=== PATIENT | male | born 1965 | race Caucasian/White ===

== ENCOUNTER 2023-04-12 19:23 | Inpatient (IN) | payer MEDICARE, SELFPAY ==
[2023-04-12] VITALS (26 sets, daily range): BP systolic 107–149; BP diastolic 75–104; PULSE 68–109; RESP 14–25; TEMP 36.7–37.2; O2SAT 88–98; BMI 78.2; BMI 75.4
--- NOTE | 2023-04-12 19:25 | XRR_ITS ---
PROCEDURE INFORMATION: Exam: XR Chest Exam date and time: 04/12/2023 7:30 PM Age: 57 years old Clinical indication: Device placement; Ett placement (vent status); Additional info: Resp failure, intubation TECHNIQUE: Imaging protocol: Radiologic exam of the chest. Views: 1 view. COMPARISON: CR XR chest 1V [id number] 05/07/2018 1:07 PM FINDINGS: Tubes, catheters and devices: The tip of the ETT lies about 1 cm above the merari. Lungs: There is extensive infiltrate and volume loss throughout both lungs. Pleural spaces: Unremarkable. No pleural effusion. No pneumothorax. Heart/Mediastinum: Unremarkable. No cardiomegaly. Bones/joints: Unremarkable. XR/XR chest 1V portable [id number] IMPRESSION: 1. Severe bilateral pulmonary infiltrates 2. The ETT tip lies 1 cm above the merari
--- NOTE | 2023-04-12 19:32 | W.ED.GENADLT ---
HPI - General Adult General: Chief complaint: Shortness of Breath/Dyspnea Stated complaint: respiratory distress Time Seen by Provider: 04/12/23 19:25 Mode of arrival: EMS Limitations: other (Arrived intubated) History of Present Illness: Patient presented to the ER by EMS with respiratory failure. Patient has been having problems breathing all day long. Patient's O2 sat was approximately 50% on room air and he said his heart rate bradycardia all the way down into the 40s Patient was intubated in the field by EMS. They performed RSI with rocuronium and etomidate patient is normally supposed to be on oxygen but he did not have his oxygen on at that time. His initial CO2 per EMS was in the 90s and by the time they got him here he was in the 80s. Patient is morbidly obese. No other information is known about him. There is no family members with him. Review of Systems General: Reports: ROS unobtainable due to endotracheal tube PFSH ED PFSH: Medical History Lymphedema Neuropathy HTN (hypertension) Obesity Surgical History Hx of tonsillectomy H/O hernia repair Hx of cholecystectomy Hx of appendectomy Social History Smoking and tobacco/nicotine status: never used tobacco/nicotine Alcohol intake: current Alcohol intake frequency: holidays/special occasions only Substance/Drug Use: never Physical Exam Const: OTHER: Morbidly obese, RSI, intubated HENMT: COMMON NORMALS: normocephalic and atraumatic HEAD & SCALP: normocephalic and atraumatic OTHER: ET tube in place Eye: OTHER: Pinpoint pupils Chest: COMMONS NORMALS: normal inspection of the chest and normal palpation of entire chest wall Resp: OTHER: Decreased breath sounds throughout Cardio: COMMON NORMALS: regular rate, regular rhythm, S1 normal heart sound present and S2 normal heart sound present RATE: regular rate RHYTHM: regular rhythm HEART SOUNDS: S1 normal heart sound present and S2 normal heart sound present GI: COMMON NORMALS: Normal to inspection, nondistended, normoactive bowel sounds present, Soft to palpation and no masses PALPATION: Yes Soft to palpation Course Vital Signs: Vital signs: Vital Signs Temperature 98.9 F 04/12/23 22:55 Pulse Rate 71 04/13/23 00:15 Respiratory Rate 16 04/13/23 00:17 Blood Pressure 145/103 04/13/23 00:15 Pulse Oximetry 95 04/13/23 00:17 Oxygen Delivery Me thod Mechanical Ventil ation 04/13/23 00:15 Fraction of Inspir ed Oxygen 100 04/13/23 00:17 MDM - General Adult Medical Decision Making Patient presents to the ER and abated paralyzed by RSI by EMS. Patient was placed on our vent by respiratory and a blood gas was obtained as well as lab work chest x-ray. During his process patient started to wake up patient was given 5 mg of Versed, put on a Versed drip, given 20 mg of etomidate, put on a Precedex drip, the Versed drip and Precedex drip were titrated up per protocol. Chest x-ray showed severe bilateral pulmonary infiltrates. Patient is requiring 100% oxygen on the ventilator to keep his saturation upwards of 90+ percent. Patient was bolused 1 L normal saline. Patient's lactic acid was 5.0. Patient's BNP was approximately 5600. Urine urine drug screen influenza and COVID were negative. Dr. Diaz was consulted who agreed to accept the patient to the ICU for further evaluation and treatment. Differential Diagnosis Respiratory failure Medical Records I reviewed the patient's medical records. Lab Data I reviewed the patient's lab results. 04/13/23 03:03 04/13/23 03:03 Radiology Impressions Chest X-Ray 04/12/23 21:32 IMPRESSION: Tip of the feeding tube is beyond the field of view, distal to the gastroesophageal junction. Laboratory Results WBC 12.80 10^3/uL (3.29-11.43) H 04/12/23 19:25 RBC 5.45 10^6/uL (3.85-5.65) 04/12/23 19:25 Hgb 14.90 g/dL (11.27-16.99) 04/12/23 19:25 Hct 51.2 % (37-53) 04/12/23 19:25 MCV 93.9 fl (82-101) 04/12/23 19:25 MCH 27.3 pg (27-33) 04/12/23 19: MCHC 29.1 g/dL (30-55) L 04/12/23 19: RDW 14.7 % (12.1-15.1) 04/12/23 19: Plt Count 270 10^3/cmm (157-399) 04/12/23 19: MPV 9.5 fL (7.4-10.4) 04/12/23 19: Neut % (Auto) 66.1 % 04/12/23 19:25 Lymph % (Auto) 18.9 % 04/12/23 19:25 Lyman % (Auto) 12.3 % 04/12/23 19:25 Eos % (Auto) 0.0 % 04/12/23: Baso % (Auto) 0.2 % 04/12/23: Neut # (Auto) 8.47 10^3/uL (1.8-7.7) H 04/12/23 19: Lymph # (Auto) 2.4 10^3/uL (0.8-4.8) 04/12/23 19:25 Lyman # (Auto) 1.6 10^3/uL (0.2-0.9) H 04/12/23 19:25 Eos # (Auto) 0.0 10^3/uL (0.0-0.8) 04/12/23 19: Baso # (Auto) 0.0 10^3/uL (0.0-0.1) 04/12/23: Nucleated RBC % (auto) 1.2 % 04/12/23: Nucleated RBCs # 0.2 /100WBC 04/12/23 19:25 Specimen Type Arterial 04/12/23 21:25 Sample Site Radial, right 04/12/23 21:25 ABG pH 7.33 (7.35-7.45) L 04/12/23 21:25 ABG pCO2 64.1 mmHg (35-45) H* 04/12/23 21: ABG pO2 72.1 mmHg (80.0-100.0) L 04/12/23 21: ABG PO2/FiO2 Ratio 0 04/12/23 21: ABG HCO3 33.8 mmol/L (22-26) H 04/12/23 21:25 ABG O2 Saturation 92.0 04/12/23 19:40 ABG Base Excess 5.5 mmol/L (-2.0-2.0) H 04/12/23 21:25 Marcos Test Pos 04/12/23 21:25 A-a O2 Gradient 71.8 mmHg (5-10) H 04/12/23 19:40 Hematocrit 45.3 % (42-52) 04/12/23 21:25 Hgb O2 Saturation 89.4 % (95-100) L 04/12/23 19:40 Carboxyhemoglobin 2.1 %THgb (0.4-20.1) 04/12/23 19:40 Methemoglobin 0.7 % (0.4-1.5) 04/12/23 19:40 Total Hemoglobin 15.1 g/dL (14-18) 04/12/23 19:40 Sodium 139.0 mmol/L (131-143) 04/12/23 19:40 Potassium 4.8 mmol/L (3.5-5.0) 04/12/23 19:40 Glucose 177.0 mg/dL (70-115) H 04/12/23 19:40 Ionized Calcium 1.1 mmol/L (1.1-1.4) 04/12/23 19:40 O2 Delivery Device Vent 04/12/23 21:25 FiO2 100.0 % 04/12/23 21:25 Tidal Volume 0.50 04/12/23 21:25 PEEP 10.0 cmH20 04/12/23 21:25 Supervisor Stitching Department ID [email or web address] 04/12/23 21:25 Sodium 138 mmol/L (136-145) 04/12/23 19:25 Potassium 5.5 mmol/L (3.5-5.1) H 04/12/23 19:25 Chloride 95 mmol/L (98-107) L 04/12/23 19:25 Carbon Dioxide 28 mmol/L (22-29) 04/12/23 19:25 Anion Gap 20.5 (5-19) H 04/12/23 19:25 BUN 22 mg/dL (6-20) H 04/12/23 19:25 Creatinine 1.8 mg/dL (0.7-1.2) H 04/12/23 19:25 GFR Calculation 39.2 mL/min (90-130) L 04/12/23 19:25 Glucose 182 mg/dL (65-115) H 04/12/23 19:25 POC Glucose 160 mg/dL (70-110) H 04/12/23 19:38 Calculated Osmolality 294 mOsm/kg (285-295) 04/12/23 19:25 Lactic Acid 5.0 mmol/L (0.5-2.2) H* 04/12/23 19:25 Calcium 8.5 mg/dL (8.5-10.5) 04/12/23 19:25 Magnesium 2.1 mg/dL (1.7-2.3) 04/12/23 19:25 Total Bilirubin 0.7 mg/dL (0.15-1.2) 04/12/23 19:25 AST 39 U/L (0-40) 04/12/23 19:25 ALT 45 U/L (0-41) H 04/12/23 19:25 Alkaline Phosphatase 85 U/L (40-130) 04/12/23 19:25 Creatine Kinase 800 U/L (39-308) H* 04/12/23 19:25 Troponin T Baseline 47 ng/L (0-15) H 04/12/23 19:25 Troponin T 120 Minute 50.38 ng/L (0-15) H 04/12/23 21:05 Delta Troponin T 3.38 ABS# (0-10) 04/12/23 21:05 NT-Pro-B Natriuret Pep 5601 pg/mL (0-125) H 04/12/23 19:25 Total Protein 6.5 g/dL (6.6-8.7) L 04/12/23 19:25 Albumin 3.6 g/dL (3.5-5.2) 04/12/23 19:25 Globulin 2.9 g/dL (1.3-4.6) 04/12/23 19:25 Procalcitonin 0.16 ng/mL (0-0.5) 04/12/23 19:25 TSH 4.86 uIU/mL (0.27-4.20) H 04/12/23 19:25 Urine Color Yellow (Yellow) 04/12/23 20:01 Urine Appearance Clear (CLEAR) 04/12/23 20:01 Urine pH 5 (5-7) 04/12/23 20:01 Ur Specific Spreckels 1.025 (1.005-1.030) 04/12/23 20:01 Urine Protein 1+ (Negative) H 04/12/23 20:01 Urine Glucose (UA) Norm (Normal) 04/12/23 20:01 Urine Ketones Negative (Negative) 04/12/23 20:01 Urine Blood Neg (Negative) 04/12/23 20: Urine Nitrate Negative (Negative) 04/12/23 20:01 Urine Bilirubin 1+ (Negative) H 04/12/23 20:01 Urine Urobilinogen 1 mg/dL (Negative) H 04/12/23 20:01 Ur Leukocyte Esterase Negative (Negative) 04/12/23 20:01 Urine RBC 0-4 /hpf (0-2) H 04/12/23 20:01 Urine WBC 0-4 /hpf (0-5) H 04/12/23 20:01 Ur Squamous Epith Cells 0-4 /hpf (0-5) H 04/12/23 20:01 Amorphous Sediment Not Reportable 04/12/23 20:01 Urine Bacteria Trace /hpf (NONE) 04/12/23 20:01 Hyaline Casts 10-15 /lpf H 04/12/23 20:01 Fine Granular Casts 0-4 /lpf H 04/12/23 20:01 Urine Mucus 1+ /hpf 04/12/23 20:01 Urine Opiates Screen Negative ng/mL (Negative) 04/12/23 20:01 Ur Barbiturates Screen Negative ng/mL (Negative) 04/12/23 20:01 Ur Phencyclidine Scrn Negative ng/mL (Negative) 04/12/23 20:01 Ur Amphetamines Screen Negative ng/mL (Negative) 04/12/23 20:01 U Benzodiazepines Scrn Negative ng/mL (Negative) 04/12/23 20:01 Urine Cocaine Screen Negative ng/mL (Negative) 04/12/23 20:01 U Marijuana (THC) Screen Negative ng/mL (Negative) 04/12/23 20:01 Influenza Type A Ag negative (Negative) 04/12/23 20:35 Influenza Type B Ag negative (Negative) 04/12/23 20:35 SARS-CoV-2 Ag (Rapid) negative (Negative) 04/12/23 20:01 All radiology interpretation(s) finalized by discharge EKG Data EKG 1: I personally reviewed and interpreted this EKG as follows: EKG interpretation date: 04/12/23 EKG interpretation time: 19:38 Prior EKG tracings: not available for review Interpretation: Ventricular rate 105 bpm, VA interval 129, QRS duration 135, QTc of 431, sinus tachycardia, left axis deviation, right bundle branch block, Computer generated interpretation: Chest X-Ray 04/12/23 21:32 IMPRESSION: Tip of the feeding tube is beyond the field of view, distal to the gastroesophageal junction. EKG 2: I personally reviewed and interpreted this EKG as follows: EKG interpretation date: 04/12/23 EKG interpretation time: 22:09 Prior EKG tracings: not available for review Interpretation: Ventricular rate 68 bpm, VA interval 150, QRS duration 125, QTc of 419, sinus rhythm, borderline left axis deviation, right bundle branch block, Computer generated interpretation: Chest X-Ray 04/12/23 21:32 IMPRESSION: Tip of the feeding tube is beyond the field of view, distal to the gastroesophageal junction. Critical Care Time Critical Care Time: Critical Care Time: Yes Total Critical Care Time: 60 Attestation: The patient was emergently evaluated this patient's presentation and case had a high probability of a clinically significant, sudden, or life-threatening deterioration of the patient's initial critical presentation or condition which required my full and direct attention, intervention and personal management. Discharge Plan Discharge Patient Disposition: Admitted As Inpatient Admit Provider: Geovanni Diaz Clinical Impression: Elevated brain natriuretic peptide (BNP) level, Elevated lactic acid level Community acquired pneumonia Qualifiers: Laterality: unspecified laterality Qualified Code(s): J18.9 - Pneumonia, unspecified organism Acute respiratory failure Qualifiers: Respiratory failure complication: hypoxia and hypercapnia Qualified Code(s): J96.01 - Acute respiratory failure with hypoxia Condition: Stable Coding Level of Care Code ED Boilermaker for Jason Gomez
[2023-04-12 19:36] LABS: Basophils % 0.2 %; Hematocrit 51.2 % (37-53); Lymphocytes # 2.4 10^3/uL (0.8-4.8); Lymphocytes % 18.9 %; Mean Corpuscular HGB Conc 29.1 g/dL (30-55); Mean Corpuscular Hemoglobin 27.3 pg (27-33); Mean Corpuscular Volume 93.9 fl (82-101); Mean Platelet Volume 9.5 fL (7.4-10.4); Monocytes # 1.6 10^3/uL (0.2-0.9); Monocytes % 12.3 %; Neutrophils # 8.47 10^3/uL (1.8-7.7); Neutrophils % 66.1 %; Nucleated Red Blood Cells # 0.2 /100WBC; Nucleated Red Blood Cells % 1.2 %; Platelet Count 270 10^3/cmm (157-399); Red Blood Count 5.45 10^6/uL (3.85-5.65); Red Cell Distribution Width 14.7 % (12.1-15.1)
--- NOTE | 2023-04-12 19:38 | ECG_ITS ---
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 Measurements Intervals [place] Rate: 105 P: -42 [place]: 129 QRS: -57 QRSD: 135 T: -89 QT: 370 QTc: 489 Interpretive Statements SINUS TACHYCARDIA LEFT AXIS DEVIATION [QRS AXIS < -30] RIGHT BUNDLE BRANCH BLOCK [120+ ms QRS DURATION, UPRIGHT V1, 40+ ms S IN I/aVL/V4/V5/V6] MODERATE T-WAVE ABNORMALITY, CONSIDER ANTEROLATERAL ISCHEMIA [-0.1+ mV T-WAVE IN V3-V6] No previous ECG available for comparison Electronically Signed On 04-13-2023 0:41:32 PUBLIC HEALTH AIDE by Prosper Sewell M.D. [id number]
[2023-04-12] MEDS: sodium chloride 0.9% 1,000 ML 999 ML IV (19:39)
[2023-04-12 19:41] LABS: Glucose Point of Care 160 mg/dL (70-110)
[2023-04-12] MEDS: midazolam hcl 100 MG/100 ML BAG IV (19:42)
[2023-04-12 19:47] LABS: ABG PH Result 7.25 (7.35-7.45); Alveolar-Arterial Oxygen Gradi 71.8 mmHg (5-10); Arterial Blood Gas Hematocrit 46.3 % (42-52); Base Excess ABG 2.2 mmol/L (-2.0-2.0); Blood Gas Allen Test Pos; Blood Gas Sample Site Radial, right; Blood Gas Sample Type Arterial; Carboxyhemoglobin 2.1 %THgb (0.4-20.1); HGB O2 Sat 89.4 % (95-100); Ionized Calcium Level - ABG 1.1 mmol/L (1.1-1.4); Methemoglobin 0.7 % (0.4-1.5); Oxygen Device VENT; PO2 ABG 66.2 mmHg (80.0-100.0); PO2 FiO2 Ratio Arterial Blood 0; Potassium Level - ABG 4.8 mmol/L (3.5-5.0); Total Hemoglobin 15.1 g/dL (14-18)
[2023-04-12 19:48] LABS: ABG PCO2 73.1 mmHg (35-45)
[2023-04-12 20:01] LABS: Troponin(5th) Baseline 47 ng/L (0-15)
[2023-04-12] MEDS: midazolam 1 mg/mL INJ 2 mL 4 MG IVP (20:07)
[2023-04-12 20:13] LABS: NT Pro B Type Natriuretic Pept 5601 pg/mL (0-125); Procalcitonin 0.16 ng/mL (0-0.5); Thyroid Stimulating Hormone 4.86 uIU/mL (0.27-4.20)
[2023-04-12 20:24] LABS: Alanine Aminotransferase 45 U/L (0-41); Albumin Level 3.6 g/dL (3.5-5.2); Alkaline Phosphatase 85 U/L (40-130); Aspartate Amino Transferase 39 U/L (0-40); Blood Urea Nitrogen 22 mg/dL (6-20); Calcium 8.5 mg/dL (8.5-10.5); Carbon Dioxide 28 mmol/L (22-29); Chloride 95 mmol/L (98-107); Creatinine Clr Calc Pharmacy 84.5045; Globulin 2.9 g/dL (1.3-4.6); Glomerular Filtration Rate 39.2 mL/min (90-130); Glucose 182 mg/dL (65-115); Magnesium 2.1 mg/dL (1.7-2.3); Osmolality Calculated 294 mOsm/kg (285-295); Sodium 138 mmol/L (136-145); Total Bilirubin 0.7 mg/dL (0.15-1.2); Total Protein 6.5 g/dL (6.6-8.7)
[2023-04-12] MEDS: etomidate 2 mg/mL INJ SDV 10 mL 20 MG IVP (20:25)
[2023-04-12 20:30] LABS: Anion Gap 20.5 (5-19); Potassium 5.5 mmol/L (3.5-5.1)
[2023-04-12] MEDS: dexmedeTOMIDine 0.9 % NaCL 400 MCG/100 ML PREMIX 11.3399999999999999 MCG IV (20:37)
[2023-04-12 20:49] LABS: Amphetamines Screen Urine Negative (Negative); Barbiturates Screen Urine Negative (Negative); Benzodiazepines Screen Urine Negative (Negative); Cocaine Screen Urine Negative (Negative); Opiate Screen Urine Negative (Negative); PCP Screen Urine Negative (Negative); THC Screen Urine Negative (Negative)
[2023-04-12 20:54] LABS: SARS Covid-2 Antigen negative (Negative)
[2023-04-12 20:57] LABS: Blood Urine Neg (Negative); Glucose Urine UA Norm (Normal); Ketones Urine Negative (Negative); Nitrate Urine Negative (Negative); Protein Urine 1+ (Negative); Specific Gravity, Urine 1.025 (1.005-1.030); Urine Appearance Clear (CLEAR); Urine Color Yellow (Yellow); pH Urine 5 (5-7)
[2023-04-12 20:58] LABS: Add Urine Microscopic? YES; Bacteria Urine TRACE /hpf; Bilirubin Urine 1+ (Negative); Leukocyte Esterase Urine Negative (Negative); Mucus Urine 1+ /hpf; RBC Urine 0-4 /hpf (0-2); Squamous Epithelial Cell Urine 0-4 /hpf (0-5); Urobilinogen Urine 1 mg/dL (Negative); WBC Urine 0-4 /hpf (0-5)
[2023-04-12 20:59] LABS: Add Urine Culture? No; Fine Granular Casts Urine 0-4 /lpf
[2023-04-12] MEDS: piperacillin-tazobactam 3.375 GM in sodium chloride 0.9% (plus) 50 ML IV (21:01)
[2023-04-12 21:20] LABS: Reflex Lactate Order REFLEX LACTIC ORDERD
--- NOTE | 2023-04-12 21:26 | ECG_ITS ---
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 Measurements Intervals [place] Rate: 68 P: -27 [place]: 150 QRS: -30 QRSD: 125 T: -61 QT: 401 QTc: 429 Interpretive Statements SINUS RHYTHM BORDERLINE LEFT AXIS DEVIATION [QRS AXIS < -20] RIGHT BUNDLE BRANCH BLOCK [120+ ms QRS DURATION, UPRIGHT V1, 40+ ms S IN I/aVL/V4/V5/V6] MODERATE T-WAVE ABNORMALITY, CONSIDER ANTEROLATERAL ISCHEMIA [-0.1+ mV T-WAVE IN V3-V6] MODERATE T-WAVE ABNORMALITY, CONSIDER INFERIOR ISCHEMIA [-0.1+ mV T-WAVE IN II/aVF] Compared to ECG 04/12/2023 19:38:57 Sinus tachycardia no longer present T-wave abnormality still present Possible ischemia still present Electronically Signed On 04-13-2023 1:05:14 AUTO SERVICE DISPATCHER by Prosper Sewell M.D. [id number]
--- NOTE | 2023-04-12 21:32 | XRR_ITS ---
PROCEDURE INFORMATION: Exam: XR Chest Exam date and time: 04/12/2023 9:44 PM Age: 57 years old Clinical indication: Device placement; Ng tube; Additional info: Og tube placement TECHNIQUE: Imaging protocol: Radiologic exam of the chest. Views: 1 view. COMPARISON: CR XR chest 1V portable [id number] 04/12/2023 7:30 PM FINDINGS: Tubes, catheters and devices: Tip of the feeding tube is beyond the field of view, distal to the gastroesophageal junction. ET tube is in 1 cm above the merari. Lungs: Similar extensive infiltrates and volume loss of the left lung with improved aeration of the right lung. Poor inspiratory effort. Pleural spaces: Unremarkable. No pleural effusion. No pneumothorax. Heart/Mediastinum: Unremarkable. No cardiomegaly. Bones/joints: Unremarkable. XR/XR chest 1V portable [id number] IMPRESSION: Tip of the feeding tube is beyond the field of view, distal to the gastroesophageal junction.
[2023-04-12 21:33] LABS: Troponin 5 2HR 50.38 ng/L (0-15); Troponin 5 2HR Delta 3.38 ABS# (0-10)
[2023-04-12 21:34] LABS: ABG PCO2 64.1 mmHg (35-45); ABG PH Result 7.33 (7.35-7.45); Arterial Blood Gas Hematocrit 45.3 % (42-52); Base Excess ABG 5.5 mmol/L (-2.0-2.0); Blood Gas Allen Test Pos; Blood Gas Sample Site Radial, right; Blood Gas Sample Type Arterial; HCO3 ABG 33.8 mmol/L (22-26); Oxygen Device VENT; PO2 ABG 72.1 mmHg (80.0-100.0); PO2 FiO2 Ratio Arterial Blood 0
[2023-04-12 21:42] LABS: Influenza A by IFA negative (Negative); Influenza B by IFA negative (Negative)
--- NOTE | 2023-04-12 22:19 | P.HP_ITS ---
Providers/Chief Complaint 2 Admitting Physician: Geovanni Diaz Chief Complaint: respiratory distress History of Present Illness 57-year-old gentleman was intubated and route to the hospital due to acute on chronic respiratory failure with oxygen saturation reported at home and 50s on room air, reportedly had oxygen but was not using it for some reason. He reportedly had problems breathing today through the day. In ER his saturations are in the low 90s on 100% FiO2, PEEP of 10, ABG 7.25/73/66.2/32. Intermittently with noted lactic acidosis of 5, acute kidney injury creatinine 1.8, BUN 22. Potassium 5.5. TSH 4.86. Chest x-ray with severe bilateral pulmonary infiltrates. Review of Systems 2 General: Reports: ROS unobtainable due to endotracheal tube Medications/Allergies Allergies Allergy/AdvReac Type Severity Reaction Status Date / Time No Known Allergies Allergy Verified 04/12/23 19:33 PFSH Acute 2 PFSH: Medical History Lymphedema Neuropathy HTN (hypertension) Obesity Surgical History Hx of tonsillectomy H/O hernia repair Hx of cholecystectomy Hx of appendectomy Social History Smoking and tobacco/nicotine status: never used tobacco/nicotine Alcohol intake: current Alcohol intake frequency: holidays/special occasions only Substance/Drug Use: never Vitals/I&O/Wt Last Vital Signs Temp 98.0 F 04/12/23 19:26 Pulse 109 H 04/12/23 19:26 Resp 16 04/12/23 22:01 BP 108/78 04/12/23 19:26 Pulse Ox 93 04/12/23 22:01 O2 Del Method Mechanical Ventilation 04/12/23 22:01 FiO2 100 04/12/23 22:01 04/12/23 04/12/23 04/12/23 06:59 14:59 22:59 Intake Total 1020.905 / 1020.905 Balance 1020.905 / 1020.905 Weight last 48 hrs Weight 226.796 kg Physical Exam 2 Const: COMMON NORMALS: negative for alert GENERAL APPEARANCE: patient mechanically ventilated NUTRITIONAL APPEARANCE: obese morbidly obese O RIENTATION/CONSCIOUSNESS: not awake HENMT: COMMON NORMALS: oropharynx normal Neck/C-Spine: OTHER: Unable to assess for JVD Resp: COMMON NORMALS: normal respiratory effort and clear to auscultation bilaterally AUSCULTATION: clear to auscultation bilaterally Cardio: COMMON NORMALS: no JVD, regular rhythm, S1 normal heart sound present, S2 normal heart sound present and No murmurs present (Cardio) RHYTHM: regular rhythm HEART SOUNDS: S1 normal heart sound present and S2 normal heart sound present GI: COMMON NORMALS: Normal to inspection, nondistended, normoactive bowel sounds present, Soft to palpation and non-tender PALPATION: Yes Soft to palpation Extremity: COMMON NORMALS: no joint enlargement and no pedal edema Neuro: SENSORIUM/ORIENTATION: Yes alert Skin: OTHER: No visible rashes. Sepsis: Is patient septic: Yes Focused sepsis exam: Good capillary refill, no mottling or cyanosis. Data 04/12/23 19:25 04/12/23 19:25 Micro: Microbiology 04/12/23 21:05 Blood Culture - Preliminary Blood SPECIMEN COLLECTED 04/12/23 21:05 Blood Culture - Preliminary Blood SPECIMEN COLLECTED A&P Assessment and plan (1) Acute respiratory failure: Acute on possibly chronic respiratory failure, reportedly he had oxygen at home but was not using it. Saturation in the 50s on arrival of EMS. Intubated and round. Continues on 100% FiO2, PEEP 10. Saturation in low 90s. Bilateral pneumonia on chest x-ray. Received Zosyn. Sepsis complicated with lactic acidosis, TITI. Received bolus of fluids. Noted elevated BNP. Unknown cardiac function. Continue empiric antibiotic coverage with Zosyn, linezolid with monitoring for agranulocytosis due to risk. Obtain COVID PCR, sputum culture, urine bacterial antigens, urine Legionella antigen, MRSA PCR. Continue mechanical ventilatory support, sedation with Versed, additionally has Precedex on board, was trying to self extubate earlier. Monitor blood pressure. Heart rate. Discussed with ER provider and nursing staff. Admitted to ICU. Stress ulcer and DVT prophylaxis. Qualifiers: Respiratory failure complication: hypoxia and hypercapnia Qualified Code(s): J96.01 - Acute respiratory failure with hypoxia; J96.02 - Acute respiratory failure with hypercapnia (2) Community acquired pneumonia: Bilateral pneumonia, additional workup and management as above. Qualifiers: Laterality: unspecified laterality Qualified Code(s): J18.9 - Pneumonia, unspecified organism (3) Elevated lactic acid level: Received 1 L fluid bolus, hold off additional fluids with abnormally elevated BNP, unknown cardiac status. Morbid obesity. Assess TTE. Monitor blood pressures. (4) Elevated brain natriuretic peptide (BNP) level: Assess TTE. May be misleading in setting of TITI. (5) TITI (acute kidney injury): Suspected prerenal TITI, initially blood pressure reported soft, received 1 L fluid with improvement. Hold antihypertensives. Monitor blood pressures. Obtain kidney ultrasound. Check CK Plan Hyperkalemia: Recheck BMP. Check CK. Elevated TSH: Check free T4 Hypertension: Hold antihypertensives due to soft blood pressure at presentation. Morbid obesity: Will need follow-up for weight loss options. Neuropathy Home medications unknown, requested to confirm home medications, please reconcile and resume once available. Attestations 2 Medical Necessity Statement*: Admission of over 2 midnights anticipated for assessment of management of acute on chronic respiratory failure, bilateral pneumonia, TITI. Coding Level of Care Code Critical Care >/= 30 minutes Critical care time (in minutes): 40 Diagnoses Acute respiratory failure J96.01; J96.02 Respiratory failure complication: hypoxia and hypercapnia Community acquired pneumonia J18.9 Laterality: unspecified laterality Elevated lactic acid level R79.89 Elevated brain natriuretic peptide (BNP) level R79.89 TITI (acute kidney injury) N17.9
[2023-04-12] MEDS: dexmedeTOMIDine 0.9 % NaCL 400 MCG/100 ML PREMIX 56.7000000000000028 MCG IV (22:20)
[2023-04-12 22:46] LABS: Lactic Acid level (Lactate) 1.7 mmol/L (0.5-2.2)
--- NOTE | 2023-04-12 22:52 | US_ITS ---
WS: [id number] RENAL ULTRASOUND HISTORY: TITI COMPARISON: None available. TECHNIQUE: 2-D and color Doppler imaging of the kidney submitted. Quality this examination is compromised by body habitus. Right kidney: 12.8 cm x 6.3 cm x 6.4 cm. Cortex: 1.9 cm Normal echogenicity with no hydronephrosis or mass. Left kidney: 12.8 cm x 6.1 cm x 6.0 cm. Cortex: 1.9 cm Normal echogenicity with no hydronephrosis or mass. Aorta: Normal. Urinary Bladder: Nondistended. Kothari catheter present. IMPRESSION: 1. Technically very difficult evaluation of the kidneys due to body habitus. 2. No hydronephrosis. 3. Normal size kidneys.
--- NOTE | 2023-04-12 22:52 | USCV_ITS ---
Denis Munoz Age: 57 Gender: M : 1965 Exam Date: 04/12/2023 23:31 Ordering Phys: Geovanni Diaz MD Technologist: HAYDEN Exam Location: [facility] [place] Indication: respiratory failure, presenting in ER with sats in 50's, on ventilator in ICU-8. BP: 130 / 92 HR: 67 Rhythm: Sinus Technical Quality: technically difficult with [employer] MEASUREMENTS (Male / Female) Normal Values 2D ECHO LV Diastolic Diameter PLAX 4.2 cm 4.2 - 5.9 / 3.9 - 5.3 cm LV Systolic Diameter PLAX 2.8 cm IVS Diastolic Thickness 1.8 cm 0.6 - 1.0 / 0.6 - 0.9 cm IVS Systolic Thickness 2.7 cm LVPW Diastolic Thickness 1.8 cm 0.6 - 1.0 / 0.6 - 0.9 cm LVPW Systolic Thickness 2.1 cm LVOT Diameter 2.3 cm LV Ejection Fraction 2D Teich 62.2 % LV Ejection Fraction MOD 2C 49.9 % LV Ejection Fraction 2C AL 53.3 % LA Diameter 4.2 cm LA Width 4.0 cm LA Height 6.1 cm RA Width 6.1 cm RA Height 5.2 cm Aorta at Sinotubular Diameter 3.3 cm IVC Diameter 2.8 cm M-MODE Aortic Annulus Diameter 3.6 cm LA Ao Ratio MM 1.3 DOPPLER AV Peak Velocity 73.0 cm/s LVOT Peak Velocity 60.0 cm/s AV Area Cont Eq vti 2.8 cm squared AV Area Cont Eq pk 3.3 cm squared MV Peak Velocity 64.0 cm/s MV Area PHT 2.8 cm squared Mitral E to A Ratio 0.8 MV E' Velocity 51.0 cm/s TV Peak E Velocity 38.0 cm/s PV Peak Velocity 53.0 cm/s RV Acceleration Time 0.1 s RV Ejection Time 0.2 s RV AcT/ET 0.4 FINDINGS Left Ventricle Right Ventricle Right Atrium Left Atrium Mitral Valve Aortic Valve Tricuspid Valve Pulmonic Valve Pericardium Aorta IVC CONCLUSIONS Technically very limited quality echocardiogram. Despite of contrast, cardiac structures not well-visualized. At least moderately reduced LV systolic function. Cannot determine regional wall motion abnormalities or accurate EF Kamari Herman MD (Electronically Signed) Final Date: 13 April 2023 11:02 S
[2023-04-12 23:06] LABS: Creatine Phosphokinase 800 U/L (39-308)
[2023-04-12] MEDS: pantoprazole 40 mg SDV IVP (23:45)
[2023-04-12] MEDS: linezolid premix 600 MG/300 ML PREMIX 300 MG IV (23:46)
[2023-04-12] MEDS: enoxaparin 40 mg/0.4 mL Syringe SUBCUT (23:46)
[2023-04-13] VITALS (97 sets, daily range): BP systolic 84–152; BP diastolic 55–107; PULSE 58–85; RESP 14–16; TEMP 36.7–38.2; O2SAT 89–96
[2023-04-13] MEDS: dexmedeTOMIDine 0.9 % NaCL 400 MCG/100 ML PREMIX 56.7000000000000028 MCG IV (00:15)
[2023-04-13 01:23] LABS: Anion Gap 14.1 (5-19); Blood Urea Nitrogen 26 mg/dL (6-20); Calcium 7.8 mg/dL (8.5-10.5); Carbon Dioxide 31 mmol/L (22-29); Chloride 97 mmol/L (98-107); Creatinine Clr Calc Pharmacy 88.0352; Glomerular Filtration Rate 36.9 mL/min (90-130); Glucose 193 mg/dL (65-115); Osmolality Calculated 292 mOsm/kg (285-295); Potassium 6.1 mmol/L (3.5-5.1); Sodium 136 mmol/L (136-145)
--- NOTE | 2023-04-13 01:26 | ECG_ITS ---
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 Measurements Intervals [place] Rate: 70 P: 62 CT: 161 QRS: -38 QRSD: 133 T: 263 QT: 422 QTc: 458 Interpretive Statements SINUS RHYTHM WITH FREQUENT VENTRICULAR PREMATURE COMPLEXES LEFT AXIS DEVIATION [QRS AXIS < -30] RIGHT BUNDLE BRANCH BLOCK [120+ ms QRS DURATION, UPRIGHT V1, 40+ ms S IN I/aVL/V4/V5/V6] POSSIBLE ANTERIOR MYOCARDIAL INFARCTION , OF INDETERMINATE AGE [30 ms Q WAVE IN V3/V4, OR R < 0.2 mV IN V4] MODERATE T-WAVE ABNORMALITY, CONSIDER LATERAL ISCHEMIA [-0.1+ mV T-WAVE IN I/aVL/V5/V6] MODERATE T-WAVE ABNORMALITY, CONSIDER INFERIOR ISCHEMIA [-0.1+ mV T-WAVE IN II/aVF] Compared to ECG 04/12/2023 22:09:28 Ventricular premature complex(es) now present Myocardial infarct finding now present T-wave abnormality still present Possible ischemia still present Electronically Signed On 04-13-2023 7:52:11 MACHINE SETTER by Kamari Herman M.D. [id number]
[2023-04-13] MEDS: dexmedeTOMIDine 0.9 % NaCL 400 MCG/100 ML PREMIX 51.0300000000000011 MCG IV (01:55)
[2023-04-13 03:31] LABS: Basophils % 0.1 %; Eosinophils % 0.2 %; Hematocrit 47.8 % (37-53); Lymphocytes # 1.4 10^3/uL (0.8-4.8); Mean Corpuscular HGB Conc 30.1 g/dL (30-55); Mean Corpuscular Hemoglobin 27.5 pg (27-33); Mean Corpuscular Volume 91.4 fl (82-101); Mean Platelet Volume 9.9 fL (7.4-10.4); Monocytes # 1.7 10^3/uL (0.2-0.9); Monocytes % 15.8 %; Neutrophils # 7.64 10^3/uL (1.8-7.7); Nucleated Red Blood Cells % 0.4 %; Platelet Count 238 10^3/cmm (157-399); Red Blood Count 5.23 10^6/uL (3.85-5.65); Red Cell Distribution Width 14.8 % (12.1-15.1); White Blood Count 10.91 10^3/uL (3.29-11.43)
[2023-04-13 03:59] LABS: Alanine Aminotransferase 43 U/L (0-41); Albumin Level 3.3 g/dL (3.5-5.2); Alkaline Phosphatase 78 U/L (40-130); Anion Gap 13.6 (5-19); Aspartate Amino Transferase 31 U/L (0-40); Blood Urea Nitrogen 26 mg/dL (6-20); Calcium 8.2 mg/dL (8.5-10.5); Carbon Dioxide 32 mmol/L (22-29); Chloride 98 mmol/L (98-107); Creatinine Clr Calc Pharmacy 88.0352; Globulin 3.1 g/dL (1.3-4.6); Glomerular Filtration Rate 36.9 mL/min (90-130); Glucose 157 mg/dL (65-115); Osmolality Calculated 294 mOsm/kg (285-295); Potassium 5.6 mmol/L (3.5-5.1); Sodium 138 mmol/L (136-145); Total Bilirubin 0.9 mg/dL (0.15-1.2); Total Protein 6.4 g/dL (6.6-8.7)
[2023-04-13 04:00] LABS: Free T4 Free Thyroxine 0.93 ng/dL (0.82-1.77)
[2023-04-13 04:02] LABS: Creatine Phosphokinase 563 U/L (39-308)
[2023-04-13] MEDS: enoxaparin 100 mg/mL Syringe 110 MG SUBCUT (04:06)
[2023-04-13] MEDS: piperacillin-tazobactam 3.375 GM in sodium chloride 0.9% (plus) 50 ML IV ×3 (04:06→20:37)
[2023-04-13] MEDS: dextrose 10% 1,000 ML 75 ML IV (04:07)
[2023-04-13] MEDS: calcium gluconate 0.9% NaCL 1 GM/50 ML PREMIX IV (04:08)
[2023-04-13] MEDS: aspirin 325 mg Tablet PO (04:08)
[2023-04-13] MEDS: insulin regular-human 10 UNIT in SYRINGE 1 EACH IVP (04:14)
[2023-04-13] MEDS: propofol 1,000 MG/100 ML INJ 7.36000000000000032 MG IV (05:26)
--- NOTE | 2023-04-13 05:41 | PC.NURSE ---
Dr. Diaz was contacted about cardiac arrhythmias and bradycardia occurring possibly from the precedex drip. He ordered the precedex to be stopped and for propofol to be started per protocol.
[2023-04-13 05:56] LABS: ABG PCO2 50.6 mmHg (35-45); ABG PH Result 7.45 (7.35-7.45); Alveolar-Arterial Oxygen Gradi 73.3 mmHg (5-10); Arterial Blood Gas Hematocrit 41.5 % (42-52); Base Excess ABG 9.5 mmol/L (-2.0-2.0); Blood Gas Allen Test Pos; Blood Gas Operator Identificat JB; Blood Gas Sample Site Radial, right; Blood Gas Sample Type Arterial; Carboxyhemoglobin 0.9 %THgb (0.4-20.1); HCO3 ABG 35.1 mmol/L (22-26); HGB O2 Sat 94.2 % (95-100); Ionized Calcium Level - ABG 1.2 mmol/L (1.1-1.4); Methemoglobin 0.4 % (0.4-1.5); Oxygen Device VENT; Oxygen Saturation ABG 95.4; PO2 ABG 73.6 mmHg (80.0-100.0); PO2 FiO2 Ratio Arterial Blood 0; Potassium Level - ABG 4.7 mmol/L (3.5-5.0); Total Hemoglobin 13.5 g/dL (14-18)
[2023-04-13] MEDS: perflutren protein-a microsphr 0.22 mg/mL SDV 3 mL IV (06:12)
--- NOTE | 2023-04-13 06:37 | PC.NURSE ---
Addendum entered by Ellie Foster RN 04/13/23 06:59: Witnessed the placement of patient's phone, jewelry, and glasses into the ICU pyxis with NORMA Ricketts. Original Note: Patient's phone, jewelry, and glasses were placed in the pyxis. Witnessed by this nurse and Sylvia GREEN.
[2023-04-13 08:03] LABS: Glucose Point of Care 115 mg/dL (70-110)
--- NOTE | 2023-04-13 08:18 | PC.NURSE ---
is at bedside, belonings given to , included ring, phone, and glasses
[2023-04-13] MEDS: acetaminophen 325 mg Tablet 650 MG PO (08:23)
[2023-04-13] MEDS: ipratropium-albuterol 3 mL Neb INHALATION ×3 (08:32→19:59)
--- NOTE | 2023-04-13 08:34 | PC.PHAR ---
PT UNABLE TO VERIFY MEDS- PT ON VENT- PTS FRIEND STS HE TAKES CARE OF HIS OWN MEDICATIONS- MEDICATIONS VERIFIED USING EXTERNAL MED LIST AND CALLING PHARMACY
--- NOTE | 2023-04-13 08:52 | ECG_ITS ---
[facility] Test Date: 2023-04-13 Pat Name: Denis Munoz Department: Room: ICU08 Gender: Male Time Clock Repairer: : 1965 Requested By: Som Bradley Order Number: [id number] Heber MD: Kamari Herman M.D. Measurements Intervals [place] Rate: 63 P: 14 MD: 146 QRS: -34 QRSD: 128 T: -85 QT: 457 QTc: 471 Interpretive Statements SINUS RHYTHM WITH OCCASIONAL SUPRAVENTRICULAR PREMATURE COMPLEXES LEFT AXIS DEVIATION [QRS AXIS < -30] RIGHT BUNDLE BRANCH BLOCK [120+ ms QRS DURATION, UPRIGHT V1, 40+ ms S IN I/aVL/V4/V5/V6] MODERATE T-WAVE ABNORMALITY, CONSIDER ANTEROLATERAL ISCHEMIA [-0.1+ mV T-WAVE IN V3-V6] MODERATE T-WAVE ABNORMALITY, CONSIDER INFERIOR ISCHEMIA [-0.1+ mV T-WAVE IN II/aVF] Compared to ECG 04/13/2023 05:36:05 Ventricular premature complex(es) no longer present Myocardial infarct finding no longer present T-wave abnormality still present Possible ischemia still present Electronically Signed On 04-13-2023 11:54:16 CHEESE WRAPPER by Kamari Herman M.D. [id number]
--- NOTE | 2023-04-13 09:09 | XR_ITS ---
WS: [id number] Exam: XR chest 1V portable [id number] Date/Time of Exam: 04/13/2023 9:32 AM Reason For Exam: Post PICC insertion Comparison 04/12/2023. A right-sided PICC line has been placed and probably ends near the cavoatrial junction. There is sign ificant rotation of the chest. The RIGHT lung base is out of the qobdw-aw-hbir. There is diffuse infi ltrate throughout the visualized RIGHT lung. There is marked cardiac enlargement. There is increased density in the LEFT retrocardiac region that may represent atelectasis or consolidating infiltrate in the LEFT lower lobe. An ET tube is in place ending at about the level of the T3-4 disc level. An ent uziel tube extends below the diaphragm but the tip is not visible. No pneumothorax is seen. IMPRESSION: 1. Right-sided PICC line in place ending at the expected region of the cavoatrial junction. 2. There is new widespread infiltrate throughout the visualized RIGHT lung when compared to the prior study 04/12/2023. Parts of the mid and lower RIGHT lung are out of the lgfho-gt-dyad. 3. Marked cardiac enlargement with increased LEFT retrocardiac density that may represent consolidati on or atelectasis in the LEFT lower lobe. 4. ET tube in place as discussed above.. A repeat study visualizing the all aspects of the chest is recommended for follow-up.
[2023-04-13] MEDS: norepinephrine 4 MG/250 ML BAG 7.5 MG IV (09:17)
[2023-04-13] MEDS: fentaNYL 1,000 MCG/100 ML BAG 2.5 MCG IV (09:31)
--- NOTE | 2023-04-13 09:45 | PC.NURSE ---
Triple lumen PICC placed to right basilic vein. Referred to vascular access nurse for PICC placement due to poor access and need for multiple IV meds. Pt intubated. Pt mother and daughter at bedside. Risks and benefits discussed with family and informed consent obtained from daughter. Right arm assessed with right basilic vein measuring 5.0 mm, straight, and apparent best choice for access. Using sterile technique and MST, right basilic vein accessed x 1 stick. Mid-arm circumference measured 10 cm from right AC 47 cm. Cath 55 cm with 0 cm external length noted. CXR shows tip in SVC, cavoatrial junction, in good position for use per radiologist. Line secured with stat-lock. Insertion site covered with Biopatch and TSM. Report given to bedside nurseJam.
[2023-04-13] MEDS: linezolid premix 600 MG/300 ML PREMIX 300 MG IV ×2 (10:40→23:33)
[2023-04-13] MEDS: propofol 1,000 MG/100 ML INJ 14.7300000000000004 MG IV (12:47)
[2023-04-13 12:50] LABS: Adenovirus Not Detected (NOT DETECT); Chlamydia Pneumoniae Not Detected (NOT DETECT); Coronavirus 229E,HKU1,NL63,OC4 Not Detected (NOT DETECT); Human Metapneumovirus Not Detected (NOT DETECT); Human Rhinovirus/Enterovirus Not Detected (NOT DETECT); Influenza A Not Detected (NOT DETECT); Influenza A H1 Not Detected (NOT DETECT); Influenza A H1-2009 Not Detected (NOT DETECT); Influenza A H3 Not Detected (NOT DETECT); Influenza B Not Detected (NOT DETECT); Mycoplasma Pneumoniae Not Detected (NOT DETECT); Parainfluenza Virus Type 1 Not Detected (NOT DETECT); Parainfluenza Virus Type 2 Not Detected (NOT DETECT); Parainfluenza Virus Type 3 Not Detected (NOT DETECT); Parainfluenza Virus Type 4 Not Detected (NOT DETECT); Respiratory Syncytial Virus A Not Detected (NOT DETECT); Respiratory Syncytial Virus B Not Detected (NOT DETECT); SARS-COV-2 Not Detected (NOT DETECT)
--- NOTE | 2023-04-13 13:15 | P.PN_ITS ---
Subjective 2 Subjective: Patient is intubated sedated Currently on FiO2 100% with high PEEP Potassium 5.6, creatinine 1.9 Vitals/I&O/Wt Last Vital Signs Temp 100.7 F H 04/13/23 07:30 Pulse 65 04/13/23 13:11 Resp 14 04/13/23 13:00 BP 90/61 04/13/23 09:30 Pulse Ox 96 04/13/23 13:00 O2 Del Method Mechanical Ventilation 04/13/23 13:00 FiO2 85 04/13/23 13:00 04/12/23 04/13/23 04/13/23 22:59 06:59 14:59 Intake Total 1080.440 / 1080.440 325.185 / 9715.129 3388.474 / 1372.474 Output Total 650 / 650 Balance 1080.440 / 1080.440 -324.815 / 441.314 5015.474 / 1372.474 Weight last 48 hrs Weight 245.479 kg Weight 245.479 kg Weight 245.479 kg Weight 226.796 kg Physical Exam 2 Narrative: Morbidly obese Currently on maximum FiO2 Bilateral assisted breath sounds On Versed and propofol Abdomen distended nontender Lower extremity edema present ET tube size 9 24 cm at lip Hypotensive Urinary Catheter Management: Kothari: Cath Placed During This Visit: yes Reason for Continuing Indwelling Catheter: Accurate Measurement of Urinary Output in Critically Ill Patients Urinary Catheter Date of Insertion: 04/13/23 Urinary Catheter Time of Insertion: 20:00 Data 04/13/23 03:03 04/13/23 03:03 Micro: Microbiology 04/13/23 00:00 Bacterial Antigens - Final Urine,Clean Catch 04/13/23 05:50 Gram Stain - Final Sputum - Endotracheal Tube Aspirate 04/13/23 00:00 Legionella Urinary Antigen - Final Urine Catheterized 04/12/23 21:05 Blood Culture - Preliminary Blood SPECIMEN COLLECTED 04/12/23 21:05 Blood Culture - Preliminary Blood SPECIMEN COLLECTED A&P Assessment and plan (1) Community acquired pneumonia: Qualifiers: Laterality: unspecified laterality Qualified Code(s): J18.9 - Pneumonia, unspecified organism (2) Acute respiratory failure: Qualifiers: Respiratory failure complication: hypoxia and hypercapnia Qualified Code(s): J96.01 - Acute respiratory failure with hypoxia; J96.02 - Acute respiratory failure with hypercapnia (3) Elevated lactic acid level: (4) Cardiogenic shock: (5) Non-STEMI (non-ST elevated myocardial infarction): (6) Acute renal failure (ARF): Plan Acute hypoxic respiratory failure FiO2 100% PEEP around 10 Bilateral infiltrates left greater than right Cardiogenic shock Clinical signs of fluid overload High BNP Troponin leak noted Requested echo Levo started today Acute renal failure cardiorenal in nature Creatinine 1.9 Potassium 5.6 Lactic acidemia related to cardiogenic shock Non-STEMI ST depressions noted on EKG, will wait for echo report Will call cardiology after echo report Abnormal TSH with normal free T4 Patient might need MUGA scan Full code N.p.o. for now Added Levophed today Acute recurrent pneumonia continue antibiotics Attestations 2 Medical Necessity Statement*: Continue ICU management Coding Level of Care Code Critical Care >/= 30 minutes Critical care time (in minutes): 50 The high probability of a clinically significant, sudden or life threatening deterioration, as referenced in this documentation, required my full and direct attention, intervention and personal management. The critical care time shown is in addition to time spent performing any reported separately billable procedures and includes the following: [x] Data and vital sign review and interpretation [x ] Patient assessment, examination and intervention [x] Medication orders and management [x] Patient/Family updates as able [x] Care Coordination and Documentation. Diagnoses Community acquired pneumonia J18.9 Laterality: unspecified laterality Acute respiratory failure J96.01; J96.02 Respiratory failure complication: hypoxia and hypercapnia Elevated lactic acid level R79.89 Cardiogenic shock R57.0 Non-STEMI (non-ST elevated myocardial infarction) I21.4 Acute renal failure (ARF) N17.9
[2023-04-13] MEDS: FUROsemide 10 mg/mL SDV 4mL 40 MG IVP (13:30)
[2023-04-13] MEDS: clopidogrel 300 mg Tablet PO (13:32)
[2023-04-13] MEDS: calcium gluconate 0.1 gm/mL 10% SDV 10mL 1 GM IVP (13:35)
--- NOTE | 2023-04-13 14:13 | P.EN_ITS ---
Event Note Event Note: Spoke with the family, they are telling me that patient has canceled his appointment at [place] he was recommended to go to [place] for stress test and CT chest Because they have a bigger load capacity for CT for morbid obese patienthe has never smoked, he was diagnosed with apnea in October at [facility] they were not able to know his EF because of body habitus echo was unremarkable previous history of cholecystectomy and hernia repair
[2023-04-13 14:32] LABS: Glucose Point of Care 110 mg/dL (70-110)
[2023-04-13 16:32] LABS: Anion Gap 11.6 (5-19); Blood Urea Nitrogen 30 mg/dL (6-20); Calcium 8.1 mg/dL (8.5-10.5); Carbon Dioxide 33 mmol/L (22-29); Chloride 97 mmol/L (98-107); Creatinine Clr Calc Pharmacy 79.6509; Glomerular Filtration Rate 32.8 mL/min (90-130); Glucose 113 mg/dL (65-115); Osmolality Calculated 291 mOsm/kg (285-295); Potassium 4.6 mmol/L (3.5-5.1); Sodium 137 mmol/L (136-145)
[2023-04-13] MEDS: enoxaparin 100 mg/mL Syringe 150 MG SUBCUT (16:48)
[2023-04-13 16:58] LABS: Glucose Point of Care 101 mg/dL (70-110)
--- NOTE | 2023-04-13 17:57 | PC.NURSE ---
SHift Summary: uneventful shift. Titrated versed off and started propofol. Levophed needed in the AM, but was titrated off. FIO2 reduced from 100% to 90%. total urine output has been 1125mL. Urine output was initially low this morning, but increased after lasix was given. PICC line inserted and will need first dressing change on 04/14/2023.
[2023-04-13] MEDS: propofol 1,000 MG/100 ML INJ 22.0899999999999999 MG IV (19:25)
[2023-04-13] MEDS: fentaNYL 1,000 MCG/100 ML BAG 7.5 MCG IV (21:48)
[2023-04-13 22:24] LABS: Glucose Point of Care 98 mg/dL (70-110)
[2023-04-13] MEDS: propofol 1,000 MG/100 ML INJ 29.4600000000000009 MG IV (22:43)
[2023-04-13] MEDS: pantoprazole 40 mg SDV IVP (23:32)
[2023-04-14] VITALS (58 sets, daily range): BP systolic 99–146; BP diastolic 65–94; PULSE 58–85; RESP 14–17; TEMP 36.1–36.5; O2SAT 85–95
[2023-04-14] MEDS: FUROsemide 10 mg/mL SDV 4mL 40 MG IVP ×4 (00:44→20:39)
[2023-04-14] MEDS: propofol 1,000 MG/100 ML INJ 29.4600000000000009 MG IV (01:42)
[2023-04-14] MEDS: ipratropium-albuterol 3 mL Neb INHALATION ×5 (03:02→21:01)
[2023-04-14 04:17] LABS: Glucose Point of Care 95 mg/dL (70-110)
[2023-04-14] MEDS: piperacillin-tazobactam 3.375 GM in sodium chloride 0.9% (plus) 50 ML IV ×3 (04:33→20:39)
[2023-04-14] MEDS: enoxaparin 100 mg/mL Syringe 150 MG SUBCUT (04:33)
[2023-04-14] MEDS: propofol 1,000 MG/100 ML INJ 44.1899999999999977 MG IV (04:54)
[2023-04-14 05:04] LABS: Basophils % 0.4 %; Eosinophils # 0.1 10^3/uL (0.0-0.8); Eosinophils % 0.5 %; Hematocrit 44.9 % (37-53); Lymphocytes # 3.2 10^3/uL (0.8-4.8); Lymphocytes % 30.2 %; Mean Corpuscular Hemoglobin 27.7 pg (27-33); Mean Corpuscular Volume 89.4 fl (82-101); Mean Platelet Volume 10.1 fL (7.4-10.4); Monocytes # 1.3 10^3/uL (0.2-0.9); Monocytes % 12.7 %; Neutrophils # 5.85 10^3/uL (1.8-7.7); Neutrophils % 55.6 %; Nucleated Red Blood Cells % 0 %; Platelet Count 242 10^3/cmm (157-399); Red Blood Count 5.02 10^6/uL (3.85-5.65); Red Cell Distribution Width 15.2 % (12.1-15.1); White Blood Count 10.51 10^3/uL (3.29-11.43)
[2023-04-14 05:15] LABS: ABG PH Result 7.36 (7.35-7.45); Arterial Blood Gas Hematocrit 45.9 % (42-52); Base Excess ABG 6.5 mmol/L (-2.0-2.0); Blood Gas Allen Test Pos; Blood Gas Sample Site Radial, right; Blood Gas Sample Type Arterial; HCO3 ABG 34.2 mmol/L (22-26); PO2 ABG 55.4 mmHg (80.0-100.0)
[2023-04-14 05:16] LABS: ABG PCO2 60.6 mmHg (35-45)
[2023-04-14 05:18] LABS: Blood Gas Operator Identificat JB; Blood Gas Tidal Volume 0.45; Oxygen Device VENT; PO2 FiO2 Ratio Arterial Blood 0
[2023-04-14 05:30] LABS: Glucose Point of Care 109 mg/dL (70-110)
[2023-04-14 05:42] LABS: Creatine Phosphokinase 191 U/L (39-308)
[2023-04-14 05:43] LABS: Albumin Level 2.9 g/dL (3.5-5.2); Alkaline Phosphatase 67 U/L (40-130); Blood Urea Nitrogen 33 mg/dL (6-20); Calcium 8.1 mg/dL (8.5-10.5); Carbon Dioxide 31 mmol/L (22-29); Chloride 95 mmol/L (98-107); Creatinine Clr Calc Pharmacy 88.1325; Globulin 3.4 g/dL (1.3-4.6); Glomerular Filtration Rate 36.9 mL/min (90-130); Glucose 112 mg/dL (65-115); Osmolality Calculated 290 mOsm/kg (285-295); Sodium 136 mmol/L (136-145); Total Bilirubin 0.7 mg/dL (0.15-1.2); Total Protein 6.3 g/dL (6.6-8.7)
[2023-04-14 05:44] LABS: Anion Gap 15.2 (5-19); Potassium 5.2 mmol/L (3.5-5.1)
[2023-04-14 05:45] LABS: Alanine Aminotransferase 32 U/L (0-41); Aspartate Amino Transferase 25 U/L (0-40)
[2023-04-14] MEDS: propofol 1,000 MG/100 ML INJ 51.5499999999999972 MG IV ×9 (06:55→23:37)
[2023-04-14] MEDS: aspirin 325 mg Tablet PO (07:54)
[2023-04-14] MEDS: lactulose oral liq 20 gm/30 mL UDC 10 GM PO (07:54)
[2023-04-14] MEDS: clopidogrel 75 mg Tablet PO (07:55)
--- NOTE | 2023-04-14 08:40 | XR_ITS ---
WS: [id number] Exam: XR chest 1V portable [id number] Date/Time of Exam: 04/14/2023 8:44 AM Reason For Exam: F/U Comparison 04/13/2023. ET tube ends at about the level of T4. The heart is enlarged but unchanged in size. There is infiltra te in the mid and lower RIGHT lung and probable RIGHT basal pleural effusion. There is increased dens ity in the LEFT retrocardiac region that may represent consolidation and/or atelectasis in the LEFT l ower lobe. An enteric tube extends below the diaphragm and apparently ends in the stomach however the sideport of the tube may be near the GE junction. Significant rotation of the chest. No pneumothorax seen. IMPRESSION1. Infiltrate in the mid and lower RIGHT lung and RIGHT pleural effusion. 2. Increased LEFT retrocardiac density suggesting either consolidation and/or atelectasis in the LEFT lower lobe. 3. Cardiac enlargement unchanged. 4. ET tube ending at about the level of T4. Enteric tube enters the stomach. The sideport of the tube may be close to the GE junction. The tube could be advanced another 4 to 5 cm for optimal position.
[2023-04-14] MEDS: nystatin powder 15 gm Btl 1 APPLIC TOPICAL ×2 (08:59→18:15)
[2023-04-14] MEDS: fentaNYL 1,000 MCG/100 ML BAG 10 MCG IV ×2 (09:17→19:26)
[2023-04-14 10:52] LABS: Glucose Point of Care 88 mg/dL (70-110)
[2023-04-14] MEDS: linezolid premix 600 MG/300 ML PREMIX 300 MG IV ×2 (11:13→22:27)
--- NOTE | 2023-04-14 11:17 | PM.PN ---
Subjective Subjective: Patient is persistently hypoxic We had to go back up to 100% oxygen after titrating down to 90% last night Requested Mucomyst DuoNeb and chest vest therapy As per pharmacy we are not able to do heparin weight-based protocol because of high BMI We also limited in terms of her Lovenox max dose especially with underlying chronic kidney disease X-ray showing vascular congestion, Vitals/I&O/Wt Last Vital Signs Temp 97.7 F 04/14/23 11:00 Pulse 78 04/14/23 11:00 Resp 14 04/14/23 11:00 BP 133/81 04/14/23 11:00 Pulse Ox 89 L 04/14/23 11:00 O2 Del Method Mechanical Ventilation 04/14/23 11:00 FiO2 90 04/14/23 11:00 04/13/23 04/14/23 04/14/23 22:59 06:59 14:59 Intake Total 266.273 / 1638.747 391.139 / 2029.886 593.833 / 593.833 Output Total 1350 / 1475 750 / 2225 Balance -1083.727 / 163.747 -358.861 / -195.114 593.833 / 593.833 Weight last 48 hrs Weight 245.875 kg Weight 245.875 kg Weight 245.479 kg Weight 245.479 kg Weight 245.479 kg Weight 226.796 kg Physical Exam Narrative: Morbidly obese Signs of fluid overload Distended abdomen Bowel sounds sluggish Lower extremity edema Intertrigo Abdominal pannus FiO2 100% Off Levophed FiO2 increased from 90 to 100% PEEP 10 Urinary Catheter Management: Kothari: Cath Placed During This Visit: yes Reason for Continuing Indwelling Catheter: Accurate Measurement of Urinary Output in Critically Ill Patients Urinary Catheter Date of Insertion: 04/13/23 Urinary Catheter Time of Insertion: 20:00 Data 04/14/23 04:27 04/14/23 04:27 Micro: Microbiology 04/12/23 21:05 Blood Culture - Preliminary Blood NEGATIVE TO DATE 04/12/23 21:05 Blood Culture - Preliminary Blood NEGATIVE TO DATE 04/13/23 00:00 Bacterial Antigens - Final Urine,Clean Catch 04/13/23 05:50 Gram Stain - Final Sputum - Endotracheal Tube Aspirate A&P Assessment and plan (1) Elevated brain natriuretic peptide (BNP) level: (2) Cardiogenic shock: (3) Non-STEMI (non-ST elevated myocardial infarction): (4) Acute renal failure (ARF): (5) Community acquired pneumonia: Qualifiers: Laterality: unspecified laterality Qualified Code(s): J18.9 - Pneumonia, unspecified organism (6) Acute respiratory failure: Qualifiers: Respiratory failure complication: hypoxia and hypercapnia Qualified Code(s): J96.01 - Acute respiratory failure with hypoxia; J96.02 - Acute respiratory failure with hypercapnia (7) Elevated lactic acid level: Plan Non-STEMI Weight-based anticoagulation is difficult considering his BMI Will test with pharmacy if we have other options at this point Spoke with terminal operations supervisor we do not have appropriate table considering his BMI He is not stable to be transferred currently FiO2 is fraction between 90 to 100% Persistent hypoxia Acute hypoxia hypercapnic respite failure Intubated and sedated Respiratory failure Communicare pneumonia Continue antibiotics No fever today Local no leukocytosis Advance endotracheal tube by 2 cm it is around the clavicle Large thick secretions suctioned today Cardiogenic shock: Off Levophed today EF is unknown Abdominal pannus intertrigo start nystatin powder Patient is not stable to be transferred to tertiary center Acute renal failure Hyperkalemia No significant EKG changes related to hyperkalemia Adequate urine output Nonoliguric ATN Creatinine 1.9 Spoke with the family, Full code N.p.o. We might have to start TPN in a few days Attestations Medical Necessity Statement*: Continue ICU management Coding Level of Care Code Critical Care >/= 30 minutes Critical care time (in minutes): 35 The high probability of a clinically significant, sudden or life threatening deterioration, as referenced in this documentation, required my full and direct attention, intervention and personal management. The critical care time shown is in addition to time spent performing any reported separately billable procedures and includes the following: [x] Data and vital sign review and interpretation [x] Patient assessment, examination and intervention [x] Medication orders and management [x] Patient/Family updates as able [x] Care Coordination and Documentation. Diagnoses Elevated brain natriuretic peptide (BNP) level R79.89 Cardiogenic shock R57.0 Non-STEMI (non-ST elevated myocardial infarction) I21.4 Acute renal failure (ARF) N17.9 Community acquired pneumonia J18.9 Laterality: unspecified laterality Acute respiratory failure J96.01; J96.02 Respiratory failure complication: hypoxia and hypercapnia Elevated lactic acid level R79.89
[2023-04-14] MEDS: acetylcysteine 200 mg/mL MDV 10 mL INHALATION ×3 (12:27→21:02)
[2023-04-14] MEDS: insulin regular-human 10 UNIT in SYRINGE 1 EACH 0.100000000000000006 UNIT IVP (12:33)
[2023-04-14] MEDS: dextrose 10% 250 ML 1000 ML IV (12:33)
--- NOTE | 2023-04-14 13:17 | PC.NURSE ---
MTS, Mily Valencia, called and notified of patient's condition. Referral made.
[2023-04-14] MEDS: heparin 5,000 unit/mL INJ 1 mL IV (14:06)
[2023-04-14] MEDS: heparin drip 25,000 UNIT/500 ML PREMIX 57 UNIT IV (14:08)
[2023-04-14 14:14] LABS: Glucose Point of Care 135 mg/dL (70-110)
--- NOTE | 2023-04-14 14:35 | PC.NURSE ---
Heparin drip dosed by pharmacy and per Dr. Bradley per weight. Heparin protocol max is 205 kg and patient is 246 kg.
--- NOTE | 2023-04-14 15:11 | PC.NURSE ---
SPO2 trending down, maintained around 85%. Patient repositioned multiple times without change in SPO2. Dr. Bradley called and notified, he will contact the patient's . 40 mg IVP lasix ordered.
[2023-04-14 16:21] LABS: ABG PH Result 7.33 (7.35-7.45); Arterial Blood Gas Hematocrit 44.9 % (42-52); Base Excess ABG 5.7 mmol/L (-2.0-2.0); Blood Gas Allen Test Pos; Blood Gas Sample Type Arterial; Carboxyhemoglobin 0.7 %THgb (0.4-20.1); HGB O2 Sat 84.1 % (95-100); Ionized Calcium Level - ABG 1.1 mmol/L (1.1-1.4); Methemoglobin 0.5 % (0.4-1.5); Oxygen Saturation ABG 85.1; PO2 ABG 54.5 mmHg (80.0-100.0); Total Hemoglobin 14.6 g/dL (14-18)
[2023-04-14 16:22] LABS: Alveolar-Arterial Oxygen Gradi 76.9 mmHg (5-10); Blood Gas Operator Identificat MONRO; Blood Gas Sample Site Radial, right; Oxygen Device VENT; PO2 FiO2 Ratio Arterial Blood 0
[2023-04-14 16:23] LABS: ABG PCO2 64.6 mmHg (35-45)
--- NOTE | 2023-04-14 16:32 | XRR_ITS ---
PROCEDURE INFORMATION: Exam: XR Chest Exam date and time: 04/14/2023 4:39 PM Age: 57 years old Clinical indication: Device placement; Ett placement (vent status); Additional info: Ett placement verification TECHNIQUE: Imaging protocol: Radiologic exam of the chest. Views: 1 view. COMPARISON: CR XR chest 1V portable [id number] 04/14/2023 8:49 AM FINDINGS: Limitations: The study is made with less than full inspiration. Tubes, catheters and devices: Endotracheal tube tip is 3 cm above the merari. Right PICC line tip is in the superior vena cava. Lungs: There is partial atelectasis at both lung bases. There is no pulmonary venous congestion. Left lower lobe consolidation or pneumonia not significantly changed. Pleural spaces: There are moderate bilateral pleural effusions Heart/Mediastinum: Heart is within normal limits of size. Bones/joints: Unremarkable. XR/XR chest 1V portable [id number] IMPRESSION: 1. Satisfactory position of endotracheal tube. 2. No change in pleural effusions atelectasis and left lower lobe pneumonia.
[2023-04-14 16:39] LABS: Methicillin-Resist S.aureu PCR NOT DETECTED (NOT DETECTED)
--- NOTE | 2023-04-14 18:00 | PC.NURSE ---
Son and at bedside, update given, no further questions. Poor prognosis.
[2023-04-14 18:08] LABS: Glucose Point of Care 112 mg/dL (70-110)
[2023-04-14 21:06] LABS: Glucose Point of Care 103 mg/dL (70-110)
[2023-04-14 21:55] LABS: Partial Thromboplastin Time 132.6 SECONDS (23.9-36.7)
[2023-04-14] MEDS: chlorhexidine gluconate 4% Btl 118 mL 1 APPLIC TOPICAL (22:27)
[2023-04-14] MEDS: pantoprazole 40 mg SDV IVP (22:27)
[2023-04-14] MEDS: heparin drip 25,000 UNIT/500 ML PREMIX 45 UNIT IV (23:47)
[2023-04-15] VITALS (56 sets, daily range): BP systolic 99–165; BP diastolic 55–87; PULSE 69–86; RESP 14–18; TEMP 36.2–36.8; O2SAT 85–96
[2023-04-15] MEDS: ipratropium-albuterol 3 mL Neb INHALATION ×7 (00:04→23:30)
[2023-04-15] MEDS: acetylcysteine 200 mg/mL MDV 10 mL INHALATION ×7 (00:04→23:30)
[2023-04-15 00:37] LABS: ABG PCO2 53.2 mmHg (35-45); ABG PH Result 7.43 (7.35-7.45); Arterial Blood Gas Hematocrit 43.4 % (42-52); Base Excess ABG 8.8 mmol/L (-2.0-2.0); Blood Gas Allen Test Pos; Blood Gas Sample Site Radial, right; Blood Gas Sample Type Arterial; Blood Gas Tidal Volume 0.55; Oxygen Device VENT; PO2 ABG 64.6 mmHg (80.0-100.0); PO2 FiO2 Ratio Arterial Blood 0
[2023-04-15 00:56] LABS: Glucose Point of Care 119 mg/dL (70-110)
[2023-04-15] MEDS: propofol 1,000 MG/100 ML INJ 58.9200000000000017 MG IV ×8 (01:23→14:02)
--- NOTE | 2023-04-15 03:33 | PC.NURSE ---
When trying to turn the patient on his right side to clean their back their oxygen went down to the low 80s. Patient was placed back like they were before and oxygen went up to 89% which they are maintaining.
[2023-04-15] MEDS: FUROsemide 10 mg/mL SDV 4mL 40 MG IVP ×2 (03:43→11:46)
[2023-04-15] MEDS: piperacillin-tazobactam 3.375 GM in sodium chloride 0.9% (plus) 50 ML IV ×3 (03:43→20:15)
--- NOTE | 2023-04-15 04:33 | PC.NURSE ---
Respiratory Therapist Assessed the patient and they believe the patient has mucus plugs inhibiting oxygen flow. Dr. Diaz was notified and he stated that he will let the day shift doctor know. Due to the possibility of mucus plugs migrating, q2h turns are contraindicated at this time.
[2023-04-15 04:59] LABS: Basophils % 0.5 %; Eosinophils # 0.1 10^3/uL (0.0-0.8); Eosinophils % 1.2 %; Hematocrit 43.4 % (37-53); Lymphocytes # 0.9 10^3/uL (0.8-4.8); Lymphocytes % 10.7 %; Mean Corpuscular HGB Conc 30.9 g/dL (30-55); Mean Corpuscular Hemoglobin 27.2 pg (27-33); Mean Platelet Volume 9.9 fL (7.4-10.4); Monocytes # 1.3 10^3/uL (0.2-0.9); Monocytes % 15.3 %; Neutrophils # 6.18 10^3/uL (1.8-7.7); Neutrophils % 71.8 %; Nucleated Red Blood Cells % 0 %; Platelet Count 238 10^3/cmm (157-399); Red Blood Count 4.93 10^6/uL (3.85-5.65); Red Cell Distribution Width 15.2 % (12.1-15.1)
[2023-04-15] MEDS: fentaNYL 1,000 MCG/100 ML BAG 10 MCG IV ×2 (05:05→14:59)
[2023-04-15 05:19] LABS: Creatine Phosphokinase 239 U/L (39-308)
[2023-04-15 05:22] LABS: Glucose Point of Care 121 mg/dL (70-110)
[2023-04-15 05:22] LABS: Alanine Aminotransferase 25 U/L (0-41); Albumin Level 2.9 g/dL (3.5-5.2); Alkaline Phosphatase 63 U/L (40-130); Blood Urea Nitrogen 28 mg/dL (6-20); Calcium 7.7 mg/dL (8.5-10.5); Carbon Dioxide 31 mmol/L (22-29); Chloride 91 mmol/L (98-107); Creatinine Clr Calc Pharmacy 104.6573; Globulin 3.4 g/dL (1.3-4.6); Glomerular Filtration Rate 44.9 mL/min (90-130); Glucose 119 mg/dL (65-115); Osmolality Calculated 283 mOsm/kg (285-295); Partial Thromboplastin Time 116.8 SECONDS (23.9-36.7); Sodium 133 mmol/L (136-145); Total Bilirubin 0.6 mg/dL (0.15-1.2); Total Protein 6.3 g/dL (6.6-8.7)
[2023-04-15 05:28] LABS: Anion Gap 15.7 (5-19); Aspartate Amino Transferase 21 U/L (0-40); Potassium 4.7 mmol/L (3.5-5.1)
[2023-04-15 05:47] LABS: ABG PCO2 55.8 mmHg (35-45); ABG PH Result 7.41 (7.35-7.45); Arterial Blood Gas Hematocrit 43.7 % (42-52); Base Excess ABG 8.4 mmol/L (-2.0-2.0); Blood Gas Allen Test Pos; Blood Gas Sample Site Radial, right; Blood Gas Sample Type Arterial; Blood Gas Tidal Volume 0.55; HCO3 ABG 35.1 mmol/L (22-26); Oxygen Device VENT; PO2 ABG 55.4 mmHg (80.0-100.0); PO2 FiO2 Ratio Arterial Blood 0
[2023-04-15] MEDS: lactulose oral liq 20 gm/30 mL UDC 10 GM PO (07:48)
[2023-04-15] MEDS: clopidogrel 75 mg Tablet PO (07:49)
[2023-04-15] MEDS: aspirin 81 mg Chew Tablet PO (07:49)
--- NOTE | 2023-04-15 08:39 | US_ITS ---
WS: [id number] INDICATION: Pleural effusion TECHNIQUE: Ultrasound bilateral chest FINDINGS: No significant pleural fluid in the RIGHT chest. Consolidative infiltrate or compressive at electasis LEFT lower lobe with small amount of peripheral fluid. No significant drainable pleural flu id in the LEFT chest. IMPRESSION: See above
[2023-04-15] MEDS: nystatin powder 15 gm Btl 1 APPLIC TOPICAL ×2 (10:17→17:22)
[2023-04-15 10:26] LABS: Partial Thromboplastin Time 72.8 SECONDS (23.9-36.7)
[2023-04-15 10:29] LABS: Glucose Point of Care 108 mg/dL (70-110)
[2023-04-15] MEDS: linezolid premix 600 MG/300 ML PREMIX 300 MG IV ×2 (11:46→23:00)
--- NOTE | 2023-04-15 12:34 | P.PN_ITS ---
Subjective 2 Subjective: Oxygen requirement is down to 90% Afebrile Off pressors Creatinine improving Adequate urine output Requested ultrasound to see if there is drainable pleural effusion aware that IR will not be able to tap him because of Plavix and heparin Vitals/I&O/Wt Last Vital Signs Temp 97.2 F L 04/15/23 00:00 Pulse 78 04/15/23 11:03 Resp 16 04/15/23 11:03 BP 148/57 04/15/23 08:00 Pulse Ox 93 04/15/23 11:03 O2 Del Method Mechanical Ventilation 04/15/23 11:03 FiO2 85 04/15/23 11:03 04/14/23 04/15/23 04/15/23 22:59 06:59 14:59 Intake Total 1249.204 / 2243.037 944.958 / 3187.995 650 / 650 Output Total 1600 / 2200 1075 / 3275 750 / 750 Balance -350.796 / 43.037 -130.042 / -87.005 -100 / -100 Weight last 48 hrs Weight 245.847 kg Weight 245.847 kg Weight 245.875 kg Weight 245.875 kg Physical Exam 2 Narrative: Patient is intubated sedated PEEP around 14 FiO2 90% Abdominal pannus intertrigo No active worsening of cellulitis No sign of foreign years Edema with anasarca Morbid obesity Consider bilateral breath sounds Skin breakdown sacral area reported by the nurse Neuroexam is limited Urinary Catheter Management: Kothari: Cath Placed During This Visit: yes Reason for Continuing Indwelling Catheter: Accurate Measurement of Urinary Output in Critically Ill Patients Urinary Catheter Date of Insertion: 04/13/23 Urinary Catheter Time of Insertion: 20:00 Data 04/15/23 04:13 04/15/23 04:13 Micro: Microbiology 04/13/23 05:50 Gram Stain - Final Sputum - Endotracheal Tube Aspirate Sputum Culture - Preliminary A&P Assessment and plan (1) Cardiogenic shock: (2) Non-STEMI (non-ST elevated myocardial infarction): (3) Acute renal failure (ARF): (4) Community acquired pneumonia: Qualifiers: Laterality: unspecified laterality Qualified Code(s): J18.9 - Pneumonia, unspecified organism (5) Acute respiratory failure: Qualifiers: Respiratory failure complication: hypoxia and hypercapnia Qualified Code(s): J96.01 - Acute respiratory failure with hypoxia; J96.02 - Acute respiratory failure with hypercapnia Plan Respiratory failure requiring mechanical ventilation Plan is to decrease FiO2 and PEEP Keep O2 saturation above 90% Requested thoracentesis evaluation with ultrasound Non-STEMI Patient is aspirin Plavix and heparin He will need an angiogram Will transfer once FiO2 is around 60% Intertrigo continue nystatin powder CHF exacerbation EF is unknown Adequate diuresis Community-acquired pneumonia/aspiration Continue broad-spectrum antibiotic Blood cultures negative Full code Continue n.p.o. status Will probably start PPN in next 24 to 48 hours Attestations 2 Medical Necessity Statement*: Continue medical management Diagnoses Cardiogenic shock R57.0 Non-STEMI (non-ST elevated myocardial infarction) I21.4 Acute renal failure (ARF) N17.9 Community acquired pneumonia J18.9 Laterality: unspecified laterality Acute respiratory failure J96.01; J96.02 Respiratory failure complication: hypoxia and hypercapnia
[2023-04-15] MEDS: heparin drip 25,000 UNIT/500 ML PREMIX 33 UNIT IV (12:42)
[2023-04-15] MEDS: methylPREDNISolone sod succ 125 mg/2 mL INJ 60 MG IVP (14:06)
[2023-04-15] MEDS: propofol 1,000 MG/100 ML INJ 51.5499999999999972 MG IV ×4 (16:02→22:29)
[2023-04-15 16:03] LABS: Glucose Point of Care 122 mg/dL (70-110)
[2023-04-15 16:37] LABS: Partial Thromboplastin Time 61.3 SECONDS (23.9-36.7)
[2023-04-15 17:27] LABS: Glucose Point of Care 127 mg/dL (70-110)
--- NOTE | 2023-04-15 17:39 | XRR_ITS ---
PROCEDURE INFORMATION: Exam: XR Chest Exam date and time: 04/15/2023 6:20 PM Age: 57 years old Clinical indication: Shortness of breath and other: Hypoxia; Additional info: Further hypoxia TECHNIQUE: Imaging protocol: Radiologic exam of the chest. Views: 1 view. COMPARISON: CR XR chest 1V portable [id number] 04/14/2023 4:39 PM FINDINGS: Tubes, catheters and devices: The ET tube is positioned with its tip at the merari. The NG tube tracks into the stomach and off the field of view. Lungs: Patchy consolidation throughout the left lung redemonstrated and similar. Pulmonary vascular congestion. Pleural spaces: Unremarkable. No pleural effusion. No pneumothorax. Heart/Mediastinum: Unremarkable. No cardiomegaly. Bones/joints: Unremarkable. XR/XR chest 1V portable [id number] IMPRESSION: 1. The ET tube is positioned with its tip at the merari. 2. Patchy consolidation throughout the left lung redemonstrated and similar. 3. Pulmonary vascular congestion. 4. The NG tube tracks into the stomach and off the field of view.
[2023-04-15 22:01] LABS: Partial Thromboplastin Time 58.1 SECONDS (23.9-36.7)
[2023-04-15] MEDS: pantoprazole 40 mg SDV IVP (23:00)
[2023-04-15] MEDS: chlorhexidine gluconate 4% Btl 118 mL 1 APPLIC TOPICAL (23:08)
[2023-04-16] VITALS (69 sets, daily range): BP systolic 106–164; BP diastolic 53–87; PULSE 58–91; RESP 16–20; TEMP 36.6–36.7; O2SAT 76–89; BMI 72.3
[2023-04-16] MEDS: propofol 1,000 MG/100 ML INJ 51.5499999999999972 MG IV ×7 (00:06→23:33)
[2023-04-16 00:24] LABS: Glucose Point of Care 154 mg/dL (70-110)
[2023-04-16] MEDS: methylPREDNISolone sod succ 125 mg/2 mL INJ 60 MG IVP ×2 (00:59→13:41)
[2023-04-16] MEDS: fentaNYL 1,000 MCG/100 ML BAG 10 MCG IV (01:06)
[2023-04-16] MEDS: piperacillin-tazobactam 3.375 GM in sodium chloride 0.9% (plus) 50 ML IV ×3 (03:47→20:35)
[2023-04-16] MEDS: heparin drip 25,000 UNIT/500 ML PREMIX 33 UNIT IV (03:47)
[2023-04-16] MEDS: FUROsemide 10 mg/mL SDV 4mL 40 MG IVP ×4 (03:47→20:39)
[2023-04-16] MEDS: acetylcysteine 200 mg/mL MDV 10 mL INHALATION ×5 (03:48→20:01)
[2023-04-16] MEDS: ipratropium-albuterol 3 mL Neb INHALATION ×5 (03:48→20:01)
[2023-04-16 04:07] LABS: ABG PH Result 7.42 (7.35-7.45); Arterial Blood Gas Hematocrit 41.4 % (42-52); Blood Gas Allen Test Pos; Blood Gas Sample Site Radial, left; Blood Gas Sample Type Arterial; HCO3 ABG 36.5 mmol/L (22-26); Oxygen Device VENT; PO2 FiO2 Ratio Arterial Blood 0
[2023-04-16 04:48] LABS: Hematocrit 42.2 % (37-53); Lymphocytes # 0.3 10^3/uL (0.8-4.8); Lymphocytes % 5.5 %; Mean Corpuscular HGB Conc 31.3 g/dL (30-55); Mean Corpuscular Hemoglobin 27.4 pg (27-33); Mean Corpuscular Volume 87.6 fl (82-101); Monocytes # 0.3 10^3/uL (0.2-0.9); Monocytes % 5.2 %; Neutrophils # 5.31 10^3/uL (1.8-7.7); Neutrophils % 88.6 %; Nucleated Red Blood Cells % 0 %; Platelet Count 247 10^3/cmm (157-399); Red Blood Count 4.82 10^6/uL (3.85-5.65); Red Cell Distribution Width 15.4 % (12.1-15.1); White Blood Count 5.99 10^3/uL (3.29-11.43)
[2023-04-16 05:03] LABS: Partial Thromboplastin Time 54.3 SECONDS (23.9-36.7)
[2023-04-16 05:13] LABS: Alanine Aminotransferase 21 U/L (0-41); Albumin Level 3.1 g/dL (3.5-5.2); Alkaline Phosphatase 60 U/L (40-130); Blood Urea Nitrogen 27 mg/dL (6-20); Calcium 7.8 mg/dL (8.5-10.5); Carbon Dioxide 31 mmol/L (22-29); Chloride 93 mmol/L (98-107); Creatinine Clr Calc Pharmacy 139.5322; Globulin 3.5 g/dL (1.3-4.6); Glomerular Filtration Rate 62.6 mL/min (90-130); Glucose 145 mg/dL (65-115); Osmolality Calculated 288 mOsm/kg (285-295); Sodium 135 mmol/L (136-145); Total Bilirubin 0.5 mg/dL (0.15-1.2); Total Protein 6.6 g/dL (6.6-8.7)
[2023-04-16 05:15] LABS: Anion Gap 16.3 (5-19); Aspartate Amino Transferase 21 U/L (0-40); Potassium 5.3 mmol/L (3.5-5.1)
[2023-04-16 05:45] LABS: Glucose Point of Care 145 mg/dL (70-110)
[2023-04-16 05:45] LABS: Glucose Point of Care 165 mg/dL (70-110)
--- NOTE | 2023-04-16 07:00 | XR_ITS ---
WS: [id number] Exam: XR chest 1V portable [id number] Date/Time of Exam: 04/16/2023 7:00 AM Reason For Exam: hypoxia, ETT adjusted Comparison 04/15/2023. ET tube in place ending at about the level of T4. Enteric tube noted in the midline. The sideport of the tube is in the lower esophagus. There is diffuse infiltrate throughout the RIGHT lung which appea rs to have increased. Questionable small pneumothorax along the apex of the LEFT lung. IMPRESSION: 1. Questionable small LEFT upper lobe pneumothorax. 2. ET tube appears to be in satisfactory position. 3. Enteric tube with side port ending in the lower esophagus. The tube should be advanced another 5 t o 6 cm for optimal position. 4. Increasing congestion and infiltrate in the visualized RIGHT lung. RIGHT pleural effusion. Recommendations: Repeat chest x-ray recommended for reevaluation of possible LEFT pneumothorax. These findings were discussed by phone with Dash the ICU nurse caring for the patient at 8:05 a.m. 04/16/2023.
[2023-04-16] MEDS: nystatin powder 15 gm Btl 1 APPLIC TOPICAL ×2 (09:32→17:24)
--- NOTE | 2023-04-16 10:00 | XR_ITS ---
WS: [id number] PORTABLE CHEST x3 HISTORY: repeat to evaluate DESHAUN Pneumo, Feeding tube adjustment COMPARISON: Study earlier the same day. There is a persistent small LEFT apical pneumothorax. No midline shift. Study is extremely limited by patient's body habitus and difficulty positioning. Endotracheal tube an d nasogastric tubes appear to be appropriate. The NG tube does appear to extend below the GE junction . Cardiac size: Mildly enlarged cardiac silhouette. Mediastinum/Aorta: Mildly prominent mediastinum on the basis of supine positioning and body habitus. No osseous abnormality seen. IMPRESSION: 1. Small persistent LEFT apical pneumothorax identified. 2. No tension pneumothorax. 3. Endotracheal and nasogastric tubes in good position. Notified Cain Herrera MD at 04/16/2023 11:54 AM.
[2023-04-16] MEDS: fentaNYL 1,000 MCG/100 ML BAG 12.5 MCG IV (10:32)
[2023-04-16 10:51] LABS: Glucose Point of Care 143 mg/dL (70-110)
[2023-04-16] MEDS: linezolid premix 600 MG/300 ML PREMIX 300 MG IV ×2 (11:00→22:00)
[2023-04-16] MEDS: propofol 1,000 MG/100 ML INJ 66.2800000000000011 MG IV ×7 (12:27→22:07)
[2023-04-16 12:51] LABS: Partial Thromboplastin Time 28.1 SECONDS (23.9-36.7)
--- NOTE | 2023-04-16 13:10 | PM.PN ---
Subjective Subjective: Patient developed pneumothorax, Dr. Pfeiffer is closely monitoring For now there is no worsening of apical pneumothorax Patient is still saturating 86 to 87% on FiO2 100% PEEP has been reduced Creatinine improved Diuretic dose increased Left lobe infiltrate with whiteout Combination of atelectasis Will consult dietitian to evaluate for parenteral nutrition not a candidate to start trickle feed at this point considering high oxygen requirement, obesity hypoventilation, Vitals/I&O/Wt Last Vital Signs Temp 98.1 F 04/16/23 05:00 Pulse 70 04/16/23 12:30 Resp 20 H 04/16/23 11:52 BP 126/75 04/16/23 12:30 Pulse Ox 85 L 04/16/23 12:30 O2 Del Method Mechanical Ventilation 04/16/23 11:10 FiO2 100 04/16/23 11:52 04/15/23 04/16/23 04/16/23 22:59 06:59 14:59 Intake Total 773.400 / 2155.600 1052.789 / 3208.389 873.870 / 873.870 Output Total 1900 / 2650 550 / 3200 1200 / 1200 Balance -1126.600 / -494.400 502.789 / 8.389 -326.130 / -326.130 Weight last 48 hrs Weight 235.103 kg Weight 235.103 kg Weight 245.847 kg Weight 245.847 kg Physical Exam Narrative: FiO2 100% Neuroexam is limited Intubated and sedated Off Levophed Hemodynamically stable Morbid obesity Intertrigo Abdominal pannus Right arm PICC line Secretions noted from endotracheal tube Distended abdomen Bowel sounds sluggish Skin tear sacral area noted by the nursing staff Urinary Catheter Management: Kothari: Cath Placed During This Visit: yes Reason for Continuing Indwelling Catheter: Accurate Measurement of Urinary Output in Critically Ill Patients Urinary Catheter Date of Insertion: 04/13/23 Urinary Catheter Time of Insertion: 20:00 Data 04/16/23 04:36 04/16/23 04:36 Micro: Microbiology 04/13/23 05:50 Gram Stain - Final Sputum - Endotracheal Tube Aspirate Sputum Culture - Final A&P Assessment and plan (1) Elevated brain natriuretic peptide (BNP) level: (2) Cardiogenic shock: (3) Non-STEMI (non-ST elevated myocardial infarction): (4) Acute renal failure (ARF): (5) Community acquired pneumonia: Qualifiers: Laterality: unspecified laterality Qualified Code(s): J18.9 - Pneumonia, unspecified organism (6) Acute respiratory failure: Qualifiers: Respiratory failure complication: hypoxia and hypercapnia Qualified Code(s): J96.01 - Acute respiratory failure with hypoxia; J96.02 - Acute respiratory failure with hypercapnia (7) Elevated lactic acid level: (8) Obesity hypoventilation syndrome: (9) Pneumothorax: Plan Persistent hypoxia Pneumothorax Obesity hypoventilation Atelectasis Left lobe infiltrate Not enough perfusion to be drained Close monitoring in ICU for development of pneumothorax no signs of tension pneumothorax as of yet Appreciate pulmonary recommendations Decrease PEEP Patient intubated sedated FiO2 has not improved still requiring 100% oxygen saturation 87 to 88% Decreasing PEEP today secondary to pneumothorax He may need chest tube if pneumothorax worsens Non-STEMI Holding off on aspirin and Plavix in anticipation of possible chest tube placement Heparin also on hold EF is unknown Cardiomyopathy with CHF exacerbation EF unknown Increase the dose of diuretics to every 8 hours TITI: Resolved with diuresis Full code Patient not ready to be transferred to tertiary level of care because of high oxygen requirement Spoke with Dr. Pfeiffer, retort condenser attendant, for now our plan is to monitor pneumothorax, in case it worsens then we will move ahead with chest tube placement, Attestations Medical Necessity Statement*: Continue ICU management Coding Level of Care Code Critical Care >/= 30 minutes Critical care time (in minutes): 30 The high probability of a clinically significant, sudden or life threatening deterioration, as referenced in this documentation, required my full and direct attention, intervention and personal management. The critical care time shown is in addition to time spent performing any reported separately billable procedures and includes the following: [x] Data and vital sign review and interpretation [x] Patient assessment, examination and intervention [x] Medication orders and management [x] Patient/Family updates as able [x] Care Coordination and Documentation. Diagnoses Elevated brain natriuretic peptide (BNP) level R79.89 Cardiogenic shock R57.0 Non-STEMI (non-ST elevated myocardial infarction) I21.4 Acute renal failure (ARF) N17.9 Community acquired pneumonia J18.9 Laterality: unspecified laterality Acute respiratory failure J96.01; J96.02 Respiratory failure complication: hypoxia and hypercapnia Elevated lactic acid level R79.89 Obesity hypoventilation syndrome E66.2 Pneumothorax J93.9
--- NOTE | 2023-04-16 15:00 | XR_ITS ---
WS: [id number] Exam: XR chest 1V portable [id number] Date/Time of Exam: 04/16/2023 2:51 PM Reason For Exam: Pneumothorax evaluation Compared to the earlier study on the same day at 10:15 a.m. The lungs appear fully expanded. No pneumothorax is seen. The heart is enlarged but unchanged in size . Consolidation in the LEFT retrocardiac region is unchanged and may represent atelectasis and/or pne umonia. Infiltrate in the RIGHT lung is unchanged. ET tube ends about 5 cm above the merari in satisf actory location. Enteric tube extends into the stomach. The tip is difficult to identify. A right-savannah ed PICC line is noted. The tip is not visible. Bony structures are unremarkable. The mediastinum is n ormal in contour for technique. IMPRESSION: 1. No pneumothorax is identified. 2. Dense consolidation in the LEFT retrocardiac region that may represent pneumonia, atelectasis and/ or pleural effusion. 3.. Diffuse infiltrate in the RIGHT lung unchanged. 4. Cardiac enlargement unchanged. 5. ET tube in satisfactory position. Enteric tube in the stomach.
--- NOTE | 2023-04-16 15:23 | P.CONIM_ITS ---
Providers/Reason For Consult 2 Consulting Physician/Specialty*: Cain Herrera MD/pulmonary critical care Reason for Consult*: Hypoxia there is a failure in patient with morbid obesity Requesting Physician: Som Bradley MD Attending Physician: Som Bradley MD History of Present Illness History of Present Illness Denis Munoz is a 57 year old male admitted on 04/12/2023 for acute on chronic respiratory failure. Patient has super morbid obesity with BMI 75 reported that last 6 months his overall health deteriorated and he does not move much. He was having home oxygen but he is not using. Was found to be in saturations of 50 on room air and bradycardia 40s. He was intubated in the field by EMS. His initial CO2's were in 90s but later became down. Admission chest x-ray showed severe bilateral pulmonary infiltrates. There was some evidence of lactic acidosis, TITI, elevated BNP. He was started on empiric antibiotic coverage with Zosyn, linezolid. His urine bacterial antigens, Legionella urine antigen, respiratory viral panel, influenza, COVID-19, MRSA nares, sputum cultures were negative. Pulmonary critical care consult requested for hypoxic respiratory failure requiring 90% FiO2 support on ventilator and possible evaluation for bronchoscopy. Patient seen at bedside-he is sedated and on ventilator at bedside reported patient never smoked used to take alcohol occasionally Today morning chest x-ray showed small apical left pneumothorax Review of Systems 2 General: Reports: ROS unobtainable due to endotracheal tube, ROS unobtainable due to medical condition and ROS unobtainable due to mental status Medications/Allergies Home Medications Medication Instructions Recorded Confirmed Last Taken Type amlodipine 10 mg tablet 10 mg PO DAILY 04/13/23 04/13/23 Unknown History cholecalciferol (vitamin D3) 25 25 mcg PO DAILY 04/13/23 04/13/23 Unknown History mcg (1,000 unit) tablet (Vitamin D3) clonidine HCl 0.1 mg tablet 0.1 mg PO DAILY 04/13/23 04/13/23 Unknown History fluoxetine 20 mg capsule 20 mg PO TID 04/13/23 04/13/23 Unknown History furosemide 20 mg tablet 20 mg PO DAILY 04/13/23 04/13/23 Unknown History gabapentin 300 mg capsule 300 mg PO DAILY 04/13/23 04/13/23 Unknown History lisinopril 40 mg tablet 40 mg PO DAILY 04/13/23 04/13/23 Unknown History metoprolol tartrate 50 mg tablet 50 mg PO DAILY 04/13/23 04/13/23 Unknown History omeprazole 40 mg capsule,delayed 40 mg PO DAILY 04/13/23 04/13/23 Unknown History release ropinirole 2 mg tablet 2 mg PO DAILY 04/13/23 04/13/23 Unknown History rosuvastatin 40 mg tablet 40 mg PO QPM 04/13/23 04/13/23 Unknown History Allergies Allergy/AdvReac Type Severity Reaction Status Date / Time No Known Allergies Allergy Verified 04/12/23 19:33 Current Medications Generic Name Dose Route Start Last Admin Trade Name Freq PRN Reason Stop Dose Admin Acetaminophen 650 mg 04/12/23 22:52 04/13/23 08:23 Acetaminophen 325 Mg Tablet PO 650 mg Q6H PRN Administration Mild/Mod Pain Or Temp >/= 101 Acetylcysteine 200 mg 04/14/23 12:00 04/16/23 11:08 Acetylcysteine 200 Mg/Ml Mdv 10 Ml INHALATION 200 mg Q4H.RESPIRATORY INGA Administration Albuterol/Ipratropium 3 ml 04/14/23 12:00 04/16/23 11:08 Ipratropium-Albuterol 3 Ml Neb INHALATION 3 ml Q4H.RESPIRATORY INGA Administration Aspirin 81 mg 04/15/23 09:00 04/16/23 08:55 Aspirin 81 Mg Chew Tablet PO Not Given DAILY INGA Chlorhexidine Gluconate 1 applic 04/14/23 23:00 04/15/23 23:08 Chlorhexidine Gluconate 4% Btl 118 Ml TOPICAL 1 applic Q24H INGA Administration Clopidogrel Bisulfate 75 mg 04/14/23 09:00 04/16/23 08:55 Clopidogrel 75 Mg Tablet PO Not Given DAILY INGA Furosemide 40 mg 04/16/23 13:30 04/16/23 13:42 Furosemide 10 Mg/Ml Sdv 4ml IVP 40 mg Q8H INGA Administration Heparin Sodium (Porcine) 0 unit 04/14/23 13:07 04/14/23 14:06 Heparin 5,000 Unit/Ml Inj 1 Ml IV 7,000 unit PRN PRN Administration Heparin weight-base protocol Protocol Piperacillin Sod/Tazobactam 50 mls @ 12.5 mls/hr 04/13/23 04:30 04/16/23 13:41 Sod 3.375 gm/ Sodium Chloride IV 12.5 mls/hr Q8H INGA Administration Protocol Linezolid 600 mg in 300 mls @ 300 mls/hr 04/12/23 22:52 04/16/23 12:05 Zyvox Premix IV Infused Q12H INGA Infusion Protocol Propofol 1,000 mg in 100 mls @ 0 mls/hr 04/13/23 04:45 04/16/23 13:51 Diprivan IV 45 mcg/kg/min .Q0M INGA 66.28 mls/hr Administration Protocol Per Protocol norepinephrine 4 mg in 250 mls @ 0 mls/hr 04/13/23 09:00 04/14/23 06:30 Levophed IV 0 mcg/min .Q0M INGA 0 mls/hr Titration Protocol Per Protocol Fentanyl 1,000 mcg in 100 mls @ 0 mls/hr 04/13/23 09:00 04/16/23 11:03 Sublimaze IV 150 mcg/hr .Q0M INGA 15 mls/hr Titration Protocol Per Protocol Heparin Sodium/Sodium Chloride 25,000 unit in 500 mls @ 0 mls/hr 04/14/23 13:15 04/16/23 08:47 Heparin Drip IV 0 unit/kg/hr .Q0M INGA 0 mls/hr Titration Protocol Per Protocol Lactulose 10 gm 04/14/23 09:00 04/16/23 08:55 Lactulose Oral Liq 20 Gm/30 Ml Udc PO Not Given DAILY INGA Methylprednisolone Sodium Succinate 60 mg 04/15/23 12:50 04/16/23 13:41 Methylprednisolone Sod Succ 125 Mg/2 Ml Inj IVP 60 mg Q12H INGA Administration Nystatin 1 applic 04/14/23 09:00 04/16/23 09:32 Nystatin Powder 15 Gm Btl TOPICAL 1 applic BID INGA Administration Pantoprazole Sodium 40 mg 04/12/23 22:52 04/15/23 23:00 Pantoprazole 40 Mg Sdv IVP 40 mg Q24H INGA Administration PFSH Acute 2 PFSH: Medical History TITI (acute kidney injury) Lymphedema Neuropathy HTN (hypertension) Obesity Surgical History Hx of tonsillectomy H/O hernia repair Hx of cholecystectomy Hx of appendectomy Social History Smoking and tobacco/nicotine status: never used tobacco/nicotine Alcohol intake: current Alcohol intake frequency: holidays/special occasions only Substance/Drug Use: never Vitals/I&O/Wt Last Vital Signs Temp 98.1 F 04/16/23 05:00 Pulse 70 04/16/23 12:30 Resp 18 04/16/23 14:05 BP 126/75 04/16/23 12:30 Pulse Ox 87 L 04/16/23 14:05 O2 Del Method Mechanical Ventilation 04/16/23 11:10 FiO2 100 04/16/23 14:05 04/16/23 04/16/23 04/16/23 06:59 14:59 22:59 Intake Total 1052.789 / 3208.389 966.662 / 966.662 Output Total 550 / 3200 1200 / 1200 Balance 502.789 / 8.389 -233.338 / -233.338 Weight last 48 hrs Weight 518 lb 5 oz Weight 518 lb 5 oz Weight 542 lb Weight 542 lb Physical Exam 2 Narrative: PHYSICAL EXAM: General: lying in bed, sedated and intubated. HEENT:NCAT, PERRLA, EOMI Neck: Supple Lungs: Bilateral diffuse crackles Heart: s1/s2, RRR Abd: soft, NT, ND, BS + Normoactive Extremities: No edema ASSISTANT PROFESSOR OF CHEMISTRY: sedated and limited ASSISTANT PROFESSOR OF CHEMISTRY exam possible. SKIN: no rash Urinary Catheter Management: Kothari: Cath Placed During This Visit: yes Reason for Continuing Indwelling Catheter: Accurate Measurement of Urinary Output in Critically Ill Patients Urinary Catheter Date of Insertion: 04/13/23 Urinary Catheter Time of Insertion: 20:00 Data 04/17/23 03:37 04/17/23 03:37 Other Labs: Radiology Impressions Chest X-Ray 04/16/23 20:00 IMPRESSION: 1. Mildly worsening interstitial prominence suggesting worsening pulmonary edema. 2. No other significant change compared to 3:00 p.m.. Laboratory Results WBC 7.20 10^3/uL (3.29-11.43) 04/17/23 03:37 RBC 4.69 10^6/uL (3.85-5.65) 04/17/23 03:37 Hgb 12.90 g/dL (11.27-16.99) 04/17/23 03:37 Hct 41.1 % (37-53) 04/17/23 03:37 MCV 87.6 fl (82-101) 04/17/23 03:37 MCH 27.5 pg (27-33) 04/17/23 03:37 MCHC 31.4 g/dL (30-55) 04/17/23 03:37 RDW 15.4 % (12.1-15.1) H 04/17/23 03:37 Plt Count 257 10^3/cmm (157-399) 04/17/23 03:37 MPV 10.1 fL (7.4-10.4) 04/17/23 03:37 Neut % (Auto) 84.8 % 04/17/23 03:37 Lymph % (Auto) 5.4 % 04/17/23 03:37 Harlan % (Auto) 9.0 % 04/17/23 03:37 Eos % (Auto) 0.0 % 04/17/23 03:37 Baso % (Auto) 0.1 % 04/17/23 03:37 Neut # (Auto) 6.10 10^3/uL (1.8-7.7) 04/17/23 03:37 Lymph # (Auto) 0.4 10^3/uL (0.8-4.8) L 04/17/23 03:37 [place]lan # (Auto) 0.7 10^3/uL (0.2-0.9) 04/17/23 03:37 Eos # (Auto) 0.0 10^3/uL (0.0-0.8) 04/17/23 03:37 Baso # (Auto) 0.0 10^3/uL (0.0-0.1) 04/17/23 03:37 Nucleated RBC % (auto) 0 % 04/17/23 03:37 Nucleated RBCs # 0.0 /100WBC 04/17/23 03:37 APTT 28.1 SECONDS (23.9-36.7) 04/16/23 12:08 Specimen Type Arterial 04/17/23 04:10 Sample Site Radial, left 04/17/23 04:10 ABG pH 7.41 (7.35-7.45) 04/17/23 04:10 ABG pCO2 59.9 mmHg (35-45) H 04/17/23 04:10 ABG pO2 49.1 mmHg (80.0-100.0) L 04/17/23 04:10 ABG PO2/FiO2 Ratio 0 04/17/23 04:10 ABG HCO3 37.6 mmol/L (22-26) H 04/17/23 04:10 ABG O2 Saturation 85.1 04/14/23 16:09 ABG Base Excess 10.3 mmol/L (-2.0-2.0) H 04/17/23 04:10 Marcos Test Pos 04/17/23 04:10 A-a O2 Gradient 76.9 mmHg (5-10) H 04/14/23 16:09 Hematocrit 45.8 % (42-52) 04/17/23 04:10 Hgb O2 Saturation 84.1 % (95-100) L 04/14/23 16:09 Carboxyhemoglobin 0.7 %THgb (0.4-20.1) 04/14/23 16:09 Methemoglobin 0.5 % (0.4-1.5) 04/14/23 16:09 Total Hemoglobin 14.6 g/dL (14-18) 04/14/23 16:09 Sodium 138.0 mmol/L (131-143) 04/14/23 16:09 Potassium 4.0 mmol/L (3.5-5.0) 04/14/23 16:09 Glucose 115.0 mg/dL (70-115) 04/14/23 16:09 Ionized Calcium 1.1 mmol/L (1.1-1.4) 04/14/23 16:09 O2 Delivery Device Vent 04/17/23 04:10 Mechanical Rate 16.0 04/16/23 03:55 FiO2 100.0 % 04/17/23 04:10 Tidal Volume 0.50 04/17/23 04:10 PEEP 10.0 cmH20 04/17/23 04:10 Sap Basis ID [place] 04/17/23 04:10 Sodium 139 mmol/L (136-145) 04/17/23 03:37 Potassium 4.3 mmol/L (3.5-5.1) 04/17/23 03:37 Chloride 94 mmol/L (98-107) L 04/17/23 03:37 Carbon Dioxide 35 mmol/L (22-29) H 04/17/23 03:37 Anion Gap 14.3 (5-19) 04/17/23 03:37 BUN 32 mg/dL (6-20) H 04/17/23 03:37 Creatinine 1.2 mg/dL (0.7-1.2) 04/17/23 03:37 GFR Calculation 62.6 mL/min (90-130) L 04/17/23 03:37 Glucose 132 mg/dL (65-115) H 04/17/23 03:37 POC Glucose 137 mg/dL (70-110) H 04/17/23 13:13 Calculated Osmolality 297 mOsm/kg (285-295) H 04/17/23 03:37 Lactic Acid 5.0 mmol/L (0.5-2.2) H* 04/12/23 19:25 Lactic Acid (Sepsis) 1.7 mmol/L (0.5-2.2) 04/12/23 22:12 Calcium 8.0 mg/dL (8.5-10.5) L 04/17/23 03:37 Magnesium 2.1 mg/dL (1.7-2.3) 04/12/23 19:25 Total Bilirubin 0.5 mg/dL (0.15-1.2) 04/17/23 03:37 AST 38 U/L (0-40) 04/17/23 03:37 ALT 36 U/L (0-41) 04/17/23 03:37 Alkaline Phosphatase 53 U/L (40-130) 04/17/23 03:37 Creatine Kinase 239 U/L (39-308) 04/15/23 04:13 Troponin T Baseline 47 ng/L (0-15) H 04/12/23 19:25 Troponin T 120 Minute 50.38 ng/L (0-15) H 04/12/23 21:05 Delta Troponin T 3.38 ABS# (0-10) 04/12/23 21:05 Troponin T Hi Sens 6Hr 70.00 ng/L (0-15) H 04/13/23 00:53 Troponin T Hi Sens 6Hr Delta 23.00 ng/L (0-12) H* 04/13/23 00:53 NT-Pro-B Natriuret Pep 5601 pg/mL (0-125) H 04/12/23 19:25 Total Protein 6.4 g/dL (6.6-8.7) L 04/17/23 03:37 Albumin 3.2 g/dL (3.5-5.2) L 04/17/23 03:37 Globulin 3.2 g/dL (1.3-4.6) 04/17/23 03:37 Procalcitonin 0.16 ng/mL (0-0.5) 04/12/23 19:25 TSH 4.86 uIU/mL (0.27-4.20) H 04/12/23 19:25 Free T4 0.93 ng/dL (0.82-1.77) 04/13/23 03:03 Urine Color Yellow (Yellow) 04/12/23 20:01 Urine Appearance Clear (CLEAR) 04/12/23 20:01 Urine pH 5 (5-7) 04/12/23 20:01 Ur Specific [place] 1.025 (1.005-1.030) 04/12/23 20:01 Urine Protein 1+ (Negative) H 04/12/23 20:01 Urine Glucose (UA) Norm (Normal) 04/12/23 20:01 Urine Ketones Negative (Negative) 04/12/23 20:01 Urine Blood Neg (Negative) 04/12/23 20:01 Urine Nitrate Negative (Negative) 04/12/23 20:01 Urine Bilirubin 1+ (Negative) H 04/12/23 20:01 Urine Urobilinogen 1 mg/dL (Negative) H 04/12/23 20:01 Ur Leukocyte Esterase Negative (Negative) 04/12/23 20:01 Urine RBC 0-4 /hpf (0-2) H 04/12/23 20:01 Urine WBC 0-4 /hpf (0-5) H 04/12/23 20:01 Ur Squamous Epith Cells 0-4 /hpf (0-5) H 04/12/23 20:01 Amorphous Sediment Not Reportable 04/12/23 20:01 Urine Bacteria Trace /hpf (NONE) 04/12/23 20:01 Hyaline Casts 10-15 /lpf H 04/12/23 20:01 Fine Granular Casts 0-4 /lpf H 04/12/23 20:01 Urine Mucus 1+ /hpf 04/12/23 20:01 Urine Opiates Screen Negative ng/mL (Negative) 04/12/23 20:01 Ur Barbiturates Screen Negative ng/mL (Negative) 04/12/23 20:01 Ur Phencyclidine Scrn Negative ng/mL (Negative) 04/12/23 20:01 Ur Amphetamines Screen Negative ng/mL (Negative) 04/12/23 20:01 U Benzodiazepines Scrn Negative ng/mL (Negative) 04/12/23 20:01 Urine Cocaine Screen Negative ng/mL (Negative) 04/12/23 20:01 U Marijuana (THC) Screen Negative ng/mL (Negative) 04/12/23 20:01 Coronavirus 229E (PCR) Not detected (NOT DETECT) 04/13/23 08:30 Influenza Type A Ag negative (Negative) 04/12/23 20:35 Influenza Type B Ag negative (Negative) 04/12/23 20:35 SARS-CoV-2 (PCR) Not detected (NOT DETECT) 04/13/23 08:30 SARS-CoV-2 Ag (Rapid) negative (Negative) 04/12/23 20:01 MRSA (PCR) Not detected (NOT DETECTED) 04/13/23 08:30 Micro: Microbiology 04/13/23 05:50 Gram Stain - Final Sputum - Endotracheal Tube Aspirate Sputum Culture - Final A&P Assessment and plan (1) Acute respiratory failure: Acute on chronic respiratory failure in patient with morbid obesity Currently on CMV 550/100/PEEP 14-saturating 88% Qualifiers: Respiratory failure complication: hypoxia and hypercapnia Qualified Code(s): J96.01 - Acute respiratory failure with hypoxia; J96.02 - Acute respiratory failure with hypercapnia (2) Pneumothorax: Morbidly obese patient on ventilator-with significant chest wall compliance-he was placed on high PEEP 14-16 Today morning chest x-ray showed small left apical pneumothorax Reduce the PEEP to 10 and monitor with serial chest x-ray throughout the day Eventually towards the end of the day chest x-ray showed resolution of left apical pneumothorax but showed significant pulmonary edema Qualifiers: Pneumothorax type: spontaneous, primary Qualified Code(s): J93.11 - Primary spontaneous pneumothorax (3) Obesity hypoventilation syndrome: This patient had poor respiratory reserve due to super morbid obesity BMI 75 ABG shows acceptable pH with elevated pCO2 suggestive of chronic hypercapnia He will need higher PEEP's to counteract chest wall complaints-however he developed small left apical pneumothorax and so unable to increase PEEP for now. (4) Non-STEMI (non-ST elevated myocardial infarction): Elevated BNP and troponins concerning for NSTEMI However delta troponin is normal Recommended to hold off heparin Recommended echocardiogram and continue Lasix 40 every 8 Encouraged to keep net negative fluid balance (5) Acute renal failure (ARF): TITI patient presented with creatinine 1.9 Currently creatinine down to 1.2 Qualifiers: Acute renal failure type: unspecified Qualified Code(s): N17.9 - Acute kidney failure, unspecified (6) Goals of care, counseling/discussion: Discussed extensively with the patient's and stepson at bedside about medical condition, management plan and about the poor prognosis. verbalized understanding that we are giving the supportive care with ventilator and treating possible underlying pneumonia as well as using diuretics to treat fluid overload and that we are limited in going up on positive pressures on ventilator given patient's left apical pneumothorax. She requested to continue care as much as possible and wanted patient to be full code. Plan ICU CHECKLIST: Problem list updated Verbal orders reviewed and signed Code Status: Full Disposition: ICU Critically ill: Yes MD discussed with: Hospitalist, RN, RT, family Analgesia: Fentanyl Glycemic Control: N/A Nutrition: TPN-we will hold off to avoid fluid overload Restraint Renewal (within 24 hrs): Yes Ulcer Prophylaxis: PPI Chemical Thromboprophylaxis: Prophylaxis: Heparin Mechanical Thromboprophylaxis: Unfortunately size not available Need for Central line: PICC Need for Kothari catheter: Yes for urine output monitoring Consult Attestations 2 Medical Necessity Statement: Acute hypoxic respiratory failure secondary to fluid overload/ARDS in patient with super morbid obesity on ventilator-need close ICU monitoring Critical Care Time: This patient has a high probability of clinically significant, sudden or life threatening deterioration of the patient's (pulmonary, cardiac, renal, neurological) systems required my full, direct attention, the highest level of physician preparedness for urgent intervention and personal management. I managed/supervised life or organ supporting interventions that required frequent physician assessment. I devoted my full attention in the ICU to the direct care of this patient for the period of time indicated above. Time I spent with family or surrogate(s) is included only if the patient was incapable of providing necessary information or participating in decision making. This time includes the following services provided: Telemetry review Mechanical Ventilation Hemodynamic interpretation, assessment and management Review and interpretation of CXR Review and interpretation of lab values Review and interpretation of microbiologic data and culture results Review of medications and administration Review and interpretation of Nutrition requirements and management Discussion of management with other consultants and services Clinical update to family members [x] Data and vital sign review and interpretation [x] Patient assessment, examination and intervention [x] Documentation [x] Medication orders and management Time spent for teaching as well as performing procedures are billed separately and is not included in this note Critical Care Time (min): 73 Coding Level of Care Code Acute Code for [facility] Fwd Diagnoses Acute respiratory failure J96.01; J96.02 Respiratory failure complication: hypoxia and hypercapnia Primary spontaneous pneumothorax J93.11 Pneumothorax type: spontaneous, primary Obesity hypoventilation syndrome E66.2 Non-STEMI (non-ST elevated myocardial infarction) I21.4 Acute renal failure, unspecified acute renal failure type N17.9 Acute renal failure type: unspecified Goals of care, counseling/discussion Z71.89 Time Spent (min) 73
[2023-04-16 17:05] LABS: Glucose Point of Care 138 mg/dL (70-110)
[2023-04-16] MEDS: fentaNYL 1,000 MCG/100 ML BAG 15 MCG IV (18:12)
[2023-04-16] MEDS: AA-Dex 4.25%-5% w/Lytes 1,000 ML with multivitamin inj 10 ML 22 ML IV (19:09)
--- NOTE | 2023-04-16 19:50 | PC.NURSE ---
Addendum entered by Kiara Quigley RN 04/17/23 06:21: Foot pumps applied @0620 04/17/23. Original Note: SCDs: Large Size SCDs do not fit around lower extremities. Unable to apply. Extra Large SCDs not available.
--- NOTE | 2023-04-16 20:00 | XRR_ITS ---
PROCEDURE INFORMATION: Exam: XR Chest Exam date and time: 04/16/2023 8:07 PM Age: 57 years old Clinical indication: Shortness of breath; Additional info: Evaluate pneumothorax of L. Lung TECHNIQUE: Imaging protocol: Radiologic exam of the chest. Views: 1 view. COMPARISON: CR XR chest 1V portable [id number] 04/16/2023 3:00 PM FINDINGS: Tubes, catheters and devices: Stable endotracheal tube and orogastric tube. Lungs: Worsening interstitial prominence. Mild bibasilar atelectasis. Left retrocardiac opacity not significantly changed. Pleural spaces: Small bilateral pleural effusions. No pneumothorax identified. Heart/Mediastinum: Unchanged cardiomediastinal silhouette with apparent cardiomegaly. Bones/joints: Unremarkable. XR/XR chest 1V portable [id number] IMPRESSION: 1. Mildly worsening interstitial prominence suggesting worsening pulmonary edema. 2. No other significant change compared to 3:00 p.m..
[2023-04-16 20:59] LABS: Glucose Point of Care 159 mg/dL (70-110)
[2023-04-16] MEDS: pantoprazole 40 mg SDV IVP (22:12)
--- NOTE | 2023-04-16 23:02 | PC.NURSE ---
Dr. Tellezr: Dr. Herrera called unit @approximately 2258 to discuss IV fluid intake and sedation. New order for Campos Sedation Scale Level 3. Order to titrate propofol down to 30 and increases Fentanyl if needed.
[2023-04-17] VITALS (108 sets, daily range): BP systolic 110–170; BP diastolic 59–100; PULSE 56–96; RESP 11–22; TEMP 36.4–37.2; O2SAT 76–86
[2023-04-17] MEDS: acetylcysteine 200 mg/mL MDV 10 mL INHALATION ×7 (00:04→23:19)
[2023-04-17] MEDS: ipratropium-albuterol 3 mL Neb INHALATION ×7 (00:04→23:15)
--- NOTE | 2023-04-17 00:19 | PC.NURSE ---
ET Tube: Reassessment at midnight showed ET tube at 23 @ the lip, a change from previous assessment. NORMA Grajeda called. Nicci reports she will be on the unit shortly to reassess.
[2023-04-17] MEDS: fentaNYL 1,000 MCG/100 ML BAG 15 MCG IV ×3 (00:37→23:57)
[2023-04-17] MEDS: methylPREDNISolone sod succ 125 mg/2 mL INJ 60 MG IVP ×2 (00:43→12:55)
[2023-04-17 01:04] LABS: Glucose Point of Care 147 mg/dL (70-110)
[2023-04-17] MEDS: propofol 1,000 MG/100 ML INJ 44.1899999999999977 MG IV ×2 (01:49→04:19)
[2023-04-17] MEDS: chlorhexidine gluconate 4% Btl 118 mL 1 APPLIC TOPICAL (02:21)
--- NOTE | 2023-04-17 02:22 | PC.NURSE ---
Bathing: Partial bath; only front of pt washed. Pt was unable to tolerate turning for a complete bath. During repositioning, SpO2 dropped to 78%, slow recovery back to 84/85% SpO2.
[2023-04-17 03:57] LABS: Basophils % 0.1 %; Hematocrit 41.1 % (37-53); Lymphocytes # 0.4 10^3/uL (0.8-4.8); Lymphocytes % 5.4 %; Mean Corpuscular HGB Conc 31.4 g/dL (30-55); Mean Corpuscular Hemoglobin 27.5 pg (27-33); Mean Corpuscular Volume 87.6 fl (82-101); Mean Platelet Volume 10.1 fL (7.4-10.4); Monocytes # 0.7 10^3/uL (0.2-0.9); Neutrophils % 84.8 %; Nucleated Red Blood Cells % 0 %; Platelet Count 257 10^3/cmm (157-399); Red Blood Count 4.69 10^6/uL (3.85-5.65); Red Cell Distribution Width 15.4 % (12.1-15.1)
[2023-04-17 04:22] LABS: Alanine Aminotransferase 36 U/L (0-41); Albumin Level 3.2 g/dL (3.5-5.2); Alkaline Phosphatase 53 U/L (40-130); Aspartate Amino Transferase 38 U/L (0-40); Blood Urea Nitrogen 32 mg/dL (6-20); Carbon Dioxide 35 mmol/L (22-29); Chloride 94 mmol/L (98-107); Creatinine Clr Calc Pharmacy 135.3539; Globulin 3.2 g/dL (1.3-4.6); Glomerular Filtration Rate 62.6 mL/min (90-130); Glucose 132 mg/dL (65-115); Osmolality Calculated 297 mOsm/kg (285-295); Sodium 139 mmol/L (136-145); Total Bilirubin 0.5 mg/dL (0.15-1.2); Total Protein 6.4 g/dL (6.6-8.7)
[2023-04-17] MEDS: piperacillin-tazobactam 3.375 GM in sodium chloride 0.9% (plus) 50 ML IV ×3 (04:22→20:37)
[2023-04-17 04:24] LABS: Anion Gap 14.3 (5-19); Potassium 4.3 mmol/L (3.5-5.1)
[2023-04-17 04:25] LABS: ABG PCO2 59.9 mmHg (35-45); ABG PH Result 7.41 (7.35-7.45); Arterial Blood Gas Hematocrit 45.8 % (42-52); Base Excess ABG 10.3 mmol/L (-2.0-2.0); Blood Gas Allen Test Pos; Blood Gas Sample Type Arterial; HCO3 ABG 37.6 mmol/L (22-26); PO2 ABG 49.1 mmHg (80.0-100.0)
--- NOTE | 2023-04-17 04:25 | PC.NURSE ---
R. Wrist Bruising: For morning ABG, restraint was taken off the right wrist and significant bruising was noted. 2+ pulse on right. 3+ pulse on left. Previous puncture patricio noted, site is hard to the touch. Image sent to Dr. Yanez via [email or web address] @6124. New order to duplex of R. Arm and to Restrict R. extremity from future sticks.
[2023-04-17 04:27] LABS: Blood Gas Operator Identificat JB; Blood Gas Sample Site Radial, left; Oxygen Device VENT; PO2 FiO2 Ratio Arterial Blood 0
--- NOTE | 2023-04-17 05:02 | USR_ITS ---
PROCEDURE INFORMATION: Exam: US Duplex Right Upper Extremity Veins, Limited Exam date and time: 04/17/2023 12:38 PM Age: 57 years old Clinical indication: Other: Bruising; Additional info: Bruise, firm spot R distal forearm/wrist, assess for dvt TECHNIQUE: Imaging protocol: Real-time duplex ultrasound of the right Upper Extremity with 2-D smith scale, color Doppler flow and spectral waveform analysis with image documentation. Limited exam focused on the right upper extremity veins. COMPARISON: US renal BI* [id number] 04/13/2023 12:18 AM FINDINGS: Right deep veins: Unremarkable. Axillary, brachial, radial and ulnar veins are patent throughout without thrombus. Normal Doppler waveforms. Normal compressibility and/or augmentation response. Visualized internal jugular and subclavian veins are patent. Superficial veins: Cephalic in not interrogated. Visualized basilic vein patent without thrombus. Soft tissues: Unremarkable. [place] [id number] IMPRESSION: No sonographic evidence of deep vein thrombosis.
--- NOTE | 2023-04-17 05:02 | USR_ITS ---
PROCEDURE INFORMATION: Exam: US Right Non-Vascular Joint or Other Extremity Structure Exam date and time: 04/17/2023 12:50 PM Age: 57 years old Clinical indication: Other: Bruising at wrist; Additional info: R wrist/distal forearm, assess for any pseudoaneurysm TECHNIQUE: Imaging protocol: Right US joint or other nonvascular extremity structure or structures. Real-time ultrasound with image documentation. Limited study. Exam focused on the upper extremity in the region of clinical interest. COMPARISON: US thoracentesis [id number] 04/15/2023 8:02 AM FINDINGS: Soft tissues: There is mild soft tissue swelling is along the dorsum of the wrist. No organized collection or soft tissue mass. No pseudoaneurysm identified. US/CV unlisted vascular [id number] IMPRESSION: No organized collection or pseudoaneurysm identified.
[2023-04-17] MEDS: FUROsemide 10 mg/mL SDV 4mL 40 MG IVP (05:45)
[2023-04-17 05:52] LABS: Glucose Point of Care 141 mg/dL (70-110)
--- NOTE | 2023-04-17 05:59 | PC.NURSE ---
TPN Held: Dr. Herrera called unit @7061. Discussed intake/output and vital signs. New order to stop TPN infusion and place order on hold.
[2023-04-17] MEDS: fentaNYL 1,000 MCG/100 ML BAG 12.5 MCG IV (06:07)
--- NOTE | 2023-04-17 06:52 | PC.NURSE ---
Propofol: Martell in pharmacy called @0652 to discuss dosing weight for Propofol. Dosing weight of 245kg does not match current weight. Martell changing dosing weight to match current weight. Weight changed in IV pump @0654. See MAR for titration.
[2023-04-17] MEDS: propofol 1,000 MG/100 ML INJ 34.5 MG IV ×5 (06:54→23:58)
[2023-04-17 09:00] LABS: Glucose Point of Care 119 mg/dL (70-110)
[2023-04-17] MEDS: midazolam hcl 100 MG/100 ML BAG IV (09:14)
[2023-04-17] MEDS: FUROsemide 100 MG in sodium chloride 0.9% 40 ML IV (09:31)
[2023-04-17] MEDS: propofol 1,000 MG/100 ML INJ 41.3999999999999986 MG IV ×2 (09:37→11:52)
[2023-04-17] MEDS: nystatin powder 15 gm Btl 1 APPLIC TOPICAL ×2 (09:38→17:57)
[2023-04-17] MEDS: lactulose oral liq 20 gm/30 mL UDC 10 GM PO (09:38)
[2023-04-17] MEDS: linezolid premix 600 MG/300 ML PREMIX 300 MG IV ×2 (10:48→22:21)
[2023-04-17] MEDS: cisatracurium 100 MG in sodium chloride 0.9% 50 ML 4.13999999999999968 MG IV (11:30)
--- NOTE | 2023-04-17 11:45 | P.PN_ITS ---
Subjective 2 Subjective: Patient was hypoxic on 100% FiO2 with PEEP of 10 we had increased PEEP to 14 At PEEP of 14 he is saturating 78 to 79% Patient was awake was chronic communicated via writing with his family at the bedside Added Versed Increased the dose of fentanyl and propofol Later introduced Nimbex because patient was extremely hypoxic on maximal PEEP and FiO2 Discussed case with Dr. Pfeiffer he is in agreement Added Yong daley Patient seen multiple times IV nutrition on hold secondary to fluid overload Vascular congestion evident on x-ray Vitals/I&O/Wt Last Vital Signs Temp 98.5 F 04/17/23 10:00 Pulse 73 04/17/23 11:08 Resp 16 04/17/23 11:12 BP 161/93 04/17/23 10:00 Pulse Ox 81 L 04/17/23 11:12 O2 Del Method Mechanical Ventilation 04/17/23 11:08 FiO2 100 04/17/23 11:12 04/16/23 04/17/23 04/17/23 22:59 06:59 14:59 Intake Total 660.020 / 6717.912 4726.633 / 2843.315 207.342 / 207.342 Output Total 1150 / 2350 1350 / 3700 500 / 500 Balance -489.980 / -723.318 -133.367 / -856.685 -292.658 / -292.658 Weight last 48 hrs Weight 230.107 kg Weight 235.103 kg Weight 235.103 kg Physical Exam 2 Narrative: Signs of fluid overload present Bilateral breath sounds I did not appreciate any crackles FiO2 100% PEEP 14 Patient is hypoxic Normal hemodynamics Family at the bedside Extremity nonpitting edema Kothari catheter in place Abdomen distended Intertrigo Urinary Catheter Management: Kothari: Cath Placed During This Visit: yes Reason for Continuing Indwelling Catheter: Accurate Measurement of Urinary Output in Critically Ill Patients Urinary Catheter Date of Insertion: 04/13/23 Urinary Catheter Time of Insertion: 20:00 Data 04/17/23 03:37 04/17/23 03:37 A&P Assessment and plan (1) Cardiogenic shock: (2) Non-STEMI (non-ST elevated myocardial infarction): (3) Acute renal failure (ARF): (4) Community acquired pneumonia: Qualifiers: Laterality: unspecified laterality Qualified Code(s): J18.9 - Pneumonia, unspecified organism (5) Acute respiratory failure: Qualifiers: Respiratory failure complication: hypoxia and hypercapnia Qualified Code(s): J96.01 - Acute respiratory failure with hypoxia; J96.02 - Acute respiratory failure with hypercapnia (6) Obesity hypoventilation syndrome: (7) Pneumothorax: (8) Elevated lactic acid level: (9) Elevated brain natriuretic peptide (BNP) level: (10) Intertrigo: Plan Respiratory failure requiring mechanical ventilation Persistent hypoxia PEEP 14 increased from 10, FiO2 100% Did not respond very well to Versed, added Nimbex Spoke with Dr. Pfeiffer he is in agreement Acute CHF exacerbation EF unknown Started Lasix drip today IV nutrition on hold TITI: Resolved Non-STEMI Heparin on hold there was concern for pneumothorax however that has resolved, he is at risk of barotrauma from high PEEP No BM yet Holding aspirin and Plavix for now We might not be able to transfer him with such high PEEP and FiO2 Starting Lasix drip today He will be at risk of barotrauma, pneumothorax, cardiac arrhythmia for persistent hypoxemia This was conveyed pretty frankly to his , she understands all the risks considering guarded prognosis with high risk of mortality morbidity, patient is full code for now, Attestations 2 Medical Necessity Statement*: Continue management Coding Level of Care Code Critical Care >/= 30 minutes Critical care time (in minutes): 35 The high probability of a clinically significant, sudden or life threatening deterioration, as referenced in this documentation, required my full and direct attention, intervention and personal management. The critical care time shown is in addition to time spent performing any reported separately billable procedures and includes the following: [x] Data and vital sign review and interpretation [x ] Patient assessment, examination and intervention [x] Medication orders and management [x] Patient/Family updates as able [x] Care Coordination and Documentation. Diagnoses Cardiogenic shock R57.0 Non-STEMI (non-ST elevated myocardial infarction) I21.4 Acute renal failure (ARF) N17.9 Community acquired pneumonia J18.9 Laterality: unspecified laterality Acute respiratory failure J96.01; J96.02 Respiratory failure complication: hypoxia and hypercapnia Obesity hypoventilation syndrome E66.2 Pneumothorax J93.9 Elevated lactic acid level R79.89 Elevated brain natriuretic peptide (BNP) level R79.89 Intertrigo L30.4
[2023-04-17] MEDS: fentaNYL 1,000 MCG/100 ML BAG 20 MCG IV (11:46)
[2023-04-17 13:16] LABS: Glucose Point of Care 137 mg/dL (70-110)
--- NOTE | 2023-04-17 14:32 | P.PN_ITS ---
Subjective 2 Subjective: -Patient seen at bedside today -Overnight desaturations as being low 80 s -Chest x-ray is showed worsening congest ion with no evidence of pneumothorax -Will increase PEEP to 12 and start danielito ent on Lasix drip -Will hold off TPN and start patient on Versed as well as a paralytic -Updated about poor prognosis to patient 's at bedside Medications: Reviewed: Yes Vitals/I&O/Wt Last Vital Signs Temp 98.5 F 04/17/23 10:00 Pulse 75 04/17/23 14:21 Resp 16 04/17/23 11:12 BP 138/73 04/17/23 14:00 Pulse Ox 79 L 04/17/23 14:00 O2 Del Method Mechanical Ventilation 04/17/23 14:00 FiO2 100 04/17/23 11:12 04/16/23 04/17/23 04/17/23 22:59 06:59 14:59 Intake Total 660.020 / 4016.893 7877.633 / 2843.315 683.280 / 683.280 Output Total 1150 / 2350 1350 / 3700 500 / 500 Balance -489.980 / -723.318 -133.367 / -856.685 183.280 / 183.280 Weight last 48 hrs Weight 507 lb 4.8 oz Weight 518 lb 5 oz Weight 518 lb 5 oz Physical Exam 2 Narrative: PHYSICAL EXAM: General: lying in bed, sedated and intubated. HEENT:NCAT, PERRLA, EOMI Neck: Supple Lungs: Bilateral diffuse crackles Heart: s1/s2, RRR Abd: soft, NT, ND, BS + Normoactive Extremities: No edema SCHOOL LEADER: sedated and limited SCHOOL LEADER exam possible. SKIN: no rash Urinary Catheter Management: Kothari: Cath Placed During This Visit: yes Reason for Continuing Indwelling Catheter: Accurate Measurement of Urinary Output in Critically Ill Patients Urinary Catheter Date of Insertion: 04/13/23 Urinary Catheter Time of Insertion: 20:00 Data 04/17/23 03:37 04/17/23 03:37 Other Labs: Radiology Impressions Chest X-Ray 04/16/23 20:00 IMPRESSION: 1. Mildly worsening interstitial prominence suggesting worsening pulmonary edema. 2. No other significant change compared to 3:00 p.m.. Venous Duplex 04/17/23 05:02 IMPRESSION: No sonographic evidence of deep vein thrombosis. Laboratory Results WBC 7.20 10^3/uL (3.29-11.43) 04/17/23 03:37 RBC 4.69 10^6/uL (3.85-5.65) 04/17/23 03:37 Hgb 12.90 g/dL (11.27-16.99) 04/17/23 03:37 Hct 41.1 % (37-53) 04/17/23 03:37 MCV 87.6 fl (82-101) 04/17/23 03:37 MCH 27.5 pg (27-33) 04/17/23 03:37 MCHC 31.4 g/dL (30-55) 04/17/23 03:37 RDW 15.4 % (12.1-15.1) H 04/17/23 03:37 Plt Count 257 10^3/cmm (157-399) 04/17/23 03:37 MPV 10.1 fL (7.4-10.4) 04/17/23 03:37 Neut % (Auto) 84.8 % 04/17/23 03:37 Lymph % (Auto) 5.4 % 04/17/23 03:37 [place] % (Auto) 9.0 % 04/17/23 03:37 Eos % (Auto) 0.0 % 04/17/23 03:37 Baso % (Auto) 0.1 % 04/17/23 03:37 Neut # (Auto) 6.10 10^3/uL (1.8-7.7) 04/17/23 03:37 Lymph # (Auto) 0.4 10^3/uL (0.8-4.8) L 04/17/23 03:37 [place] # (Auto) 0.7 10^3/uL (0.2-0.9) 04/17/23 03:37 Eos # (Auto) 0.0 10^3/uL (0.0-0.8) 04/17/23 03:37 Baso # (Auto) 0.0 10^3/uL (0.0-0.1) 04/17/23 03:37 Nucleated RBC % (auto) 0 % 04/17/23 03:37 Nucleated RBCs # 0.0 /100WBC 04/17/23 03:37 APTT 28.1 SECONDS (23.9-36.7) 04/16/23 12:08 Specimen Type Arterial 04/17/23 04:10 Sample Site Radial, left 04/17/23 04:10 ABG pH 7.41 (7.35-7.45) 04/17/23 04:10 ABG pCO2 59.9 mmHg (35-45) H 04/17/23 04:10 ABG pO2 49.1 mmHg (80.0-100.0) L 04/17/23 04:10 ABG PO2/FiO2 Ratio 0 04/17/23 04:10 ABG HCO3 37.6 mmol/L (22-26) H 04/17/23 04:10 ABG O2 Saturation 85.1 04/14/23 16:09 ABG Base Excess 10.3 mmol/L (-2.0-2.0) H 04/17/23 04:10 Marcos Test Pos 04/17/23 04:10 A-a O2 Gradient 76.9 mmHg (5-10) H 04/14/23 16:09 Hematocrit 45.8 % (42-52) 04/17/23 04:10 Hgb O2 Saturation 84.1 % (95-100) L 04/14/23 16:09 Carboxyhemoglobin 0.7 %THgb (0.4-20.1) 04/14/23 16:09 Methemoglobin 0.5 % (0.4-1.5) 04/14/23 16:09 Total Hemoglobin 14.6 g/dL (14-18) 04/14/23 16:09 Sodium 138.0 mmol/L (131-143) 04/14/23 16:09 Potassium 4.0 mmol/L (3.5-5.0) 04/14/23 16:09 Glucose 115.0 mg/dL (70-115) 04/14/23 16:09 Ionized Calcium 1.1 mmol/L (1.1-1.4) 04/14/23 16:09 O2 Delivery Device Vent 04/17/23 04:10 Mechanical Rate 16.0 04/16/23 03:55 FiO2 100.0 % 04/17/23 04:10 Tidal Volume 0.50 04/17/23 04:10 PEEP 10.0 cmH20 04/17/23 04:10 Tube Teller ID [place] 04/17/23 04:10 Sodium 139 mmol/L (136-145) 04/17/23 03:37 Potassium 4.3 mmol/L (3.5-5.1) 04/17/23 03:37 Chloride 94 mmol/L (98-107) L 04/17/23 03:37 Carbon Dioxide 35 mmol/L (22-29) H 04/17/23 03:37 Anion Gap 14.3 (5-19) 04/17/23 03:37 BUN 32 mg/dL (6-20) H 04/17/23 03:37 Creatinine 1.2 mg/dL (0.7-1.2) 04/17/23 03:37 GFR Calculation 62.6 mL/min (90-130) L 04/17/23 03:37 Glucose 132 mg/dL (65-115) H 04/17/23 03:37 POC Glucose 137 mg/dL (70-110) H 04/17/23 13:13 Calculated Osmolality 297 mOsm/kg (285-295) H 04/17/23 03:37 Lactic Acid 5.0 mmol/L (0.5-2.2) H* 04/12/23 19:25 Lactic Acid (Sepsis) 1.7 mmol/L (0.5-2.2) 04/12/23 22:12 Calcium 8.0 mg/dL (8.5-10.5) L 04/17/23 03:37 Magnesium 2.1 mg/dL (1.7-2.3) 04/12/23 19:25 Total Bilirubin 0.5 mg/dL (0.15-1.2) 04/17/23 03:37 AST 38 U/L (0-40) 04/17/23 03:37 ALT 36 U/L (0-41) 04/17/23 03:37 Alkaline Phosphatase 53 U/L (40-130) 04/17/23 03:37 Creatine Kinase 239 U/L (39-308) 04/15/23 04:13 Troponin T Baseline 47 ng/L (0-15) H 04/12/23 19:25 Troponin T 120 Minute 50.38 ng/L (0-15) H 04/12/23 21:05 Delta Troponin T 3.38 ABS# (0-10) 04/12/23 21:05 Troponin T Hi Sens 6Hr 70.00 ng/L (0-15) H 04/13/23 00:53 Troponin T Hi Sens 6Hr Delta 23.00 ng/L (0-12) H* 04/13/23 00:53 NT-Pro-B Natriuret Pep 5601 pg/mL (0-125) H 04/12/23 19:25 Total Protein 6.4 g/dL (6.6-8.7) L 04/17/23 03:37 Albumin 3.2 g/dL (3.5-5.2) L 04/17/23 03:37 Globulin 3.2 g/dL (1.3-4.6) 04/17/23 03:37 Procalcitonin 0.16 ng/mL (0-0.5) 04/12/23 19:25 TSH 4.86 uIU/mL (0.27-4.20) H 04/12/23 19:25 Free T4 0.93 ng/dL (0.82-1.77) 04/13/23 03:03 Urine Color Yellow (Yellow) 04/12/23 20:01 Urine Appearance Clear (CLEAR) 04/12/23 20:01 Urine pH 5 (5-7) 04/12/23 20:01 Ur Specific [place] 1.025 (1.005-1.030) 04/12/23 20:01 Urine Protein 1+ (Negative) H 04/12/23 20:01 Urine Glucose (UA) Norm (Normal) 04/12/23 20:01 Urine Ketones Negative (Negative) 04/12/23 20:01 Urine Blood Neg (Negative) 04/12/23 20:01 Urine Nitrate Negative (Negative) 04/12/23 20:01 Urine Bilirubin 1+ (Negative) H 04/12/23 20:01 Urine Urobilinogen 1 mg/dL (Negative) H 04/12/23 20:01 Ur Leukocyte Esterase Negative (Negative) 04/12/23 20:01 Urine RBC 0-4 /hpf (0-2) H 04/12/23 20:01 Urine WBC 0-4 /hpf (0-5) H 04/12/23 20:01 Ur Squamous Epith Cells 0-4 /hpf (0-5) H 04/12/23 20:01 Amorphous Sediment Not Reportable 04/12/23 20:01 Urine Bacteria Trace /hpf (NONE) 04/12/23 20:01 Hyaline Casts 10-15 /lpf H 04/12/23 20:01 Fine Granular Casts 0-4 /lpf H 04/12/23 20:01 Urine Mucus 1+ /hpf 04/12/23 20:01 Urine Opiates Screen Negative ng/mL (Negative) 04/12/23 20:01 Ur Barbiturates Screen Negative ng/mL (Negative) 04/12/23 20:01 Ur Phencyclidine Scrn Negative ng/mL (Negative) 04/12/23 20:01 Ur Amphetamines Screen Negative ng/mL (Negative) 04/12/23 20:01 U Benzodiazepines Scrn Negative ng/mL (Negative) 04/12/23 20:01 Urine Cocaine Screen Negative ng/mL (Negative) 04/12/23 20:01 U Marijuana (THC) Screen Negative ng/mL (Negative) 04/12/23 20:01 Coronavirus 229E (PCR) Not detected (NOT DETECT) 04/13/23 08:30 Influenza Type A Ag negative (Negative) 04/12/23 20:35 Influenza Type B Ag negative (Negative) 04/12/23 20:35 SARS-CoV-2 (PCR) Not detected (NOT DETECT) 04/13/23 08:30 SARS-CoV-2 Ag (Rapid) negative (Negative) 04/12/23 20:01 MRSA (PCR) Not detected (NOT DETECTED) 04/13/23 08:30 A&P Assessment and plan (1) Acute respiratory failure: Acute on chronic respiratory failure in patient with morbid obesity Currently on CMV 550/100/PEEP 10-saturating 79% ABG today morning 7.4 1/59/49/37/85% saturation on CMV 500/10/100% FiO2 Will continue to diurese him to keep net negative Cautiously increase PEEP to 12; his chest x-ray did not show showed resolution of left pneumothorax Qualifiers: Respiratory failure complication: hypoxia and hypercapnia Qualified Code(s): J96.01 - Acute respiratory failure with hypoxia; J96.02 - Acute respiratory failure with hypercapnia (2) Pneumothorax: Morbidly obese patient on ventilator-with significant chest wall compliance-he was placed on high PEEP 14-16 Chest x-ray 04/16/2023 showed small left apical pneumothorax-reduced PEEP to 10 and monitor with serial chest x-ray throughout the day-eventually towards the end of the day chest x-ray showed resolution of left apical pneumothorax but showed significant pulmonary edema Qualifiers: Pneumothorax type: spontaneous, primary Qualified Code(s): J93.11 - Primary spontaneous pneumothorax (3) Obesity hypoventilation syndrome: This patient had poor respiratory reserve due to super morbid obesity BMI 75 ABG shows acceptable pH with elevated pCO2 suggestive of chronic hypercapnia He will need higher PEEP's to counteract chest wall complaints-however he developed small left apical pneumothorax and however it is resolved now. Will cautiously increase PEEP. (4) Non-STEMI (non-ST elevated myocardial infarction): Elevated BNP and troponins concerning for NSTEMI However delta troponin is normal Recommended to hold off heparin Bedside echocardiogram did not show good ultrasonic views given his extensive pulmonary edema as well as body habitus Will DC Lasix every 8 and start him on Lasix drip Encouraged to keep net negative fluid balance (5) Acute renal failure (ARF): TITI patient presented with creatinine 1.9 Currently creatinine down to 1.2 As we increase Lasix to drip-monitor renal parameters Qualifiers: Acute renal failure type: unspecified Qualified Code(s): N17.9 - Acute kidney failure, unspecified (6) Goals of care, counseling/discussion: Discussed extensively with the patient's and stepson at bedside about medical condition, management plan and about the poor prognosis. verbalized understanding that we are giving the supportive care with ventilator and treating possible underlying pneumonia as well as using diuretics to treat fluid overload and that we are limited in going up on positive pressures on ventilator given patient's left apical pneumothorax. She requested to continue care as much as possible and wanted patient to be full code. Plan ICU CHECKLIST: Problem list updated Verbal orders reviewed and signed Code Status: Full Disposition: ICU Critically ill: Yes MD discussed with: Hospitalist, RN, RT, family Analgesia: Fentanyl Glycemic Control: N/A Nutrition: TPN-we will hold off to avoid fluid overload Restraint Renewal (within 24 hrs): Yes Ulcer Prophylaxis: PPI Chemical Thromboprophylaxis: Prophylaxis: Heparin Mechanical Thromboprophylaxis: Unfortunately size not available Need for Central line: PICC Need for Kothari catheter: Yes for urine output monitoring Attestations 2 Medical Necessity Statement*: Will continue care in ICU for close monitoring as patient is intubated for acute on chronic hypoxic/hypercapnic respiratory failure secondary to fluid overload Critical Care Time: This patient has a high probability of clinically significant, sudden or life threatening deterioration of the patient's (pulmonary, cardiac, renal, neurological) systems required my full, direct attention, the highest level of physician preparedness for urgent intervention and personal management. I managed/supervised life or organ supporting interventions that required frequent physician assessment. I devoted my full attention in the ICU to the direct care of this patient for the period of time indicated above. Time I spent with family or surrogate(s) is included only if the patient was incapable of providing necessary information or participating in decision making. This time includes the following services provided: Telemetry review Mechanical Ventilation Hemodynamic interpretation, assessment and management Review and interpretation of CXR Review and interpretation of lab values Review and interpretation of microbiologic data and culture results Review of medications and administration Review and interpretation of Nutrition requirements and management Discussion of management with other consultants and services Clinical update to family members [x] Data and vital sign review and interpretation [x] Patient assessment, examination and intervention [x] Documentation [x] Medication orders and management Time spent for teaching as well as performing procedures are billed separately and is not included in this note Critical Care Time (min): 53 Coding Level of Care Code Acute Code for [facility] Diagnoses Acute respiratory failure J96.01; J96.02 Respiratory failure complication: hypoxia and hypercapnia Primary spontaneous pneumothorax J93.11 Pneumothorax type: spontaneous, primary Obesity hypoventilation syndrome E66.2 Non-STEMI (non-ST elevated myocardial infarction) I21.4 Acute renal failure, unspecified acute renal failure type N17.9 Acute renal failure type: unspecified Goals of care, counseling/discussion Z71.89 Time Spent (min) 53
[2023-04-17] MEDS: FUROsemide 200 MG in sodium chloride 0.9% (100 ml) 80 ML 20 MG IV (14:34)
--- NOTE | 2023-04-17 15:00 | XRR_ITS ---
PROCEDURE INFORMATION: Exam: XR Chest Exam date and time: 04/17/2023 3:22 PM Age: 57 years old Clinical indication: Other: [place] TECHNIQUE: Imaging protocol: Radiologic exam of the chest. Views: 1 view. Other technique: BEDSIDE AP CHEST COMPARISON: CR (CHEST, ) 04/16/2023 8:07 PM FINDINGS: Tubes, catheters and devices: ET and OG tubes and right upper extremity PICC are unchanged. Lungs: Lung volumes are moderate-severely low. Moderate-severe air-space opacities within left lung and mild-moderate air-space opacities at right lower lung have increased. Pleural spaces: No definite pneumothorax. Left costophrenic sulcus is obscured by parenchymal opacities, but associated pleural effusion cannot be excluded entirely. Heart/Mediastinum: Normal. Bones/joints: There is mild right mid thoracic curvature or scoliosis. Mild osteoarthritis of bilateral acromioclavicular joints is present. XR/XR chest 1V portable [id number] IMPRESSION: Increased, moderate-severe air-space opacities within left lung and mild-moderate air-space opacities at right lower lung.
[2023-04-17 17:13] LABS: Glucose Point of Care 123 mg/dL (70-110)
[2023-04-17] MEDS: cisatracurium 100 MG in sodium chloride 0.9% 50 ML 21.3999999999999986 MG IV (17:34)
--- NOTE | 2023-04-17 18:15 | PC.NURSE ---
Shift note: Entire shift patient oxygen saturation below 85%. Dr Bradley aware, Datar aware. Yong daley, Dasha, Versed added this shift in attempts to improve O2. Oral care, restraint checks, and turning performed per protocol. Patient oxygen saturation would drop to low 70's with turning. See additional note with BIS and TOF. Patient and other family members at bedside throughout shift given updates on poor prognosis. Dr Bradley discussed possibility of code blue with patient and family, at this time family would like to remain full code. Redness on bottom is bleachable, patient is on specialized bed and air mat for turning.
--- NOTE | 2023-04-17 18:24 | PC.NURSE ---
BIS and TOF: BIS: 1100-40 1230- 40 1330- 46 1430- 37 1530- 47 1630- 55 1730- 37 1830- 40 TOF: 1100- 4 Nimbex start at 11:30 1230- 4 1330- 4 1430- 3 1530- 2 1630- 2 1730- 3 1830- 2
[2023-04-17 18:43] LABS: Blood Urea Nitrogen 37 mg/dL (6-20); Carbon Dioxide 31 mmol/L (22-29); Chloride 94 mmol/L (98-107); Creatinine Clr Calc Pharmacy 133.4111; Glomerular Filtration Rate 62.6 mL/min (90-130); Glucose 133 mg/dL (65-115); Osmolality Calculated 293 mOsm/kg (285-295); Sodium 136 mmol/L (136-145)
[2023-04-17 18:49] LABS: Anion Gap 15.1 (5-19); Potassium 4.1 mmol/L (3.5-5.1)
[2023-04-17] MEDS: FUROsemide 200 MG in sodium chloride 0.9% (100 ml) 80 ML 10 MG IV (20:05)
[2023-04-17 20:34] LABS: Glucose Point of Care 139 mg/dL (70-110)
[2023-04-17] MEDS: artificial tears Op Oint 3.5 gm 1 APPLIC EYE-BOTH (21:22)
[2023-04-17] MEDS: cisatracurium 100 MG in sodium chloride 0.9% 50 ML 20.7100000000000009 MG IV (22:15)
[2023-04-17] MEDS: pantoprazole 40 mg SDV IVP (22:22)
[2023-04-18] VITALS (107 sets, daily range): BP systolic 115–182; BP diastolic 63–102; PULSE 62–107; RESP 16–18; TEMP 36.9–37.9; O2SAT 80–88
[2023-04-18] MEDS: methylPREDNISolone sod succ 125 mg/2 mL INJ 60 MG IVP ×2 (00:03→12:47)
[2023-04-18 01:01] LABS: Glucose Point of Care 144 mg/dL (70-110)
[2023-04-18 01:55] LABS: Blood Urea Nitrogen 38 mg/dL (6-20); Carbon Dioxide 33 mmol/L (22-29); Chloride 92 mmol/L (98-107); Creatinine Clr Calc Pharmacy 123.1487; Glomerular Filtration Rate 57.1 mL/min (90-130); Glucose 138 mg/dL (65-115); Magnesium 2.3 mg/dL (1.7-2.3); Osmolality Calculated 295 mOsm/kg (285-295); Sodium 137 mmol/L (136-145)
[2023-04-18 01:57] LABS: Anion Gap 16.2 (5-19); Potassium 4.2 mmol/L (3.5-5.1)
--- NOTE | 2023-04-18 02:17 | PC.NURSE ---
Education: Family member at bedside talking loudly to pt, rubbing abdomen, lightly smacking arms and abdomen. RN entered room and family explained they were trying to wake him up because his HR is too low. HR 64. Educated family on purpose of decreased stimulation and that the pts HR is stable at this time. Family was receptive to education.
[2023-04-18] MEDS: propofol 1,000 MG/100 ML INJ 34.5 MG IV (02:33)
[2023-04-18] MEDS: midazolam hcl 100 MG/100 ML BAG IV ×2 (03:09→23:45)
[2023-04-18] MEDS: ipratropium-albuterol 3 mL Neb INHALATION ×6 (03:15→23:44)
[2023-04-18] MEDS: acetylcysteine 200 mg/mL MDV 10 mL INHALATION ×5 (03:15→23:45)
[2023-04-18] MEDS: piperacillin-tazobactam 3.375 GM in sodium chloride 0.9% (plus) 50 ML IV ×3 (04:01→21:03)
[2023-04-18] MEDS: cisatracurium 100 MG in sodium chloride 0.9% 50 ML 17.2600000000000016 MG IV (04:15)
[2023-04-18 04:25] LABS: Basophils % 0.1 %; Eosinophils % 0.2 %; Hematocrit 42.2 % (37-53); Lymphocytes # 0.4 10^3/uL (0.8-4.8); Lymphocytes % 3.9 %; Mean Corpuscular HGB Conc 31.3 g/dL (30-55); Mean Corpuscular Hemoglobin 27.2 pg (27-33); Mean Platelet Volume 9.5 fL (7.4-10.4); Monocytes # 0.9 10^3/uL (0.2-0.9); Monocytes % 9.4 %; Neutrophils # 7.98 10^3/uL (1.8-7.7); Neutrophils % 84.9 %; Nucleated Red Blood Cells % 0 %; Platelet Count 274 10^3/cmm (157-399); Red Blood Count 4.85 10^6/uL (3.85-5.65); Red Cell Distribution Width 15.6 % (12.1-15.1)
[2023-04-18 04:46] LABS: Anion Gap 14.2 (5-19); Blood Urea Nitrogen 38 mg/dL (6-20); Calcium 8.2 mg/dL (8.5-10.5); Carbon Dioxide 36 mmol/L (22-29); Chloride 92 mmol/L (98-107); Creatinine Clr Calc Pharmacy 123.1487; Glomerular Filtration Rate 57.1 mL/min (90-130); Glucose 136 mg/dL (65-115); Osmolality Calculated 297 mOsm/kg (285-295); Potassium 4.2 mmol/L (3.5-5.1); Sodium 138 mmol/L (136-145)
[2023-04-18] MEDS: FUROsemide 200 MG in sodium chloride 0.9% (100 ml) 80 ML 15 MG IV (04:53)
[2023-04-18 05:04] LABS: Glucose Point of Care 144 mg/dL (70-110)
[2023-04-18] MEDS: artificial tears Op Oint 3.5 gm 1 APPLIC EYE-BOTH (06:01)
--- NOTE | 2023-04-18 06:29 | PC.NURSE ---
TO4/Bis: 1918: 02/18 43 2011: 02/18 31 2145: 02/18 47 2303: 38 2337: 02/18 41 0030: 02/18 40 0056: 05/19 42 0127: 05/19 37 0324: 05/19 42 0505: 05/19 30 0558: 03/21 35
--- NOTE | 2023-04-18 06:46 | XRR_ITS ---
PROCEDURE INFORMATION: Exam: XR Chest Exam date and time: 04/18/2023 7:46 AM Age: 57 years old Clinical indication: Dyspnea and shortness of breath; Additional info: Re-evulation of pulmonary edema TECHNIQUE: Imaging protocol: Radiologic exam of the chest. Views: 1 view. COMPARISON: CR (CHEST, ) 04/17/2023 3:22 PM FINDINGS: Tubes, catheters and devices: ET and feeding tubes and right upper extremity PICC are in unchanged positions. Lungs: Bilateral lower lobe consolidations with pleural effusions, larger on the left side, this has improved compared to prior study. Pleural spaces: See Lungs finding. Heart/Mediastinum: Unremarkable. No cardiomegaly. Bones/joints: Unremarkable. XR/XR chest 1V portable [id number] IMPRESSION: Improved left lung aeration. Bilateral lower lobe consolidations with pleural effusions.
[2023-04-18] MEDS: fentaNYL 1,000 MCG/100 ML BAG 15 MCG IV ×4 (06:52→23:33)
[2023-04-18] MEDS: lactulose oral liq 20 gm/30 mL UDC 10 GM PO (09:18)
[2023-04-18] MEDS: nystatin powder 15 gm Btl 1 APPLIC TOPICAL ×2 (09:19→17:59)
[2023-04-18] MEDS: cisatracurium 100 MG in sodium chloride 0.9% 50 ML 20.7100000000000009 MG IV ×3 (09:31→19:37)
--- NOTE | 2023-04-18 09:41 | PC.NURSE ---
Pharmacy contacted about dosing weight change, Patient at 230kg.
[2023-04-18] MEDS: heparin drip 25,000 UNIT/500 ML PREMIX 68.8499999999999943 UNIT IV ×2 (09:42→17:30)
[2023-04-18 10:37] LABS: Glucose Point of Care 130 mg/dL (70-110)
[2023-04-18] MEDS: linezolid premix 600 MG/300 ML PREMIX 300 MG IV ×2 (10:53→22:42)
--- NOTE | 2023-04-18 11:32 | P.PN_ITS ---
Subjective 2 Subjective: -Patient seen at bedside today -Overnight saturations maintained at 80s -On Lasix drip last 24 hours-had 5.2 L u rine output in net -2.6 L; electrolytes are normal creatinine 1.3 -Chest x-ray is showed improvement in he r left lung aeration with no evidence of pneumothorax -Will increase PEEP to 14 -Will hold off TPN -Continue paralytic and sedation -Once saturations at least up to 88%-carol l plan to do bronchoscopy for airway inspection Medications: Reviewed: Yes Vitals/I&O/Wt Last Vital Signs Temp 98.5 F 04/18/23 07:15 Pulse 86 04/18/23 10:30 Resp 16 04/18/23 08:01 BP 141/80 04/18/23 10:30 Pulse Ox 81 L 04/18/23 10:30 O2 Del Method Mechanical Ventilation 04/18/23 10:30 FiO2 100 04/18/23 08:01 04/17/23 04/18/23 04/18/23 22:59 06:59 14:59 Intake Total 700.862 / 5064.565 6634.629 / 2617.288 116.781 / 116.781 Output Total 2525 / 3025 2250 / 5275 Balance -1824.138 / -1511.341 -1146.371 / -2657.712 116.781 / 116.781 Weight last 48 hrs Weight 507 lb 12.8 oz Weight 507 lb 4.8 oz Physical Exam 2 Narrative: PHYSICAL EXAM: General: lying in bed, sedated and intubated. HEENT:NCAT, PERRLA, EOMI Neck: Supple Lungs: Bilateral diffuse crackles Heart: s1/s2, RRR Abd: soft, NT, ND, BS + Normoactive Extremities: No edema [employer]: sedated and limited [employer] exam possible. SKIN: no rash Urinary Catheter Management: Kothari: Cath Placed During This Visit: yes Reason for Continuing Indwelling Catheter: Accurate Measurement of Urinary Output in Critically Ill Patients Urinary Catheter Date of Insertion: 04/13/23 Urinary Catheter Time of Insertion: 20:00 Data 04/18/23 03:45 04/18/23 03:45 Other Labs: Radiology Impressions Vascular Ultrasound 04/17/23 05:02 IMPRESSION: No organized collection or pseudoaneurysm identified. Venous Duplex 04/17/23 05:02 IMPRESSION: No sonographic evidence of deep vein thrombosis. Chest X-Ray 04/18/23 06:46 IMPRESSION: Improved left lung aeration. Bilateral lower lobe consolidations with pleural effusions. Laboratory Results WBC 9.40 10^3/uL (3.29-11.43) 04/18/23 03:45 RBC 4.85 10^6/uL (3.85-5.65) 04/18/23 03:45 Hgb 13.20 g/dL (11.27-16.99) 04/18/23 03:45 Hct 42.2 % (37-53) 04/18/23 03:45 MCV 87.0 fl (82-101) 04/18/23 03:45 MCH 27.2 pg (27-33) 04/18/23 03:45 MCHC 31.3 g/dL (30-55) 04/18/23 03:45 RDW 15.6 % (12.1-15.1) H 04/18/23 03:45 Plt Count 274 10^3/cmm (157-399) 04/18/23 03:45 MPV 9.5 fL (7.4-10.4) 04/18/23 03:45 Neut % (Auto) 84.9 % 04/18/23 03:45 Lymph % (Auto) 3.9 % 04/18/23 03:45 Tyler % (Auto) 9.4 % 04/18/23 03:45 Eos % (Auto) 0.2 % 04/18/23 03:45 Baso % (Auto) 0.1 % 04/18/23 03:45 Neut # (Auto) 7.98 10^3/uL (1.8-7.7) H 04/18/23 03:45 Lymph # (Auto) 0.4 10^3/uL (0.8-4.8) L 04/18/23 03:45 Tyler # (Auto) 0.9 10^3/uL (0.2-0.9) 04/18/23 03:45 Eos # (Auto) 0.0 10^3/uL (0.0-0.8) 04/18/23 03:45 Baso # (Auto) 0.0 10^3/uL (0.0-0.1) 04/18/23 03:45 Nucleated RBC % (auto) 0 % 04/18/23 03:45 Nucleated RBCs # 0.0 /100WBC 04/18/23 03:45 APTT 28.1 SECONDS (23.9-36.7) 04/16/23 12:08 Specimen Type Arterial 04/17/23 04:10 Sample Site Radial, left 04/17/23 04:10 ABG pH 7.41 (7.35-7.45) 04/17/23 04:10 ABG pCO2 59.9 mmHg (35-45) H 04/17/23 04:10 ABG pO2 49.1 mmHg (80.0-100.0) L 04/17/23 04:10 ABG PO2/FiO2 Ratio 0 04/17/23 04:10 ABG HCO3 37.6 mmol/L (22-26) H 04/17/23 04:10 ABG O2 Saturation 85.1 04/14/23 16:09 ABG Base Excess 10.3 mmol/L (-2.0-2.0) H 04/17/23 04:10 Marcos Test Pos 04/17/23 04:10 A-a O2 Gradient 76.9 mmHg (5-10) H 04/14/23 16:09 Hematocrit 45.8 % (42-52) 04/17/23 04:10 Hgb O2 Saturation 84.1 % (95-100) L 04/14/23 16:09 Carboxyhemoglobin 0.7 %THgb (0.4-20.1) 04/14/23 16:09 Methemoglobin 0.5 % (0.4-1.5) 04/14/23 16:09 Total Hemoglobin 14.6 g/dL (14-18) 04/14/23 16:09 Sodium 138.0 mmol/L (131-143) 04/14/23 16:09 Potassium 4.0 mmol/L (3.5-5.0) 04/14/23 16:09 Glucose 115.0 mg/dL (70-115) 04/14/23 16:09 Ionized Calcium 1.1 mmol/L (1.1-1.4) 04/14/23 16:09 O2 Delivery Device Vent 04/17/23 04:10 Mechanical Rate 16.0 04/16/23 03:55 FiO2 100.0 % 04/17/23 04:10 Tidal Volume 0.50 04/17/23 04:10 PEEP 10.0 cmH20 04/17/23 04:10 [place] Supervisor ID [place] 04/17/23 04:10 Sodium 138 mmol/L (136-145) 04/18/23 03:45 Potassium 4.2 mmol/L (3.5-5.1) 04/18/23 03:45 Chloride 92 mmol/L (98-107) L 04/18/23 03:45 Carbon Dioxide 36 mmol/L (22-29) H 04/18/23 03:45 Anion Gap 14.2 (5-19) 04/18/23 03:45 BUN 38 mg/dL (6-20) H 04/18/23 03:45 Creatinine 1.3 mg/dL (0.7-1.2) H 04/18/23 03:45 GFR Calculation 57.1 mL/min (90-130) L 04/18/23 03:45 Glucose 136 mg/dL (65-115) H 04/18/23 03:45 POC Glucose 130 mg/dL (70-110) H 04/18/23 10:35 Calculated Osmolality 297 mOsm/kg (285-295) H 04/18/23 03:45 Lactic Acid 5.0 mmol/L (0.5-2.2) H* 04/12/23 19:25 Lactic Acid (Sepsis) 1.7 mmol/L (0.5-2.2) 04/12/23 22:12 Calcium 8.2 mg/dL (8.5-10.5) L 04/18/23 03:45 Magnesium 2.3 mg/dL (1.7-2.3) 04/18/23 01:15 Total Bilirubin 0.5 mg/dL (0.15-1.2) 04/17/23 03:37 AST 38 U/L (0-40) 04/17/23 03:37 ALT 36 U/L (0-41) 04/17/23 03:37 Alkaline Phosphatase 53 U/L (40-130) 04/17/23 03:37 Creatine Kinase 239 U/L (39-308) 04/15/23 04:13 Troponin T Baseline 47 ng/L (0-15) H 04/12/23 19:25 Troponin T 120 Minute 50.38 ng/L (0-15) H 04/12/23 21:05 Delta Troponin T 3.38 ABS# (0-10) 04/12/23 21:05 Troponin T Hi Sens 6Hr 70.00 ng/L (0-15) H 04/13/23 00:53 Troponin T Hi Sens 6Hr Delta 23.00 ng/L (0-12) H* 04/13/23 00:53 NT-Pro-B Natriuret Pep 5601 pg/mL (0-125) H 04/12/23 19:25 Total Protein 6.4 g/dL (6.6-8.7) L 04/17/23 03:37 Albumin 3.2 g/dL (3.5-5.2) L 04/17/23 03:37 Globulin 3.2 g/dL (1.3-4.6) 04/17/23 03:37 Procalcitonin 0.16 ng/mL (0-0.5) 04/12/23 19:25 TSH 4.86 uIU/mL (0.27-4.20) H 04/12/23 19:25 Free T4 0.93 ng/dL (0.82-1.77) 04/13/23 03:03 Urine Color Yellow (Yellow) 04/12/23 20:01 Urine Appearance Clear (CLEAR) 04/12/23 20:01 Urine pH 5 (5-7) 04/12/23 20:01 Ur Specific [place] 1.025 (1.005-1.030) 04/12/23 20:01 Urine Protein 1+ (Negative) H 04/12/23 20:01 Urine Glucose (UA) Norm (Normal) 04/12/23 20:01 Urine Ketones Negative (Negative) 04/12/23 20:01 Urine Blood Neg (Negative) 04/12/23 20:01 Urine Nitrate Negative (Negative) 04/12/23 20:01 Urine Bilirubin 1+ (Negative) H 04/12/23 20:01 Urine Urobilinogen 1 mg/dL (Negative) H 04/12/23 20:01 Ur Leukocyte Esterase Negative (Negative) 04/12/23 20:01 Urine RBC 0-4 /hpf (0-2) H 04/12/23 20:01 Urine WBC 0-4 /hpf (0-5) H 04/12/23 20:01 Ur Squamous Epith Cells 0-4 /hpf (0-5) H 04/12/23 20:01 Amorphous Sediment Not Reportable 04/12/23 20:01 Urine Bacteria Trace /hpf (NONE) 04/12/23 20:01 Hyaline Casts 10-15 /lpf H 04/12/23 20:01 Fine Granular Casts 0-4 /lpf H 04/12/23 20:01 Urine Mucus 1+ /hpf 04/12/23 20:01 Urine Opiates Screen Negative ng/mL (Negative) 04/12/23 20:01 Ur Barbiturates Screen Negative ng/mL (Negative) 04/12/23 20:01 Ur Phencyclidine Scrn Negative ng/mL (Negative) 04/12/23 20:01 Ur Amphetamines Screen Negative ng/mL (Negative) 04/12/23 20:01 U Benzodiazepines Scrn Negative ng/mL (Negative) 04/12/23 20:01 Urine Cocaine Screen Negative ng/mL (Negative) 04/12/23 20:01 U Marijuana (THC) Screen Negative ng/mL (Negative) 04/12/23 20:01 Coronavirus 229E (PCR) Not detected (NOT DETECT) 04/13/23 08:30 Influenza Type A Ag negative (Negative) 04/12/23 20:35 Influenza Type B Ag negative (Negative) 04/12/23 20:35 SARS-CoV-2 (PCR) Not detected (NOT DETECT) 04/13/23 08:30 SARS-CoV-2 Ag (Rapid) negative (Negative) 04/12/23 20:01 MRSA (PCR) Not detected (NOT DETECTED) 04/13/23 08:30 Micro: Microbiology 04/12/23 21:05 Blood Culture - Final Blood NO GROWTH AFTER 5 DAYS 04/12/23 21:05 Blood Culture - Final Blood NO GROWTH AFTER 5 DAYS A&P Assessment and plan (1) Acute respiratory failure: Acute on chronic respiratory failure in patient with morbid obesity Currently on CMV 550/100/PEEP 10-saturating 81% ABG yesterday morning 7.4 1/59/49/37/85% saturation on CMV 500/12/100% FiO2-will repeat ABG -On Lasix drip last 24 hours-had 5.2 L urine output in net -2.6 L; electrolytes are normal creatinine 1.3 --Chest x-ray is showed improvement in her left lung aeration with no evidence of pneumothorax; cautiously increase PEEP to 14; Qualifiers: Respiratory failure complication: hypoxia and hypercapnia Qualified Code(s): J96.01 - Acute respiratory failure with hypoxia; J96.02 - Acute respiratory failure with hypercapnia (2) Pneumothorax: Morbidly obese patient on ventilator-with significant chest wall compliance-he was placed on high PEEP 14-16 Chest x-ray 04/16/2023 showed small left apical pneumothorax-reduced PEEP to 10 and monitor with serial chest x-ray throughout the day-eventually towards the end of the day chest x-ray showed resolution of left apical pneumothorax but showed significant pulmonary edema Qualifiers: Pneumothorax type: spontaneous, primary Qualified Code(s): J93.11 - Primary spontaneous pneumothorax (3) Obesity hypoventilation syndrome: This patient had poor respiratory reserve due to super morbid obesity BMI 75 ABG shows acceptable pH with elevated pCO2 suggestive of chronic hypercapnia He will need higher PEEP's to counteract chest wall complaints-however he developed small left apical pneumothorax and however it is resolved now. Will cautiously increase PEEP. (4) Non-STEMI (non-ST elevated myocardial infarction): Elevated BNP and troponins concerning for NSTEMI However delta troponin is normal Currently on heparin Bedside echocardiogram did not show good ultrasonic views given his extensive pulmonary edema as well as body habitus Will continue Lasix drip Encouraged to keep net negative fluid balance (5) Acute renal failure (ARF): TITI patient presented with creatinine 1.9 Currently creatinine at 1.3 Currently on Lasix drip-monitor renal parameters Qualifiers: Acute renal failure type: unspecified Qualified Code(s): N17.9 - Acute kidney failure, unspecified (6) Goals of care, counseling/discussion: Discussed extensively with the patient's and stepson at bedside about medical condition, management plan and about the poor prognosis. verbalized understanding that we are giving the supportive care with ventilator and treating possible underlying pneumonia as well as using diuretics to treat fluid overload and that we are limited in going up on positive pressures on ventilator given patient's left apical pneumothorax. She requested to continue care as much as possible and wanted patient to be full code. Plan ICU CHECKLIST: Problem list updated Verbal orders reviewed and signed Code Status: Full Disposition: ICU Critically ill: Yes MD discussed with: Hospitalist, RN, RT, family Analgesia: Fentanyl Glycemic Control: N/A Nutrition: TPN-we will hold off to avoid fluid overload Restraint Renewal (within 24 hrs): Yes Ulcer Prophylaxis: PPI Chemical Thromboprophylaxis: Prophylaxis: Heparin Mechanical Thromboprophylaxis: Unfortunately size not available Need for Central line: PICC Need for Kothari catheter: Yes for urine output monitoring Attestations 2 Medical Necessity Statement*: Will continue care in ICU for close monitoring as patient is intubated for acute on chronic hypoxic/hypercapnic respiratory failure secondary to fluid overload Critical Care Time: This patient has a high probability of clinically significant, sudden or life threatening deterioration of the patient's (pulmonary, cardiac, renal, neurological) systems required my full, direct attention, the highest level of physician preparedness for urgent intervention and personal management. I managed/supervised life or organ supporting interventions that required frequent physician assessment. I devoted my full attention in the ICU to the direct care of this patient for the period of time indicated above. Time I spent with family or surrogate(s) is included only if the patient was incapable of providing necessary information or participating in decision making. This time includes the following services provided: Telemetry review Mechanical Ventilation Hemodynamic interpretation, assessment and management Review and interpretation of CXR Review and interpretation of lab values Review and interpretation of microbiologic data and culture results Review of medications and administration Review and interpretation of Nutrition requirements and management Discussion of management with other consultants and services Clinical update to family members [x] Data and vital sign review and interpretation [x] Patient assessment, examination and intervention [x] Documentation [x] Medication orders and management Time spent for teaching as well as performing procedures are billed separately and is not included in this note Critical Care Time (min): 49 Coding Level of Care Code Acute Code for [facility] Fwd Diagnoses Acute respiratory failure J96.01; J96.02 Respiratory failure complication: hypoxia and hypercapnia Primary spontaneous pneumothorax J93.11 Pneumothorax type: spontaneous, primary Obesity hypoventilation syndrome E66.2 Non-STEMI (non-ST elevated myocardial infarction) I21.4 Acute renal failure, unspecified acute renal failure type N17.9 Acute renal failure type: unspecified Goals of care, counseling/discussion Z71.89 Time Spent (min) 49
--- NOTE | 2023-04-18 12:01 | P.PN_ITS ---
Subjective 2 Subjective: Held Lasix for alkalosis Given acetazolamide Changed to IV Lasix And twice a days of mentation and potassium No fever Check MRSA nares if negative discontinue linezolid PPN on hold Creatinine worsened to 1.3 Chest x-ray showing improved aeration Significant output overnight Started heparin, stop Lasix drip, given IV Lasix along acetazolamide, increased PEEP Spoke with Dr. Pfeiffer He recommended IV Lasix every 8 hours Vitals/I&O/Wt Last Vital Signs Temp 98.5 F 04/18/23 07:15 Pulse 82 04/18/23 11:32 Resp 16 04/18/23 11:34 BP 141/80 04/18/23 10:30 Pulse Ox 81 L 04/18/23 11:34 O2 Del Method Mechanical Ventilation 04/18/23 11:32 FiO2 100 04/18/23 11:34 04/17/23 04/18/23 04/18/23 22:59 06:59 14:59 Intake Total 700.862 / 0302.896 4148.629 / 2617.288 116.781 / 116.781 Output Total 2525 / 3025 2250 / 5275 Balance -1824.138 / -1511.341 -1146.371 / -2657.712 116.781 / 116.781 Weight last 48 hrs Weight 230.334 kg Weight 230.107 kg Physical Exam 2 Narrative: New aneurysm around the wrist Signs of fluid overload Morbid obesity FiO2 100% PEEP increased Lower extremity no signs of cyanosis or ulcer Neuroexam is limited Hemodynamically stable Urinary Catheter Management: Kothari: Cath Placed During This Visit: yes Reason for Continuing Indwelling Catheter: Accurate Measurement of Urinary Output in Critically Ill Patients Urinary Catheter Date of Insertion: 04/13/23 Urinary Catheter Time of Insertion: 20:00 Data 04/18/23 03:45 04/18/23 03:45 Micro: Microbiology 04/12/23 21:05 Blood Culture - Final Blood NO GROWTH AFTER 5 DAYS 04/12/23 21:05 Blood Culture - Final Blood NO GROWTH AFTER 5 DAYS A&P Assessment and plan (1) Goals of care, counseling/discussion: (2) Elevated brain natriuretic peptide (BNP) level: (3) Cardiogenic shock: (4) Non-STEMI (non-ST elevated myocardial infarction): (5) Acute renal failure (ARF): Qualifiers: Acute renal failure type: unspecified Qualified Code(s): N17.9 - Acute kidney failure, unspecified (6) Community acquired pneumonia: Qualifiers: Laterality: unspecified laterality Qualified Code(s): J18.9 - Pneumonia, unspecified organism (7) Acute respiratory failure: Qualifiers: Respiratory failure complication: hypoxia and hypercapnia Qualified Code(s): J96.01 - Acute respiratory failure with hypoxia; J96.02 - Acute respiratory failure with hypercapnia (8) Obesity hypoventilation syndrome: (9) Pneumothorax: Qualifiers: Pneumothorax type: spontaneous, primary Qualified Code(s): J93.11 - Primary spontaneous pneumothorax (10) Intertrigo: (11) Elevated lactic acid level: (12) Hypervolemia: Plan Persistent hypervolemia For alkalosis we are holding Lasix drip today Using IV Lasix every 8 hours along potassium supplementation Adequate urine output Cardiorenal TITI Worsening related to overdiuresis Non-STEMI: Continue heparin drip today No plan for chest tube placement Continue aspirin Check MRSA nares, will discontinue linezolid Continue Zosyn No sign of DVT No sign of pseudoaneurysm Family meeting conducted Spoke with route agent goal is to continue Lasix in IV form instead of drip Will likely give him a break from the paralytic agent Nimbex We are not continuing PPN at this point due to persistent hypervolemia Persistent hypoxemia: Anticipating more improvement with diuresis Once oxygen requirement is around 80% will plan for bronchoscopy, will try to transfer him once he is around 60 to 70% FiO2 for coronary angiogram Attestations 2 Medical Necessity Statement*: Continue ICU management Coding Level of Care Code Critical Care >/= 30 minutes Critical care time (in minutes): 35 The high probability of a clinically significant, sudden or life threatening deterioration, as referenced in this documentation, required my full and direct attention, intervention and personal management. The critical care time shown is in addition to time spent performing any reported separately billable procedures and includes the following: [x] Data and vital sign review and interpretation [x ] Patient assessment, examination and intervention [x] Medication orders and management [x] Patient/Family updates as able [x] Care Coordination and Documentation. Diagnoses Goals of care, counseling/discussion Z71.89 Elevated brain natriuretic peptide (BNP) level R79.89 Cardiogenic shock R57.0 Non-STEMI (non-ST elevated myocardial infarction) I21.4 Acute renal failure, unspecified acute renal failure type N17.9 Acute renal failure type: unspecified Community acquired pneumonia J18.9 Laterality: unspecified laterality Acute respiratory failure J96.01; J96.02 Respiratory failure complication: hypoxia and hypercapnia Obesity hypoventilation syndrome E66.2 Primary spontaneous pneumothorax J93.11 Pneumothorax type: spontaneous, primary Intertrigo L30.4 Elevated lactic acid level R79.89 Hypervolemia E87.70
[2023-04-18] MEDS: FUROsemide 10 mg/mL SDV 4mL 40 MG IVP ×2 (12:46→17:59)
[2023-04-18] MEDS: acetaZOLAMIDE 250 mg Tablet PO (12:46)
[2023-04-18] MEDS: lanolin oint 7 gm 1 APPLIC TOPICAL (14:36)
[2023-04-18 16:01] LABS: Glucose Point of Care 118 mg/dL (70-110)
--- NOTE | 2023-04-18 17:22 | PC.NURSE ---
Contacted Lab for ETA on 1600 PTT.
[2023-04-18] MEDS: potassium chloride ER 20 mEq Tablet 40 MEQ PO (17:54)
--- NOTE | 2023-04-18 18:09 | PC.NURSE ---
BIS: 699- 43 0900- 37 1100- 48 1300- 48 1500- 33 1700- 42 TOF: /4 00- 2 0900- 2 1100- 2 1300- 2 1500- 2 1700- 2
[2023-04-18 18:15] LABS: Partial Thromboplastin Time 90.9 SECONDS (23.9-36.7)
[2023-04-18 20:14] LABS: Glucose Point of Care 124 mg/dL (70-110)
--- NOTE | 2023-04-18 20:42 | PC.NURSE ---
Addendum entered by Shalini Burgess RN 04/18/23 20:42: Witnessed NORMA Craig waste 42mL of propofol from pt room at 2041. Original Note: Waste Prop: 42ml Propofol removed from pt room and wasted w/ NORMA Loya @2041.
[2023-04-18] MEDS: pantoprazole 40 mg SDV IVP (22:42)
[2023-04-18 23:44] LABS: Glucose Point of Care 139 mg/dL (70-110)
[2023-04-19] VITALS (107 sets, daily range): BP systolic 110–178; BP diastolic 58–110; PULSE 69–110; RESP 16–25; TEMP 36.9–38.6; O2SAT 76–90
[2023-04-19 00:05] LABS: Partial Thromboplastin Time 25.9 SECONDS (23.9-36.7)
[2023-04-19] MEDS: heparin 5,000 unit/mL INJ 1 mL IV ×3 (00:29→20:59)
[2023-04-19] MEDS: cisatracurium 100 MG in sodium chloride 0.9% 50 ML 20.7100000000000009 MG IV ×2 (00:32→05:26)
[2023-04-19] MEDS: methylPREDNISolone sod succ 125 mg/2 mL INJ 60 MG IVP ×2 (00:35→13:56)
[2023-04-19] MEDS: chlorhexidine gluconate 4% Btl 118 mL 1 APPLIC TOPICAL (03:06)
[2023-04-19] MEDS: ipratropium-albuterol 3 mL Neb INHALATION ×5 (03:31→20:07)
[2023-04-19] MEDS: acetylcysteine 200 mg/mL MDV 10 mL INHALATION ×5 (03:33→20:07)
[2023-04-19] MEDS: FUROsemide 10 mg/mL SDV 4mL 40 MG IVP ×2 (03:41→10:45)
[2023-04-19] MEDS: piperacillin-tazobactam 3.375 GM in sodium chloride 0.9% (plus) 50 ML IV ×3 (03:42→20:41)
[2023-04-19 05:19] LABS: ABG PH Result 7.38 (7.35-7.45); Arterial Blood Gas Hematocrit 52.9 % (42-52); Base Excess ABG 8.4 mmol/L (-2.0-2.0); Blood Gas Allen Test Pos; Blood Gas Operator Identificat JB; Blood Gas Sample Site Radial, left; Blood Gas Sample Type Arterial; HCO3 ABG 36.6 mmol/L (22-26); Oxygen Device VENT; PO2 ABG 54.5 mmHg (80.0-100.0); PO2 FiO2 Ratio Arterial Blood 0
[2023-04-19 05:23] LABS: Glucose Point of Care 129 mg/dL (70-110)
[2023-04-19 05:33] LABS: ABG PCO2 62.5 mmHg (35-45)
[2023-04-19 05:50] LABS: Basophils % 0.2 %; Hematocrit 43.1 % (37-53); Lymphocytes # 0.5 10^3/uL (0.8-4.8); Mean Corpuscular HGB Conc 31.3 g/dL (30-55); Mean Corpuscular Hemoglobin 27.7 pg (27-33); Mean Corpuscular Volume 88.5 fl (82-101); Mean Platelet Volume 9.8 fL (7.4-10.4); Monocytes # 1.6 10^3/uL (0.2-0.9); Monocytes % 12.4 %; Neutrophils # 10.31 10^3/uL (1.8-7.7); Neutrophils % 81.5 %; Nucleated Red Blood Cells % 0 %; Platelet Count 285 10^3/cmm (157-399); Red Blood Count 4.87 10^6/uL (3.85-5.65); Red Cell Distribution Width 15.8 % (12.1-15.1); White Blood Count 12.65 10^3/uL (3.29-11.43)
--- NOTE | 2023-04-19 05:59 | PC.NURSE ---
Bis/TO4: 2030: 28 03/21 2225: 30 04/18 2338: 35 04/18 0145: 40 04/18 0250: 35 05/19 0345: 41 04/18 0543: 29 04/18
[2023-04-19 06:02] LABS: Partial Thromboplastin Time 35.6 SECONDS (23.9-36.7)
[2023-04-19 06:10] LABS: Blood Urea Nitrogen 45 mg/dL (6-20); Calcium 8.2 mg/dL (8.5-10.5); Carbon Dioxide 33 mmol/L (22-29); Chloride 92 mmol/L (98-107); Creatinine Clr Calc Pharmacy 132.7939; Glomerular Filtration Rate 62.6 mL/min (90-130); Glucose 138 mg/dL (65-115); Osmolality Calculated 298 mOsm/kg (285-295); Sodium 137 mmol/L (136-145)
[2023-04-19 06:11] LABS: Creatine Phosphokinase 105 U/L (39-308)
[2023-04-19 06:15] LABS: Anion Gap 16.5 (5-19); Potassium 4.5 mmol/L (3.5-5.1)
[2023-04-19] MEDS: fentaNYL 1,000 MCG/100 ML BAG 15 MCG IV (06:42)
--- NOTE | 2023-04-19 08:07 | XRR_ITS ---
PROCEDURE INFORMATION: Exam: XR Chest Exam date and time: 04/19/2023 8:29 AM Age: 57 years old Clinical indication: Shortness of breath; Additional info: Hypoxia TECHNIQUE: Imaging protocol: Radiologic exam of the chest. Views: 1 view. COMPARISON: CR (CHEST, ) 04/18/2023 7:46 AM FINDINGS: Limitations: Low lung volumes and portable technique. Tubes, catheters and devices: Stable support apparatus. Lungs: Ongoing retrocardiac consolidation/collapse. Slightly increased hazy bilateral pulmonary opacities, likely mild edema. Pleural spaces: Small bilateral pleural effusions. Heart/Mediastinum: Stable cardiomediastinal silhouette. Bones/joints: Unremarkable. XR/XR chest 1V portable [id number] IMPRESSION: Slightly increased pulmonary edema.
[2023-04-19] MEDS: lactulose oral liq 20 gm/30 mL UDC 10 GM PO (08:17)
[2023-04-19] MEDS: potassium chloride ER 20 mEq Tablet 40 MEQ PO ×2 (08:17→17:04)
[2023-04-19] MEDS: nystatin powder 15 gm Btl 1 APPLIC TOPICAL ×2 (08:18→17:04)
[2023-04-19] MEDS: aspirin 81 mg Chew Tablet PO (08:18)
[2023-04-19 08:27] LABS: Glucose Point of Care 146 mg/dL (70-110)
[2023-04-19] MEDS: linezolid premix 600 MG/300 ML PREMIX 300 MG IV ×2 (10:45→23:22)
[2023-04-19] MEDS: FUROsemide 200 MG in sodium chloride 0.9% (100 ml) 80 ML IV (11:03)
--- NOTE | 2023-04-19 11:58 | PC.NURSE ---
Upon arrival at beginning of shift, nurse found SPo2 to be in the mid to low 80's. maintenance mechanic 2nd shift nurse, respiratory therapist, and physician aware. Vent setting are maxed out, receiving 100% FIo2, peep of 14, and patient is paralyzed with nimbex for vent compliance. Current position, right side lying with left side elevated provides best oxygenation for the patient. When Dr nevarez rounded this morning, nurse expressed concern for skin breakdown and pressure injuries on backside. Due to already low oxygen status, inability to provide additional support through the ventilator, and further desaturation when repositioned, nurses have been unable to make significant body position changes for the past 2 days, preventing proper repositioning and assessment. Family made aware of concerns and educated on need to prioritize oxygenation. This nurse been able to make slight position changes so far this morning, but they are likely ineffective.
[2023-04-19 12:03] LABS: Partial Thromboplastin Time 42.2 SECONDS (23.9-36.7)
[2023-04-19 12:05] LABS: Glucose Point of Care 149 mg/dL (70-110)
--- NOTE | 2023-04-19 12:37 | P.PN_ITS ---
Subjective 2 Subjective: Leukocytosis noted Low-grade fever Thick secretions in the endotracheal tube FiO2 100% PEEP 14 Chest x-ray showing vascular congestion worsening This morning we have restarted Lasix drip Bicarb 33 Significant urine output Patient started becoming more hypoxic from O2 saturation of 85% down to 77% when we try to decrease the dose of paralytic agent Vitals/I&O/Wt Last Vital Signs Temp 99.4 F 04/19/23 07:30 Pulse 77 04/19/23 11:45 Resp 20 H 04/19/23 11:21 BP 131/76 04/19/23 11:45 Pulse Ox 83 L 04/19/23 11:45 O2 Del Method Mechanical Ventilation 04/19/23 11:21 FiO2 100 04/19/23 11:21 04/18/23 04/19/23 04/19/23 22:59 06:59 14:59 Intake Total 962.353 / 4290.009 6509.360 / 2742.994 160.378 / 160.378 Output Total 2150 / 2150 1500 / 3650 750 / 750 Balance -1187.647 / -558.366 -348.640 / -907.006 -589.622 / -589.622 Weight last 48 hrs Weight 228.52 kg Weight 230.334 kg Physical Exam 2 Narrative: Morbidly obese male Intubated and sedated FiO2 1% PEEP 14 Bilateral breath sounds with crackles Thick secretions noted in endotracheal tube Sacral area skin tear reported by the nursing staff Lower extremity edema Kothari catheter in place Abdominal pannus and rigors No signs of Malu's gangrene Urinary Catheter Management: Kothari: Cath Placed During This Visit: yes Reason for Continuing Indwelling Catheter: Accurate Measurement of Urinary Output in Critically Ill Patients Urinary Catheter Date of Insertion: 04/13/23 Urinary Catheter Time of Insertion: 20:00 Data 04/19/23 05:39 04/19/23 05:39 A&P Assessment and plan (1) Elevated brain natriuretic peptide (BNP) level: (2) Cardiogenic shock: (3) Non-STEMI (non-ST elevated myocardial infarction): (4) Hypervolemia: (5) Acute renal failure (ARF): Qualifiers: Acute renal failure type: unspecified Qualified Code(s): N17.9 - Acute kidney failure, unspecified (6) Community acquired pneumonia: Qualifiers: Laterality: unspecified laterality Qualified Code(s): J18.9 - Pneumonia, unspecified organism (7) Acute respiratory failure: Qualifiers: Respiratory failure complication: hypoxia and hypercapnia Qualified Code(s): J96.01 - Acute respiratory failure with hypoxia; J96.02 - Acute respiratory failure with hypercapnia (8) Obesity hypoventilation syndrome: (9) Pneumothorax: Qualifiers: Pneumothorax type: spontaneous, primary Qualified Code(s): J93.11 - Primary spontaneous pneumothorax (10) Intertrigo: Plan Respiratory failure requiring mechanical ventilation PEEP 14, no pneumothorax Chest x-ray showing worsening of vascular congestion FiO2 100% Thick secretions noted Leukocytosis with low-grade fever noted Monitor for ventilator associated pneumonia Sister at the bedside stating that remained never would want tracheostomy Congestive heart failure exacerbation Start Lasix drip today Bicarb 33 Potassium normal Cardiorenal TITI: Improving with overdiuresis creatinine worsened, creatinine back to normal when we cut back on Lasix drip yesterday Persistent hypervolemia: No acute indication for dialysis he does show good response to diuretics, If he fails response to diuretics then we may consider ultrafiltration Patient is still unstable to be transferred for higher level of care to requiring high PEEP with FiO2 100% Non-STEMI: Restarted heparin Holding off on PPN Discontinue steroids Continue linezolid and Zosyn MRSA nares is pending Sister at the bedside, family medical doctor, patient is at high risk for mortality morbidity considering persistent hypoxemia with evidence of barotrauma with high PEEP Attestations 2 Medical Necessity Statement*: Continue ICU management Coding Level of Care Code Critical Care >/= 30 minutes Critical care time (in minutes): 35 The high probability of a clinically significant, sudden or life threatening deterioration, as referenced in this documentation, required my full and direct attention, intervention and personal management. The critical care time shown is in addition to time spent performing any reported separately billable procedures and includes the following: [x] Data and vital sign review and interpretation [x ] Patient assessment, examination and intervention [x] Medication orders and management [x] Patient/Family updates as able [x] Care Coordination and Documentation. Diagnoses Elevated brain natriuretic peptide (BNP) level R79.89 Cardiogenic shock R57.0 Non-STEMI (non-ST elevated myocardial infarction) I21.4 Hypervolemia E87.70 Acute renal failure, unspecified acute renal failure type N17.9 Acute renal failure type: unspecified Community acquired pneumonia J18.9 Laterality: unspecified laterality Acute respiratory failure J96.01; J96.02 Respiratory failure complication: hypoxia and hypercapnia Obesity hypoventilation syndrome E66.2 Primary spontaneous pneumothorax J93.11 Pneumothorax type: spontaneous, primary Intertrigo L30.4
--- NOTE | 2023-04-19 13:07 | PC.SOCIAL ---
IMM updated Updated pt's family on IMM. No questions voiced. Provided pt a copy. Initialed, dated, & timed copy in chart.
[2023-04-19] MEDS: fentaNYL 1,000 MCG/100 ML BAG 17.5 MCG IV ×4 (13:11→23:54)
[2023-04-19] MEDS: heparin drip 25,000 UNIT/500 ML PREMIX 36 UNIT IV (13:13)
--- NOTE | 2023-04-19 14:27 | PM.PN ---
Subjective Subjective: -Overnight saturations were up to 88% however today morning then down to low 80s --Any attempt to taper off paralytic-saturation drops into high 70s-started back on paralytic -Will continue same ventilator settings PEEP 14-no evidence of pneumothorax on chest x-ray but there is slight increase pulmonary edema -Patient on Lasix 40 every 8 and Diamox 250-patient is net -4 L and up to -900 cc in last 24 hours -start patient on trickle feeding -Patient has some leukocytosis and low-grade temperature spikes, so far cultures negative,-will recent sputum cultures-he is on Zyvox and Zosyn-I am going to switch to Zosyn to meropenem - Medications: Reviewed: Yes Vitals/I&O/Wt Last Vital Signs Temp 99.4 F 04/19/23 07:30 Pulse 77 04/19/23 11:45 Resp 19 H 04/19/23 12:35 BP 131/76 04/19/23 11:45 Pulse Ox 82 L 04/19/23 12:35 O2 Del Method Mechanical Ventilation 04/19/23 11:21 FiO2 100 04/19/23 12:35 04/18/23 04/19/23 04/19/23 22:59 06:59 14:59 Intake Total 962.353 / 9901.667 9968.360 / 2742.994 302.908 / 302.908 Output Total 2150 / 2150 1500 / 3650 750 / 750 Balance -1187.647 / -558.366 -348.640 / -907.006 -447.092 / -447.092 Weight last 48 hrs Weight 503 lb 12.8 oz Weight 507 lb 12.8 oz Physical Exam Narrative: PHYSICAL EXAM: General: lying in bed, sedated and intubated. HEENT:NCAT, PERRLA, EOMI Neck: Supple Lungs: Bilateral diffuse crackles Heart: s1/s2, RRR Abd: soft, NT, ND, BS + Normoactive Extremities: No edema EDUCATION PROFESSOR: sedated and limited EDUCATION PROFESSOR exam possible. SKIN: no rash Urinary Catheter Management: Kothari: Cath Placed During This Visit: yes Reason for Continuing Indwelling Catheter: Accurate Measurement of Urinary Output in Critically Ill Patients Urinary Catheter Date of Insertion: 04/13/23 Urinary Catheter Time of Insertion: 20:00 Data 04/19/23 05:39 04/19/23 20:40 Other Labs: Radiology Impressions Vascular Ultrasound 04/17/23 05:02 IMPRESSION: No organized collection or pseudoaneurysm identified. Venous Duplex 04/17/23 05:02 IMPRESSION: No sonographic evidence of deep vein thrombosis. Laboratory Results WBC 12.65 10^3/uL (3.29-11.43) H 04/19/23 05:39 RBC 4.87 10^6/uL (3.85-5.65) 04/19/23 05:39 Hgb 13.50 g/dL (11.27-16.99) 04/19/23 05:39 Hct 43.1 % (37-53) 04/19/23 05:39 MCV 88.5 fl (82-101) 04/19/23 05:39 MCH 27.7 pg (27-33) 04/19/23 05:39 MCHC 31.3 g/dL (30-55) 04/19/23 05:39 RDW 15.8 % (12.1-15.1) H 04/19/23 05:39 Plt Count 285 10^3/cmm (157-399) 04/19/23 05:39 MPV 9.8 fL (7.4-10.4) 04/19/23 05:39 Neut % (Auto) 81.5 % 04/19/23 05:39 Lymph % (Auto) 4.0 % 04/19/23 05:39 [place] % (Auto) 12.4 % 04/19/23 05:39 Eos % (Auto) 0.0 % 04/19/23 05:39 Baso % (Auto) 0.2 % 04/19/23 05:39 Neut # (Auto) 10.31 10^3/uL (1.8-7.7) H 04/19/23 05:39 Lymph # (Auto) 0.5 10^3/uL (0.8-4.8) L 04/19/23 05:39 [place] # (Auto) 1.6 10^3/uL (0.2-0.9) H 04/19/23 05:39 Eos # (Auto) 0.0 10^3/uL (0.0-0.8) 04/19/23 05:39 Baso # (Auto) 0.0 10^3/uL (0.0-0.1) 04/19/23 05:39 Nucleated RBC % (auto) 0 % 04/19/23 05:39 Nucleated RBCs # 0.0 /100WBC 04/19/23 05:39 APTT 42.7 SECONDS (23.9-36.7) H 04/19/23 18:10 Specimen Type Arterial 04/19/23 04:30 Sample Site Radial, left 04/19/23 04:30 ABG pH 7.38 (7.35-7.45) 04/19/23 04:30 ABG pCO2 62.5 mmHg (35-45) H* 04/19/23 04:30 ABG pO2 54.5 mmHg (80.0-100.0) L 04/19/23 04:30 ABG PO2/FiO2 Ratio 0 04/19/23 04:30 ABG HCO3 36.6 mmol/L (22-26) H 04/19/23 04:30 ABG O2 Saturation 85.1 04/14/23 16:09 ABG Base Excess 8.4 mmol/L (-2.0-2.0) H 04/19/23 04:30 [place] Test Pos 04/19/23 04:30 A-a O2 Gradient 76.9 mmHg (5-10) H 04/14/23 16:09 Hematocrit 52.9 % (42-52) H 04/19/23 04:30 Hgb O2 Saturation 84.1 % (95-100) L 04/14/23 16:09 Carboxyhemoglobin 0.7 %THgb (0.4-20.1) 04/14/23 16:09 Methemoglobin 0.5 % (0.4-1.5) 04/14/23 16:09 Total Hemoglobin 14.6 g/dL (14-18) 04/14/23 16:09 Sodium 138.0 mmol/L (131-143) 04/14/23 16:09 Potassium 4.0 mmol/L (3.5-5.0) 04/14/23 16:09 Glucose 115.0 mg/dL (70-115) 04/14/23 16:09 Ionized Calcium 1.1 mmol/L (1.1-1.4) 04/14/23 16:09 O2 Delivery Device Vent 04/19/23 04:30 Mechanical Rate 16.0 04/16/23 03:55 FiO2 100.0 % 04/19/23 04:30 Tidal Volume 0.50 04/19/23 04:30 PEEP 14.0 cmH20 04/19/23 04:30 Diesel Technician Mechanic ID [place] 04/19/23 04:30 Sodium 140 mmol/L (136-145) 04/19/23 20:40 Potassium 5.1 mmol/L (3.5-5.1) 04/19/23 20:40 Chloride 95 mmol/L (98-107) L 04/19/23 20:40 Carbon Dioxide 35 mmol/L (22-29) H 04/19/23 20:40 Anion Gap 15.1 (5-19) 04/19/23 20:40 BUN 46 mg/dL (6-20) H 04/19/23 20:40 Creatinine 1.4 mg/dL (0.7-1.2) H 04/19/23 20:40 GFR Calculation 52.4 mL/min (90-130) L 04/19/23 20:40 Glucose 139 mg/dL (65-115) H 04/19/23 20:40 POC Glucose 123 mg/dL (70-110) H 04/19/23 16:38 Calculated Osmolality 304 mOsm/kg (285-295) H 04/19/23 20:40 Lactic Acid 5.0 mmol/L (0.5-2.2) H* 04/12/23 19:25 Lactic Acid (Sepsis) 1.7 mmol/L (0.5-2.2) 04/12/23 22:12 Calcium 8.6 mg/dL (8.5-10.5) 04/19/23 20:40 Magnesium 2.3 mg/dL (1.7-2.3) 04/18/23 01:15 Total Bilirubin 0.5 mg/dL (0.15-1.2) 04/17/23 03:37 AST 38 U/L (0-40) 04/17/23 03:37 ALT 36 U/L (0-41) 04/17/23 03:37 Alkaline Phosphatase 53 U/L (40-130) 04/17/23 03:37 Creatine Kinase 105 U/L (39-308) 04/19/23 05:39 Troponin T Baseline 47 ng/L (0-15) H 04/12/23 19:25 Troponin T 120 Minute 50.38 ng/L (0-15) H 04/12/23 21:05 Delta Troponin T 3.38 ABS# (0-10) 04/12/23 21:05 Troponin T Hi Sens 6Hr 70.00 ng/L (0-15) H 04/13/23 00:53 Troponin T Hi Sens 6Hr Delta 23.00 ng/L (0-12) H* 04/13/23 00:53 NT-Pro-B Natriuret Pep 5601 pg/mL (0-125) H 04/12/23 19:25 Total Protein 6.4 g/dL (6.6-8.7) L 04/17/23 03:37 Albumin 3.2 g/dL (3.5-5.2) L 04/17/23 03:37 Globulin 3.2 g/dL (1.3-4.6) 04/17/23 03:37 Procalcitonin 0.16 ng/mL (0-0.5) 04/12/23 19:25 TSH 4.86 uIU/mL (0.27-4.20) H 04/12/23 19:25 Free T4 0.93 ng/dL (0.82-1.77) 04/13/23 03:03 Urine Color Yellow (Yellow) 04/12/23 20:01 Urine Appearance Clear (CLEAR) 04/12/23 20:01 Urine pH 5 (5-7) 04/12/23 20:01 Ur Specific [place] 1.025 (1.005-1.030) 04/12/23 20:01 Urine Protein 1+ (Negative) H 04/12/23 20:01 Urine Glucose (UA) Norm (Normal) 04/12/23 20:01 Urine Ketones Negative (Negative) 04/12/23 20: Urine Blood Neg (Negative) 04/12/23 20:01 Urine Nitrate Negative (Negative) 04/12/23 20:01 Urine Bilirubin 1+ (Negative) H 04/12/23 20:01 Urine Urobilinogen 1 mg/dL (Negative) H 04/12/23 20:01 Ur Leukocyte Esterase Negative (Negative) 04/12/23 20:01 Urine RBC 0-4 /hpf (0-2) H 04/12/23 20:01 Urine WBC 0-4 /hpf (0-5) H 04/12/23 20:01 Ur Squamous Epith Cells 0-4 /hpf (0-5) H 04/12/23 20:01 Amorphous Sediment Not Reportable 04/12/23 20:01 Urine Bacteria Trace /hpf (NONE) 04/12/23 20:01 Hyaline Casts 10-15 /lpf H 04/12/23 20:01 Fine Granular Casts 0-4 /lpf H 04/12/23 20:01 Urine Mucus 1+ /hpf 04/12/23 20:01 Urine Opiates Screen Negative ng/mL (Negative) 04/12/23 20:01 Ur Barbiturates Screen Negative ng/mL (Negative) 04/12/23 20:01 Ur Phencyclidine Scrn Negative ng/mL (Negative) 04/12/23 20:01 Ur Amphetamines Screen Negative ng/mL (Negative) 04/12/23 20:01 U Benzodiazepines Scrn Negative ng/mL (Negative) 04/12/23 20:01 Urine Cocaine Screen Negative ng/mL (Negative) 04/12/23 20:01 U Marijuana (THC) Screen Negative ng/mL (Negative) 04/12/23 20:01 Coronavirus 229E (PCR) Not detected (NOT DETECT) 04/13/23 08:30 Influenza Type A Ag negative (Negative) 04/12/23 20:35 Influenza Type B Ag negative (Negative) 04/12/23 20:35 SARS-CoV-2 (PCR) Not detected (NOT DETECT) 04/13/23 08:30 SARS-CoV-2 Ag (Rapid) negative (Negative) 04/12/23 20:01 MRSA (PCR) Not detected (NOT DETECTED) 04/13/23 08:30 A&P Assessment and plan (1) Acute respiratory failure: Acute on chronic respiratory failure in patient with morbid obesity Currently on CMV 500/100/PEEP 40-saturating 81% ABG 7.3 8/54/36 saturation on CMV 500/14/100% FiO2- -On Lasix 40 every 8 and Diamox-patient had 3.6 L urine output in net - 900 cc; electrolytes are normal creatinine 1.2 --Chest x-ray showed increased vascular congestion-will switch back to Lasix drip and monitor electrolytes Qualifiers: Respiratory failure complication: hypoxia and hypercapnia Qualified Code(s): J96.01 - Acute respiratory failure with hypoxia; J96.02 - Acute respiratory failure with hypercapnia (2) Pneumothorax: Morbidly obese patient on ventilator-with significant chest wall compliance-he was placed on high PEEP 14-16 Chest x-ray 04/16/2023 showed small left apical pneumothorax-reduced PEEP to 10 and monitor with serial chest x-ray throughout the day-eventually towards the end of the day chest x-ray showed resolution of left apical pneumothorax but showed significant pulmonary edema Qualifiers: Pneumothorax type: spontaneous, primary Qualified Code(s): J93.11 - Primary spontaneous pneumothorax (3) Obesity hypoventilation syndrome: This patient had poor respiratory reserve due to super morbid obesity BMI 75 ABG shows acceptable pH with elevated pCO2 suggestive of chronic hypercapnia He will need higher PEEP's to counteract chest wall complaints-however he developed small left apical pneumothorax and however it is resolved now. Will cautiously increase PEEP. (4) Non-STEMI (non-ST elevated myocardial infarction): Elevated BNP and troponins concerning for NSTEMI However delta troponin is normal Currently on heparin Bedside echocardiogram did not show good ultrasonic views given his extensive pulmonary edema as well as body habitus Will continue Lasix drip Encouraged to keep net negative fluid balance (5) Acute renal failure (ARF): TITI patient presented with creatinine 1.9 Currently creatinine at 1.2 Currently on Lasix drip-monitor renal parameters Qualifiers: Acute renal failure type: unspecified Qualified Code(s): N17.9 - Acute kidney failure, unspecified (6) Goals of care, counseling/discussion: Discussed extensively with the patient's and stepson at bedside about medical condition, management plan and about the poor prognosis. verbalized understanding that we are giving the supportive care with ventilator and treating possible underlying pneumonia as well as using diuretics to treat fluid overload and that we are limited in going up on positive pressures on ventilator given patient's left apical pneumothorax. She requested to continue care as much as possible and wanted patient to be full code. Plan ICU CHECKLIST: Problem list updated Verbal orders reviewed and signed Code Status: Full Disposition: ICU Critically ill: Yes MD discussed with: Hospitalist, RN, RT, family Analgesia: Fentanyl Glycemic Control: N/A Nutrition: TPN-we will hold off to avoid fluid overload Restraint Renewal (within 24 hrs): Yes Ulcer Prophylaxis: PPI Chemical Thromboprophylaxis: Prophylaxis: Heparin Mechanical Thromboprophylaxis: Unfortunately size not available Need for Central line: PICC Need for Kothari catheter: Yes for urine output monitoring Attestations Medical Necessity Statement*: Will continue care in ICU for close monitoring as patient is intubated for acute on chronic hypoxic/hypercapnic respiratory failure secondary to fluid overload Critical Care Time: This patient has a high probability of clinically significant, sudden or life threatening deterioration of the patient's (pulmonary, cardiac, renal, neurological) systems required my full, direct attention, the highest level of physician preparedness for urgent intervention and personal management. I managed/supervised life or organ supporting interventions that required frequent physician assessment. I devoted my full attention in the ICU to the direct care of this patient for the period of time indicated above. Time I spent with family or surrogate(s) is included only if the patient was incapable of providing necessary information or participating in decision making. This time includes the following services provided: Telemetry review Mechanical Ventilation Hemodynamic interpretation, assessment and management Review and interpretation of CXR Review and interpretation of lab values Review and interpretation of microbiologic data and culture results Review of medications and administration Review and interpretation of Nutrition requirements and management Discussion of management with other consultants and services Clinical update to family members [x] Data and vital sign review and interpretation [x] Patient assessment, examination and intervention [x] Documentation [x] Medication orders and management Time spent for teaching as well as performing procedures are billed separately and is not included in this note Critical Care Time (min): 46 Coding Level of Care Code Acute Code for [facility] Diagnoses Acute respiratory failure J96.01; J96.02 Respiratory failure complication: hypoxia and hypercapnia Primary spontaneous pneumothorax J93.11 Pneumothorax type: spontaneous, primary Obesity hypoventilation syndrome E66.2 Non-STEMI (non-ST elevated myocardial infarction) I21.4 Acute renal failure, unspecified acute renal failure type N17.9 Acute renal failure type: unspecified Goals of care, counseling/discussion Z71.89 Time Spent (min) 46
[2023-04-19] MEDS: cisatracurium 100 MG in sodium chloride 0.9% 50 ML 6.90000000000000036 MG IV (14:51)
--- NOTE | 2023-04-19 15:41 | PC.NUTR ---
Consult for TF recommendations noted. Recommend consideration of previous nutrition note on 04/15 which stated: If medically appropriate to begin PPN please follow previous RD recs below -AA/Dex (4.25/5%) with standard lytes, added MVI starting at 22 ml/hr and advance 20 ml q8h until goal of 42 ml/hr is obtained. (provides 340 kcals and 43g protein/day) If medically appropriate to consider Enteral nutrition via trickle (trophic) feeds please follow previous RD recs below - Vital AF @20 ml/hr x24hrs (provides 576 kcals and 36 g/protein a day) - 120 ml FWF q8
[2023-04-19 16:42] LABS: Glucose Point of Care 123 mg/dL (70-110)
[2023-04-19] MEDS: acetaminophen 325 mg Tablet 650 MG PO (17:04)
--- NOTE | 2023-04-19 18:17 | PC.NURSE ---
Shift Summary: Uneventful day. SPO2 has slowly decreased throughout the day despite 100% FIO2 from the ventilator, nimbex for paralytics, and started a lasix drip. Started day around 83-85% SPO2, currently at 78% spo2. Physicians aware, no further interventions at this time. Total urine output for shift has been 2570mL.
[2023-04-19] MEDS: cisatracurium 100 MG in sodium chloride 0.9% 50 ML 27.6099999999999994 MG IV (18:30)
[2023-04-19 19:15] LABS: Partial Thromboplastin Time 42.7 SECONDS (23.9-36.7)
--- NOTE | 2023-04-19 20:31 | XRR_ITS ---
PROCEDURE INFORMATION: Exam: XR Chest Exam date and time: 04/19/2023 9:56 PM Age: 57 years old Clinical indication: Shortness of breath; Additional info: Decrease 02 saturation TECHNIQUE: Imaging protocol: Radiologic exam of the chest. Views: 1 view. COMPARISON: CR XR chest 1V portable [id number] 04/19/2023 8:29 AM FINDINGS: Limitations: Low lung volume with poor penetration and portable technique. Tubes, catheters and devices: ET tube is in satisfactory position. Lungs: Similar bilateral lower lobe consolidation collapse with hazy opacities. Pleural spaces: Small bilateral pleural effusions. Heart/Mediastinum: Cardiomegaly. Bones/joints: Mild degenerative disease of the bilateral acromioclavicular joints. XR/XR chest 1V portable [id number] IMPRESSION: Similar pulmonary edema.
[2023-04-19] MEDS: midazolam hcl 100 MG/100 ML BAG IV (20:41)
[2023-04-19] MEDS: ketorolac 30 mg/mL INJ 15 MG IVP (20:50)
[2023-04-19 21:12] LABS: Blood Urea Nitrogen 46 mg/dL (6-20); Calcium 8.6 mg/dL (8.5-10.5); Carbon Dioxide 35 mmol/L (22-29); Chloride 95 mmol/L (98-107); Creatinine Clr Calc Pharmacy 113.8233; Glomerular Filtration Rate 52.4 mL/min (90-130); Glucose 139 mg/dL (65-115); Osmolality Calculated 304 mOsm/kg (285-295); Sodium 140 mmol/L (136-145)
[2023-04-19 21:19] LABS: Anion Gap 15.1 (5-19); Potassium 5.1 mmol/L (3.5-5.1)
[2023-04-19] MEDS: meropenem 1,000 MG in sodium chloride 0.9% (plus) 50 ML 100 MG IV (23:31)
[2023-04-19] MEDS: pantoprazole 40 mg SDV IVP (23:31)
[2023-04-19] MEDS: cisatracurium 100 MG in sodium chloride 0.9% 50 ML 13.8100000000000005 MG IV (23:51)
[2023-04-19] MEDS: FUROsemide 200 MG in sodium chloride 0.9% (100 ml) 80 ML 7.5 MG IV (23:54)
[2023-04-20] VITALS (104 sets, daily range): BP systolic 99–166; BP diastolic 60–102; PULSE 82–112; RESP 16–19; TEMP 38.1–39.3; O2SAT 66–91
[2023-04-20] MEDS: ipratropium-albuterol 3 mL Neb INHALATION ×6 (00:39→20:16)
[2023-04-20] MEDS: acetylcysteine 200 mg/mL MDV 10 mL INHALATION ×6 (00:40→20:16)
[2023-04-20] MEDS: methylPREDNISolone sod succ 125 mg/2 mL INJ 60 MG IVP (00:53)
[2023-04-20 03:34] LABS: Basophils # 0.1 10^3/uL (0.0-0.1); Basophils % 0.3 %; Eosinophils % 0.1 %; Hematocrit 45.2 % (37-53); Lymphocytes % 6.9 %; Mean Corpuscular HGB Conc 30.5 g/dL (30-55); Mean Corpuscular Hemoglobin 27.3 pg (27-33); Mean Corpuscular Volume 89.3 fl (82-101); Mean Platelet Volume 10.2 fL (7.4-10.4); Monocytes # 2.2 10^3/uL (0.2-0.9); Monocytes % 14.8 %; Neutrophils # 11.15 10^3/uL (1.8-7.7); Neutrophils % 75.1 %; Nucleated Red Blood Cells % 0 %; Platelet Count 315 10^3/cmm (157-399); Red Blood Count 5.06 10^6/uL (3.85-5.65); Red Cell Distribution Width 15.9 % (12.1-15.1); White Blood Count 14.84 10^3/uL (3.29-11.43)
[2023-04-20] MEDS: heparin drip 25,000 UNIT/500 ML PREMIX 44 UNIT IV (03:52)
[2023-04-20 03:54] LABS: Blood Urea Nitrogen 49 mg/dL (6-20); Calcium 8.8 mg/dL (8.5-10.5); Carbon Dioxide 34 mmol/L (22-29); Chloride 94 mmol/L (98-107); Creatinine Clr Calc Pharmacy 106.2351; Glomerular Filtration Rate 48.4 mL/min (90-130); Glucose 127 mg/dL (65-115); Magnesium 2.6 mg/dL (1.7-2.3); Osmolality Calculated 305 mOsm/kg (285-295); Phosphorus 3.7 mg/dL (2.5-4.5); Sodium 140 mmol/L (136-145)
[2023-04-20 03:55] LABS: Partial Thromboplastin Time 70.6 SECONDS (23.9-36.7)
[2023-04-20 04:00] LABS: Anion Gap 16.8 (5-19); Potassium 4.8 mmol/L (3.5-5.1)
[2023-04-20] MEDS: cisatracurium 100 MG in sodium chloride 0.9% 50 ML 24.1000000000000014 MG IV (04:06)
[2023-04-20] MEDS: meropenem 1,000 MG in sodium chloride 0.9% (plus) 50 ML 100 MG IV ×3 (05:45→22:31)
[2023-04-20] MEDS: fentaNYL 1,000 MCG/100 ML BAG 17.5 MCG IV ×4 (05:45→23:18)
--- NOTE | 2023-04-20 06:00 | XRR_ITS ---
PROCEDURE INFORMATION: Exam: XR Chest Exam date and time: 04/20/2023 7:10 AM Age: 57 years old Clinical indication: Shortness of breath; Patient HX: --f/u intubated; Additional info: Congestion TECHNIQUE: Imaging protocol: Radiologic exam of the chest. Views: 1 view. Total images: 3 COMPARISON: CR XR chest 1V portable [id number] 04/19/2023 9:56 PM FINDINGS: Tubes, catheters and devices: Enteric tube seen entering the stomach with tip not visualized. Endotracheal tube overlies the trachea with the tip 6.0 cm above the merari in satisfactory position. Right-sided PICC tip is appropriately positioned with tip in SVC. Lungs: Pulmonary vascular congestion improved. Stable bilateral pleuroparenchymal disease. Pleural spaces: No pneumothorax. Heart/Mediastinum: Cardiomegaly. Bones/joints: Osseous structures are unchanged from the prior exam. XR/XR chest 1V portable [id number] IMPRESSION: 1. Endotracheal tube overlies the trachea with the tip 6.0 cm above the merari in satisfactory position. 2. Right-sided PICC tip is appropriately positioned with tip in SVC. 3. Cardiomegaly with improved pulmonary vascular congestion. 4. Stable bilateral pleuroparenchymal disease.
[2023-04-20 08:26] LABS: Glucose Point of Care 140 mg/dL (70-110)
[2023-04-20] MEDS: cisatracurium 100 MG in sodium chloride 0.9% 50 ML 27.6099999999999994 MG IV ×3 (08:27→20:37)
[2023-04-20 08:47] LABS: ABG PH Result 7.36 (7.35-7.45); Arterial Blood Gas Hematocrit 44.1 % (42-52); Blood Gas Allen Test Pos; Blood Gas Operator Identificat CAK; Blood Gas Sample Site Radial, left; Blood Gas Sample Type Arterial; HCO3 ABG 37.3 mmol/L (22-26); Oxygen Device VENT; PO2 ABG 46.9 mmHg (80.0-100.0); PO2 FiO2 Ratio Arterial Blood 0
[2023-04-20 08:48] LABS: ABG PCO2 66.1 mmHg (35-45)
[2023-04-20] MEDS: lactulose oral liq 20 gm/30 mL UDC 10 GM PO (09:33)
[2023-04-20] MEDS: potassium chloride ER 20 mEq Tablet 40 MEQ PO ×2 (09:33→18:02)
[2023-04-20] MEDS: acetaminophen 325 mg Tablet 650 MG PO (09:34)
[2023-04-20] MEDS: aspirin 81 mg Chew Tablet PO (09:34)
[2023-04-20] MEDS: nystatin powder 15 gm Btl 1 APPLIC TOPICAL ×2 (09:38→18:02)
--- NOTE | 2023-04-20 10:47 | P.CONIM_ITS ---
Providers/Reason For Consult 2 Consulting Physician/Specialty*: [facility]/Nephrology Reason for Consult*: TTII , volume overload Attending Physician: Som Bradley MD History of Present Illness History of Present Illness Denis Munoz is a 57 year old male patient is a 57-year-old male with past medical history of morbid obesity, hypertension, question CHF was admitted on 04/12/2023 due to acute respiratory failure and hypoxia. Patient got intubated and on 100% FiO2. Was started on broad-spectrum antibiotics in the setting of pulmonary infiltrates bilaterally and also was started on Lasix. Lasix was then switched to Lasix drip. Patient currently receiving Lasix drip with reasonable diuresis about 3 to 4 L urine output. His creatinine was 0.8 at baseline and now is at 1.5. Ejection fraction not known-not able to do echo due to morbid obesity Review of Systems 2 Narrative: 10 full review of system assessment Medications/Allergies Home Medications Medication Instructions Recorded Confirmed Last Taken Type amlodipine 10 mg tablet 10 mg PO DAILY 04/13/23 04/13/23 Unknown History cholecalciferol (vitamin D3) 25 25 mcg PO DAILY 04/13/23 04/13/23 Unknown History mcg (1,000 unit) tablet (Vitamin D3) clonidine HCl 0.1 mg tablet 0.1 mg PO DAILY 04/13/23 04/13/23 Unknown History fluoxetine 20 mg capsule 20 mg PO TID 04/13/23 04/13/23 Unknown History furosemide 20 mg tablet 20 mg PO DAILY 04/13/23 04/13/23 Unknown History gabapentin 300 mg capsule 300 mg PO DAILY 04/13/23 04/13/23 Unknown History lisinopril 40 mg tablet 40 mg PO DAILY 04/13/23 04/13/23 Unknown History metoprolol tartrate 50 mg tablet 50 mg PO DAILY 04/13/23 04/13/23 Unknown History omeprazole 40 mg capsule,delayed 40 mg PO DAILY 04/13/23 04/13/23 Unknown History release ropinirole 2 mg tablet 2 mg PO DAILY 04/13/23 04/13/23 Unknown History rosuvastatin 40 mg tablet 40 mg PO QPM 04/13/23 04/13/23 Unknown History Allergies Allergy/AdvReac Type Severity Reaction Status Date / Time No Known Allergies Allergy Verified 04/12/23 19:33 Current Medications Generic Name Dose Route Start Last Admin Trade Name Freq PRN Reason Stop Dose Admin Acetaminophen 650 mg 04/12/23 22:52 04/20/23 09:34 Acetaminophen 325 Mg Tablet PO 650 mg Q6H PRN Administration Mild/Mod Pain Or Temp >/= 101 Acetylcysteine 200 mg 04/14/23 12:00 04/20/23 07:41 Acetylcysteine 200 Mg/Ml Mdv 10 Ml INHALATION 200 mg Q4H.RESPIRATORY INGA Administration Albuterol/Ipratropium 3 ml 04/14/23 12:00 04/20/23 07:41 Ipratropium-Albuterol 3 Ml Neb INHALATION 3 ml Q4H.RESPIRATORY INGA Administration Artificial Tears 1 applic 04/17/23 09:05 04/18/23 06:01 Artificial Tears Op Oint 3.5 Gm EYE-BOTH 1 applic PRN PRN Administration DRY EYE(S) Aspirin 81 mg 04/15/23 09:00 04/20/23 09:34 Aspirin 81 Mg Chew Tablet PO 81 mg DAILY INGA Administration Chlorhexidine Gluconate 1 applic 04/14/23 23:00 04/19/23 03:06 Chlorhexidine Gluconate 4% Btl 118 Ml TOPICAL 1 applic Q24H INGA Administration Clopidogrel Bisulfate 75 mg 04/14/23 09:00 04/16/23 08:55 Clopidogrel 75 Mg Tablet PO Not Given DAILY INGA Furosemide 40 mg 04/18/23 11:50 04/19/23 10:45 Furosemide 10 Mg/Ml Sdv 4ml IVP 40 mg Q8H INGA Administration Heparin Sodium (Porcine) 0 unit 04/14/23 13:07 04/19/23 20:59 Heparin 5,000 Unit/Ml Inj 1 Ml IV 5,000 unit PRN PRN Administration Heparin weight-base protocol Protocol Linezolid 600 mg in 300 mls @ 300 mls/hr 04/12/23 22:52 04/20/23 00:45 Zyvox Premix IV Infused Q12H INGA Infusion Protocol Propofol 1,000 mg in 100 mls @ 0 mls/hr 04/13/23 04:45 04/18/23 19:00 Diprivan IV Infused .Q0M INGA Titration Protocol Per Protocol norepinephrine 4 mg in 250 mls @ 0 mls/hr 04/13/23 09:00 04/16/23 19:00 Levophed IV Infused .Q0M INGA Titration Protocol Per Protocol Fentanyl 1,000 mcg in 100 mls @ 0 mls/hr 04/13/23 09:00 04/20/23 05:45 Sublimaze IV 175 mcg/hr .Q0M INGA 17.5 mls/hr Administration Protocol Per Protocol Heparin Sodium/Sodium Chloride 25,000 unit in 500 mls @ 0 mls/hr 04/14/23 13:15 04/20/23 03:52 Heparin Drip IV 8.95 unit/kg/hr .Q0M INGA 44 mls/hr Administration Protocol Per Protocol Multivitamins 10 ml/ AA-Dex 4. 1,010 mls @ 0 mls/hr 04/16/23 17:30 04/17/23 07:00 25%-5% w/Lytes IV Infused .Q0M INGA Infusion As Directed Furosemide 100 mg/ Sodium 50 mls @ 0 mls/hr 04/17/23 09:15 04/17/23 15:02 Chloride IV Infused .Q0M INGA Titration Protocol Per Protocol Cisatracurium Besylate 100 mg/ 100 mls @ 0 mls/hr 04/17/23 09:15 04/20/23 08:27 Sodium Chloride IV 2 mcg/kg/min .Q0M INGA 27.61 mls/hr Administration Protocol Per Protocol Midazolam HCl 100 mg in 100 mls @ 0 mls/hr 04/17/23 09:15 04/19/23 20:54 Versed IV 5 mg/hr .Q0M INGA 5 mls/hr Titration Protocol Per Protocol Furosemide 200 mg/ Sodium 100 mls @ 0 mls/hr 04/17/23 14:15 04/19/23 23:54 Chloride IV 15 mg/hr .Q0M INGA 7.5 mls/hr Administration Protocol Per Protocol Meropenem 1,000 mg/ Sodium 50 mls @ 100 mls/hr 04/19/23 22:30 04/20/23 09:40 Chloride IV Infused Q8H INGA Infusion Protocol Lactulose 10 gm 04/14/23 09:00 04/20/23 09:33 Lactulose Oral Liq 20 Gm/30 Ml Udc PO 10 gm DAILY INGA Administration Lanolin 1 applic 04/18/23 13:37 04/18/23 14:36 Lanolin Oint 7 Gm TOPICAL 1 applic PRN PRN Administration DRYNESS Nystatin 1 applic 04/14/23 09:00 04/20/23 09:38 Nystatin Powder 15 Gm Btl TOPICAL 1 applic BID INGA Administration Pantoprazole Sodium 40 mg 04/12/23 22:52 04/19/23 23:31 Pantoprazole 40 Mg Sdv IVP 40 mg Q24H INGA Administration Potassium Chloride 40 meq 04/18/23 18:00 04/20/23 09:33 Potassium Chloride Er 20 Meq Tablet PO 40 meq BID INGA Administration PFSH Acute 2 PFSH: Medical History TITI (acute kidney injury) Lymphedema Neuropathy HTN (hypertension) Obesity Surgical History Hx of tonsillectomy H/O hernia repair Hx of cholecystectomy Hx of appendectomy Social History Smoking and tobacco/nicotine status: never used tobacco/nicotine Alcohol intake: current Alcohol intake frequency: holidays/special occasions only Substance/Drug Use: never Vitals/I&O/Wt Last Vital Signs Temp 102.1 F H 04/20/23 08:30 Pulse 99 04/20/23 09:15 Resp 18 04/20/23 10:32 BP 119/69 04/20/23 09:15 Pulse Ox 75 L 04/20/23 10:32 O2 Del Method Mechanical Ventilation 04/20/23 08:30 FiO2 100 04/20/23 10:32 04/19/23 04/20/23 04/20/23 22:59 06:59 14:59 Intake Total 928.701 / 1233.564 838.201 / 2071.765 150 / 150 Output Total 850 / 2645 1490 / 4135 850 / 850 Balance 78.701 / -1411.436 -651.799 / -2063.235 -700 / -700 Weight last 48 hrs Weight 227.567 kg Weight 228.52 kg Physical Exam 2 Narrative: Intubated and sedated Urinary Catheter Management: Kothari: Cath Placed During This Visit: yes Reason for Continuing Indwelling Catheter: Accurate Measurement of Urinary Output in Critically Ill Patients Urinary Catheter Date of Insertion: 04/13/23 Urinary Catheter Time of Insertion: 20:00 Data 04/20/23 03:09 04/20/23 03:09 Micro: Microbiology 04/19/23 20:44 Blood Culture - Preliminary Blood SPECIMEN COLLECTED 04/19/23 20:40 Blood Culture - Preliminary Blood SPECIMEN COLLECTED A&P Assessment and plan (1) Acute renal failure (ARF): Qualifiers: Acute renal failure type: unspecified Qualified Code(s): N17.9 - Acute kidney failure, unspecified Plan 1. Acute kidney injury in the setting of volume overload/anasarca: Likely cardiorenal etiology, EF not known -Agree with Lasix drip currently will add metolazone via orogastric tube to augment diuresis -Except rising creatinine in the setting of aggressive diuresis -If patient fails to diurese on a bowel regimen will consider dialysis with ultrafiltration. 2. Acute on chronic respiratory failure, intubated sedated, on 100% FiO2 3. Morbid obesity 4. NSTEMI, medical management currently Patient evaluated using audiovisual cart. Time spent 40 minutes Consult Attestations 2 Medical Necessity Statement: per mediicne team Coding Level of Care Code Acute Code for Chg Fwd Diagnoses Acute renal failure, unspecified acute renal failure type N17.9 Acute renal failure type: unspecified
[2023-04-20] MEDS: linezolid premix 600 MG/300 ML PREMIX 300 MG IV ×2 (11:16→22:31)
[2023-04-20 11:27] LABS: Partial Thromboplastin Time 77.1 SECONDS (23.9-36.7)
[2023-04-20 11:44] LABS: Glucose Point of Care 132 mg/dL (70-110)
--- NOTE | 2023-04-20 12:22 | P.PN_ITS ---
Subjective 2 Subjective: Overnight events noted Patient is febrile Blood cultures requested Antibiotics escalated Still requiring 100% FiO2 O2 saturation reported around 90% with better positioning He was repositioned today Dr. Grajeda not planning for ultrafiltration because with ultrafiltration they only take out about 4 L maximum and is already making 5 L with Lasix drip Creatinine worsened Persistent hypervolemia We do not have CRRT Which can take out 250 to 300 mL/h Febrile event today Ventilator associated pneumonia Vitals/I&O/Wt Last Vital Signs Temp 102.7 F H 04/20/23 11:30 Pulse 107 H 04/20/23 11:30 Resp 17 04/20/23 11:30 BP 142/85 04/20/23 11:30 Pulse Ox 79 L 04/20/23 11:30 O2 Del Method Mechanical Ventilation 04/20/23 11:30 FiO2 100 04/20/23 11:30 04/19/23 04/20/23 04/20/23 22:59 06:59 14:59 Intake Total 928.701 / 1233.564 838.201 / 2071.765 373.476 / 373.476 Output Total 850 / 2645 1490 / 4135 850 / 850 Balance 78.701 / -1411.436 -651.799 / -2063.235 -476.524 / -476.524 Weight last 48 hrs Weight 227.567 kg Weight 228.52 kg Physical Exam 2 Narrative: Morbid obese male Intubated and sedated Paralyzed Febrile Hemodynamic stable Currently requiring 100% FiO2 with high PEEP No active signs of pneumothorax Sacral area skin tear Kothari catheter with dilute colored urine Abdominal pannus intertrigo no acute worsening no signs of Malu's gangrene Urinary Catheter Management: Kothari: Cath Placed During This Visit: yes Reason for Continuing Indwelling Catheter: Accurate Measurement of Urinary Output in Critically Ill Patients Urinary Catheter Date of Insertion: 04/13/23 Urinary Catheter Time of Insertion: 20:00 Data 04/20/23 03:09 04/20/23 03:09 Micro: Microbiology 04/19/23 20:44 Blood Culture - Preliminary Blood SPECIMEN COLLECTED 04/19/23 20:40 Blood Culture - Preliminary Blood SPECIMEN COLLECTED A&P Assessment and plan (1) Elevated brain natriuretic peptide (BNP) level: (2) Cardiogenic shock: (3) Non-STEMI (non-ST elevated myocardial infarction): (4) Hypervolemia: (5) Acute renal failure (ARF): Qualifiers: Acute renal failure type: unspecified Qualified Code(s): N17.9 - Acute kidney failure, unspecified (6) Community acquired pneumonia: Qualifiers: Laterality: unspecified laterality Qualified Code(s): J18.9 - Pneumonia, unspecified organism (7) Acute respiratory failure: Qualifiers: Respiratory failure complication: hypoxia and hypercapnia Qualified Code(s): J96.01 - Acute respiratory failure with hypoxia; J96.02 - Acute respiratory failure with hypercapnia (8) Obesity hypoventilation syndrome: (9) Pneumothorax: Qualifiers: Pneumothorax type: spontaneous, primary Qualified Code(s): J93.11 - Primary spontaneous pneumothorax (10) Intertrigo: (11) Ventilator associated pneumonia: Plan Acute hypoxic hypercarbic respiratory failure Ventilator associated pneumonia FiO2 100% PEEP 14 No recurrence of pneumothorax Persistent hypervolemia Consulted nephro No plan for ultrafiltration Patient is making good urine with Lasix drip Plan to continue Lasix drip for next 2 to 3 days as per nephro Watch for worsening of alkalosis Monitor electrolytes Replenish potassium twice daily Ventilator associated pneumonia Antibiotics escalated Sputum culture blood cultures taken Requested UA Sacral area skin tear No sign of Malu's gangrene Febrile events: Creatinine 1.6, we would not be able to repeat the dose of Toradol because of worsening creatinine Rectal Tylenol will be used Cooling blankets, cold sponges Heart failure exacerbation with persistent hypervolemia Plan as above Non-STEMI: Will need investigation at tertiary center Tachycardia is in response to high fever Full code Dr. Sweeney in agreement with continuation of Lasix drip, he has recommended neck repositioning, we advanced endotracheal tube by 2 cm as well Paralytic agent/Nimbex to stay on board Continue monitoring for rhabdo check CPK Attestations 2 Medical Necessity Statement*: Continue ICU management Coding Level of Care Code Critical Care >/= 30 minutes Critical care time (in minutes): 45 The high probability of a clinically significant, sudden or life threatening deterioration, as referenced in this documentation, required my full and direct attention, intervention and personal management. The critical care time shown is in addition to time spent performing any reported separately billable procedures and includes the following: [x] Data and vital sign review and interpretation [x ] Patient assessment, examination and intervention [x] Medication orders and management [x] Patient/Family updates as able [x] Care Coordination and Documentation. Diagnoses Elevated brain natriuretic peptide (BNP) level R79.89 Cardiogenic shock R57.0 Non-STEMI (non-ST elevated myocardial infarction) I21.4 Hypervolemia E87.70 Acute renal failure, unspecified acute renal failure type N17.9 Acute renal failure type: unspecified Community acquired pneumonia J18.9 Laterality: unspecified laterality Acute respiratory failure J96.01; J96.02 Respiratory failure complication: hypoxia and hypercapnia Obesity hypoventilation syndrome E66.2 Primary spontaneous pneumothorax J93.11 Pneumothorax type: spontaneous, primary Intertrigo L30.4 Ventilator associated pneumonia J95.851
--- NOTE | 2023-04-20 12:29 | XR_ITS ---
WS: [id number] ABDOMEN 1 VIEW(S) HISTORY: ileus COMPARISON: None available. This is a nondiagnostic evaluation due to patient's body habitus. There is a nasogastric tube present projecting over the LEFT abdomen. Tip of the tube projects over the ribs but this is probably a high riding stomach. On the recent chest radiograph the NG tube appears in appropriate position. If the NG tube has not been repositioned since 04/20/2023 at 7:12 a.m. the NG tube should be in the sto mach. IMPRESSION: Nondiagnostic evaluation of the abdomen. Cannot exclude abdominal pathology on this exam.
[2023-04-20] MEDS: ketorolac 30 mg/mL INJ 15 MG IVP (14:21)
--- NOTE | 2023-04-20 14:42 | XRR_ITS ---
PROCEDURE INFORMATION: Exam: XR Chest Exam date and time: 04/20/2023 2:51 PM Age: 57 years old Clinical indication: Shortness of breath; Additional info: Hypoxia TECHNIQUE: Imaging protocol: Radiologic exam of the chest. Views: 1 view. Total images: 425 COMPARISON: CR XR chest 1V portable [id number] 04/20/2023 7:10 AM FINDINGS: Tubes, catheters and devices: Endotracheal tube overlies the trachea with the tip 2.5 cm above the merari. Enteric tube seen entering the stomach with tip not visualized. Right PICC extends into SVC with tip not visualized. Lungs: Stable left pleuroparenchymal disease. Interval worsening of right pleuroparenchymal disease. Pleural spaces: No pneumothorax. Heart/Mediastinum: Heart is enlarged but stable when compared to the prior exam. Bones/joints: Unremarkable. XR/XR chest 1V portable [id number] IMPRESSION: 1. Endotracheal tube overlies the trachea with the tip 2.5 cm above the merari. Enteric tube seen entering the stomach with tip not visualized. Right PICC extends into SVC with tip not visualized. 2. Heart is enlarged but stable when compared to the prior exam. 3. Stable left pleuroparenchymal disease. 4. Interval worsening of right pleuroparenchymal disease.
[2023-04-20] MEDS: heparin drip 25,000 UNIT/500 ML PREMIX 40 UNIT IV (16:15)
[2023-04-20 16:34] LABS: Methicillin-Resist S.aureu PCR NOT DETECTED (NOT DETECTED)
[2023-04-20 17:07] LABS: Glucose Point of Care 98 mg/dL (70-110)
[2023-04-20] MEDS: FUROsemide 200 MG in sodium chloride 0.9% (100 ml) 80 ML 7.5 MG IV (17:17)
[2023-04-20] MEDS: midazolam hcl 100 MG/100 ML BAG 6 MG IV (17:27)
[2023-04-20 19:36] LABS: Partial Thromboplastin Time 71.9 SECONDS (23.9-36.7)
--- NOTE | 2023-04-20 19:36 | PC.NURSE ---
Shift SUmmary: Vent settings remain the same. For most of day his saturations were in the mid 70's. Unable to increase support from vent. Patient was able to tolerate complete turns and linen changes. Posterior has generalized redness which is blanchable, but no pressure injuries observed. Skin tear noted to the left shoulder. Now that patient could tolerate position changes without further desaturation, multiple position changes were performed in an attempt to obtain increased oxygen saturations as previous shift nurse manager experienced but no success for most of the day. At end of shift while patient was turned to be left side lying his saturations quickly increased to the Mid to high 80's. 1 bowel movement 2325mL of urine output.
--- NOTE | 2023-04-20 20:35 | PM.PN ---
Subjective Subjective: Patient on maximum ventilator settings, paralytics-still saturating around 80 to 85% Any attempts to taper off paralytic or even on minimal movement-is desaturating into the 70s -Very poor prognosis Medications: Reviewed: Yes Vitals/I&O/Wt Last Vital Signs Temp 101.3 F H 04/20/23 20:00 Pulse 82 04/20/23 20:19 Resp 16 04/20/23 20:19 BP 121/79 04/20/23 20:00 Pulse Ox 85 L 04/20/23 20:19 O2 Del Method Mechanical Ventilation 04/20/23 20:19 FiO2 100 04/20/23 20:19 04/20/23 04/20/23 04/20/23 06:59 14:59 22:59 Intake Total 838.201 / 2071.765 787.343 / 787.343 832.208 / 1619.551 Output Total 1490 / 4135 1375 / 1375 950 / 2325 Balance -651.799 / -2063.235 -587.657 / -587.657 -117.792 / -705.449 Weight last 48 hrs Weight 501 lb 11.2 oz Weight 503 lb 12.8 oz Physical Exam Narrative: PHYSICAL EXAM: General: lying in bed, sedated and intubated. 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 SKIN: no rash Urinary Catheter Management: Kothari: Cath Placed During This Visit: yes Reason for Continuing Indwelling Catheter: Accurate Measurement of Urinary Output in Critically Ill Patients Urinary Catheter Date of Insertion: 04/13/23 Urinary Catheter Time of Insertion: 20:00 Data 04/21/23 02:08 04/21/23 02:08 Other Labs: Radiology Impressions Vascular Ultrasound 04/17/23 05:02 IMPRESSION: No organized collection or pseudoaneurysm identified. Venous Duplex 04/17/23 05:02 IMPRESSION: No sonographic evidence of deep vein thrombosis. Chest X-Ray 04/21/23 06:00 IMPRESSION: No significant change. Extensive pulmonary infiltrates. Laboratory Results WBC 15.65 10^3/uL (3.29-11.43) H 04/21/23 02:08 RBC 4.84 10^6/uL (3.85-5.65) 04/21/23 02:08 Hgb 13.10 g/dL (11.27-16.99) 04/21/23 02:08 Hct 44.2 % (37-53) 04/21/23 02:08 MCV 91.3 fl (82-101) 04/21/23 02:08 MCH 27.1 pg (27-33) 04/21/23 02:08 MCHC 29.6 g/dL (30-55) L 04/21/23 02:08 RDW 16.0 % (12.1-15.1) H 04/21/23 02:08 Plt Count 252 10^3/cmm (157-399) 04/21/23 02:08 MPV 10.4 fL (7.4-10.4) 04/21/23 02:08 Neut % (Auto) 62.1 % 04/21/23 02:08 Lymph % (Auto) 12.7 % 04/21/23 02:08 [place] % (Auto) 20.6 % 04/21/23 02:08 Eos % (Auto) 0.1 % 04/21/23 02:08 Baso % (Auto) 0.3 % 04/21/23 02:08 Neut # (Auto) 9.74 10^3/uL (1.8-7.7) H 04/21/23 02:08 Lymph # (Auto) 2.0 10^3/uL (0.8-4.8) 04/21/23 02:08 [place] # (Auto) 3.2 10^3/uL (0.2-0.9) H 04/21/23 02:08 Eos # (Auto) 0.0 10^3/uL (0.0-0.8) 04/21/23 02:08 Baso # (Auto) 0.1 10^3/uL (0.0-0.1) 04/21/23 02:08 Nucleated RBC % (auto) 0.1 % 04/21/23 02:08 Nucleated RBCs # 0.0 /100WBC 04/21/23 02:08 APTT 62.8 SECONDS (23.9-36.7) H 04/21/23 15:57 Specimen Type Arterial 04/21/23 04:30 Sample Site Brachial, left 04/21/23 04:30 ABG pH 7.33 (7.35-7.45) L 04/21/23 04:30 ABG pCO2 72.6 mmHg (35-45) H* 04/21/23 04:30 ABG pO2 61.2 mmHg (80.0-100.0) L 04/21/23 04:30 ABG PO2/FiO2 Ratio 0 04/21/23 04:30 ABG HCO3 38.1 mmol/L (22-26) H 04/21/23 04:30 ABG O2 Saturation 85.1 04/14/23 16:09 ABG Base Excess 9.1 mmol/L (-2.0-2.0) H 04/21/23 04:30 Marcos Test Pos 04/21/23 04:30 A-a O2 Gradient 76.9 mmHg (5-10) H 04/14/23 16:09 Hematocrit 42.1 % (42-52) 04/21/23 04:30 Hgb O2 Saturation 84.1 % (95-100) L 04/14/23 16:09 Carboxyhemoglobin 0.7 %THgb (0.4-20.1) 04/14/23 16:09 Methemoglobin 0.5 % (0.4-1.5) 04/14/23 16:09 Total Hemoglobin 14.6 g/dL (14-18) 04/14/23 16:09 Sodium 138.0 mmol/L (131-143) 04/14/23 16:09 Potassium 4.0 mmol/L (3.5-5.0) 04/14/23 16:09 Glucose 115.0 mg/dL (70-115) 04/14/23 16:09 Ionized Calcium 1.1 mmol/L (1.1-1.4) 04/14/23 16:09 O2 Delivery Device Vent 04/21/23 04:30 Mechanical Rate 16.0 04/16/23 03:55 FiO2 100.0 % 04/21/23 04:30 Tidal Volume 0.50 04/20/23 08:35 PEEP 14.0 cmH20 04/21/23 04:30 Pot Pusher ID Alewe 04/21/23 04:30 Sodium 142 mmol/L (136-145) 04/21/23 02:08 Potassium 4.5 mmol/L (3.5-5.1) 04/21/23 02:08 Chloride 99 mmol/L (98-107) 04/21/23 02:08 Carbon Dioxide 32 mmol/L (22-29) H 04/21/23 02:08 Anion Gap 15.5 (5-19) 04/21/23 02:08 BUN 57 mg/dL (6-20) H 04/21/23 02:08 Creatinine 1.4 mg/dL (0.7-1.2) H 04/21/23 02:08 GFR Calculation 52.4 mL/min (90-130) L 04/21/23 02:08 Glucose 110 mg/dL (65-115) 04/21/23 02:08 POC Glucose 107 mg/dL (70-110) 04/21/23 10:02 Calculated Osmolality 310 mOsm/kg (285-295) H 04/21/23 02:08 Lactic Acid 5.0 mmol/L (0.5-2.2) H* 04/12/23 19:25 Lactic Acid (Sepsis) 1.7 mmol/L (0.5-2.2) 04/12/23 22:12 Calcium 8.0 mg/dL (8.5-10.5) L 04/21/23 02:08 Phosphorus 3.7 mg/dL (2.5-4.5) 04/20/23 03:09 Magnesium 2.6 mg/dL (1.7-2.3) H 04/20/23 03:09 Total Bilirubin 0.8 mg/dL (0.15-1.2) 04/21/23 02:08 AST 54 U/L (0-40) H 04/21/23 02:08 ALT 118 U/L (0-41) H 04/21/23 02:08 Alkaline Phosphatase 47 U/L (40-130) 04/21/23 02:08 Creatine Kinase 105 U/L (39-308) 04/19/23 05:39 Troponin T Baseline 47 ng/L (0-15) H 04/12/23 19:25 Troponin T 120 Minute 50.38 ng/L (0-15) H 04/12/23 21:05 Delta Troponin T 3.38 ABS# (0-10) 04/12/23 21:05 Troponin T Hi Sens 6Hr 70.00 ng/L (0-15) H 04/13/23 00:53 Troponin T Hi Sens 6Hr Delta 23.00 ng/L (0-12) H* 04/13/23 00:53 NT-Pro-B Natriuret Pep 5601 pg/mL (0-125) H 04/12/23 19:25 Total Protein 6.4 g/dL (6.6-8.7) L 04/21/23 02:08 Albumin 3.1 g/dL (3.5-5.2) L 04/21/23 02:08 Globulin 3.3 g/dL (1.3-4.6) 04/21/23 02:08 Procalcitonin 0.16 ng/mL (0-0.5) 04/12/23 19:25 TSH 4.86 uIU/mL (0.27-4.20) H 04/12/23 19:25 Free T4 0.93 ng/dL (0.82-1.77) 04/13/23 03:03 Urine Color Yellow (Yellow) 04/12/23 20:01 Urine Appearance Clear (CLEAR) 04/12/23 20:01 Urine pH 5 (5-7) 04/12/23 20:01 Ur Specific [place] 1.025 (1.005-1.030) 04/12/23 20:01 Urine Protein 1+ (Negative) H 04/12/23 20:01 Urine Glucose (UA) Norm (Normal) 04/12/23 20:01 Urine Ketones Negative (Negative) 04/12/23 20:01 Urine Blood Neg (Negative) 04/12/23 20:01 Urine Nitrate Negative (Negative) 04/12/23 20:01 Urine Bilirubin 1+ (Negative) H 04/12/23 20:01 Urine Urobilinogen 1 mg/dL (Negative) H 04/12/23 20:01 Ur Leukocyte Esterase Negative (Negative) 04/12/23 20:01 Urine RBC 0-4 /hpf (0-2) H 04/12/23 20:01 Urine WBC 0-4 /hpf (0-5) H 04/12/23 20:01 Ur Squamous Epith Cells 0-4 /hpf (0-5) H 04/12/23 20:01 Amorphous Sediment Not Reportable 04/12/23 20:01 Urine Bacteria Trace /hpf (NONE) 04/12/23 20:01 Hyaline Casts 10-15 /lpf H 04/12/23 20:01 Fine Granular Casts 0-4 /lpf H 04/12/23 20:01 Urine Mucus 1+ /hpf 04/12/23 20:01 Urine Opiates Screen Negative ng/mL (Negative) 04/12/23 20:01 Ur Barbiturates Screen Negative ng/mL (Negative) 04/12/23 20:01 Ur Phencyclidine Scrn Negative ng/mL (Negative) 04/12/23 20:01 Ur Amphetamines Screen Negative ng/mL (Negative) 04/12/23 20:01 U Benzodiazepines Scrn Negative ng/mL (Negative) 04/12/23 20:01 Urine Cocaine Screen Negative ng/mL (Negative) 04/12/23 20:01 U Marijuana (THC) Screen Negative ng/mL (Negative) 04/12/23 20:01 Coronavirus 229E (PCR) Not detected (NOT DETECT) 04/13/23 08:30 Influenza Type A Ag negative (Negative) 04/12/23 20:35 Influenza Type B Ag negative (Negative) 04/12/23 20:35 SARS-CoV-2 (PCR) Not detected (NOT DETECT) 04/13/23 08:30 SARS-CoV-2 Ag (Rapid) negative (Negative) 04/12/23 20:01 MRSA (PCR) Not detected (NOT DETECTED) 04/18/23 12:15 Micro: Microbiology 04/19/23 20:44 Blood Culture - Preliminary Blood SPECIMEN COLLECTED 04/19/23 20:40 Blood Culture - Preliminary Blood SPECIMEN COLLECTED A&P Assessment and plan (1) Acute respiratory failure: Acute on chronic respiratory failure secondary to ARDS in patient with morbid obesity and possible underlying heart failure Currently on CMV 500/100/PEEP 14-saturating 81%-even on maximal ventilatory settings-patient is saturating between 80 to 85%; any attempts to wean off paralytic or even with slight movement patient is desaturating into the 70s. -On Lasix drip and monitor electrolytes -Unfortunately echo could not give good assessment; according to family patient was being considered for cardiology workup as outpatient which has been postponing for quite some time Qualifiers: Respiratory failure complication: hypoxia and hypercapnia Qualified Code(s): J96.01 - Acute respiratory failure with hypoxia; J96.02 - Acute respiratory failure with hypercapnia (2) Pneumothorax: Morbidly obese patient on ventilator-with significant chest wall compliance-he was placed on high PEEP 14-16 Chest x-ray 04/16/2023 showed small left apical pneumothorax-reduced PEEP to 10 and monitor with serial chest x-ray throughout the day-eventually towards the end of the day chest x-ray showed resolution of left apical pneumothorax but showed significant pulmonary edema Qualifiers: Pneumothorax type: spontaneous, primary Qualified Code(s): J93.11 - Primary spontaneous pneumothorax (3) Obesity hypoventilation syndrome: This patient had poor respiratory reserve due to super morbid obesity BMI 75 ABG shows acceptable pH with elevated pCO2 suggestive of chronic hypercapnia He will need higher PEEP's to counteract chest wall complaints-however he developed small left apical pneumothorax and however it is resolved now. Will cautiously increase PEEP. (4) Non-STEMI (non-ST elevated myocardial infarction): Elevated BNP and troponins concerning for NSTEMI However delta troponin is normal Currently on heparin Bedside echocardiogram did not show good ultrasonic views given his extensive pulmonary edema as well as body habitus Will continue Lasix drip Encouraged to keep net negative fluid balance (5) Acute renal failure (ARF): TITI patient presented with creatinine 1.9 Currently creatinine at 1.2 Currently on Lasix drip-monitor renal parameters Qualifiers: Acute renal failure type: unspecified Qualified Code(s): N17.9 - Acute kidney failure, unspecified (6) Goals of care, counseling/discussion: I have discussed extensively with the patient's and stepson at bedside about medical condition, management plan and about the poor prognosis couple of days ago Overall patient has very poor prognosis Plan ICU CHECKLIST: Problem list updated Verbal orders reviewed and signed Code Status: Full Disposition: ICU Critically ill: Yes MD discussed with: Hospitalist, RN, RT, family Analgesia: Fentanyl Glycemic Control: N/A Nutrition: TPN-we will hold off to avoid fluid overload Restraint Renewal (within 24 hrs): Yes Ulcer Prophylaxis: PPI Chemical Thromboprophylaxis: Prophylaxis: Heparin Mechanical Thromboprophylaxis: Unfortunately size not available Need for Central line: PICC Need for Kothari catheter: Yes for urine output monitoring Attestations Medical Necessity Statement*: Will continue care in ICU for close monitoring as patient is intubated for acute on chronic hypoxic/hypercapnic respiratory failure secondary to fluid overload Critical Care Time: This patient has a high probability of clinically significant, sudden or life threatening deterioration of the patient's (pulmonary, cardiac, renal, neurological) systems required my full, direct attention, the highest level of physician preparedness for urgent intervention and personal management. I managed/supervised life or organ supporting interventions that required frequent physician assessment. I devoted my full attention in the ICU to the direct care of this patient for the period of time indicated above. Time I spent with family or surrogate(s) is included only if the patient was incapable of providing necessary information or participating in decision making. This time includes the following services provided: Telemetry review Mechanical Ventilation Hemodynamic interpretation, assessment and management Review and interpretation of CXR Review and interpretation of lab values Review and interpretation of microbiologic data and culture results Review of medications and administration Review and interpretation of Nutrition requirements and management Discussion of management with other consultants and services Clinical update to family members [x] Data and vital sign review and interpretation [x] Patient assessment, examination and intervention [x] Documentation [x] Medication orders and management Time spent for teaching as well as performing procedures are billed separately and is not included in this note Critical Care Time (min): 46 Coding Level of Care Code Acute Code for [facility] Diagnoses Acute respiratory failure J96.01; J96.02 Respiratory failure complication: hypoxia and hypercapnia Primary spontaneous pneumothorax J93.11 Pneumothorax type: spontaneous, primary Obesity hypoventilation syndrome E66.2 Non-STEMI (non-ST elevated myocardial infarction) I21.4 Acute renal failure, unspecified acute renal failure type N17.9 Acute renal failure type: unspecified Goals of care, counseling/discussion Z71.89 Time Spent (min) 43
[2023-04-20] MEDS: pantoprazole 40 mg SDV IVP (22:30)
[2023-04-20] MEDS: chlorhexidine gluconate 4% Btl 118 mL 1 APPLIC TOPICAL (22:31)
[2023-04-21] VITALS (87 sets, daily range): BP systolic 70–145; BP diastolic 42–97; PULSE 0–131; RESP 16–17; TEMP 36.8–38.8; O2SAT 31–91
[2023-04-21] MEDS: acetylcysteine 200 mg/mL MDV 10 mL INHALATION ×3 (00:21→07:46)
[2023-04-21] MEDS: ipratropium-albuterol 3 mL Neb INHALATION ×5 (00:21→15:27)
[2023-04-21] MEDS: cisatracurium 100 MG in sodium chloride 0.9% 50 ML 24.1600000000000001 MG IV ×4 (01:25→15:02)
[2023-04-21 02:31] LABS: Basophils # 0.1 10^3/uL (0.0-0.1); Basophils % 0.3 %; Eosinophils % 0.1 %; Hematocrit 44.2 % (37-53); Lymphocytes % 12.7 %; Mean Corpuscular HGB Conc 29.6 g/dL (30-55); Mean Corpuscular Hemoglobin 27.1 pg (27-33); Mean Corpuscular Volume 91.3 fl (82-101); Mean Platelet Volume 10.4 fL (7.4-10.4); Monocytes # 3.2 10^3/uL (0.2-0.9); Monocytes % 20.6 %; Neutrophils # 9.74 10^3/uL (1.8-7.7); Neutrophils % 62.1 %; Nucleated Red Blood Cells % 0.1 %; Platelet Count 252 10^3/cmm (157-399); Red Blood Count 4.84 10^6/uL (3.85-5.65); White Blood Count 15.65 10^3/uL (3.29-11.43)
[2023-04-21 02:57] LABS: Partial Thromboplastin Time 76.4 SECONDS (23.9-36.7)
[2023-04-21 03:00] LABS: Alanine Aminotransferase 118 U/L (0-41); Albumin Level 3.1 g/dL (3.5-5.2); Alkaline Phosphatase 47 U/L (40-130); Blood Urea Nitrogen 57 mg/dL (6-20); Carbon Dioxide 32 mmol/L (22-29); Chloride 99 mmol/L (98-107); Creatinine Clr Calc Pharmacy 113.5057; Globulin 3.3 g/dL (1.3-4.6); Glomerular Filtration Rate 52.4 mL/min (90-130); Glucose 110 mg/dL (65-115); Osmolality Calculated 310 mOsm/kg (285-295); Sodium 142 mmol/L (136-145); Total Bilirubin 0.8 mg/dL (0.15-1.2); Total Protein 6.4 g/dL (6.6-8.7)
[2023-04-21 03:03] LABS: Anion Gap 15.5 (5-19); Aspartate Amino Transferase 54 U/L (0-40); Potassium 4.5 mmol/L (3.5-5.1)
[2023-04-21 04:42] LABS: ABG PH Result 7.33 (7.35-7.45); Arterial Blood Gas Hematocrit 42.1 % (42-52); Base Excess ABG 9.1 mmol/L (-2.0-2.0); Blood Gas Allen Test Pos; Blood Gas Sample Site Brachial, left; Blood Gas Sample Type Arterial; HCO3 ABG 38.1 mmol/L (22-26); Oxygen Device VENT; PO2 ABG 61.2 mmHg (80.0-100.0); PO2 FiO2 Ratio Arterial Blood 0
[2023-04-21] MEDS: fentaNYL 1,000 MCG/100 ML BAG 17.5 MCG IV ×3 (04:59→15:39)
[2023-04-21] MEDS: heparin drip 25,000 UNIT/500 ML PREMIX 36 UNIT IV (05:02)
[2023-04-21] MEDS: meropenem 1,000 MG in sodium chloride 0.9% (plus) 50 ML 100 MG IV (05:45)
--- NOTE | 2023-04-21 06:00 | XRR_ITS ---
PROCEDURE INFORMATION: Exam: XR Chest Exam date and time: 04/21/2023 6:16 AM Age: 57 years old Clinical indication: Other: Resp distress; Additional info: Fever congestion resp distress TECHNIQUE: Imaging protocol: Radiologic exam of the chest. Views: 1 view. COMPARISON: CR XR chest 1V portable [id number] 04/20/2023 2:51 PM FINDINGS: Tubes, catheters and devices: Stable life support lines. The right entering PICC line is poorly seen however. Lungs: Extremely extensive pulmonary infiltrates are unchanged. Pleural spaces: Unremarkable. No pleural effusion. No pneumothorax. Heart/Mediastinum: Stable cardiomegaly. Bones/joints: Unremarkable. XR/XR chest 1V portable [id number] IMPRESSION: No significant change. Extensive pulmonary infiltrates.
[2023-04-21 08:24] LABS: ABG PCO2 72.6 mmHg (35-45)
[2023-04-21 09:05] LABS: Partial Thromboplastin Time 65.5 SECONDS (23.9-36.7)
[2023-04-21] MEDS: acetaminophen 325 mg Tablet 650 MG PO (09:06)
[2023-04-21] MEDS: aspirin 81 mg Chew Tablet PO (09:07)
[2023-04-21] MEDS: metOLazone 5 MG Tablet OG-TUBE (09:07)
[2023-04-21] MEDS: potassium chloride ER 20 mEq Tablet 40 MEQ PO (09:07)
[2023-04-21] MEDS: lactulose oral liq 20 gm/30 mL UDC 10 GM PO (09:07)
[2023-04-21] MEDS: midazolam hcl 100 MG/100 ML BAG 6 MG IV (09:33)
--- NOTE | 2023-04-21 10:00 | P.PN_ITS ---
Subjective 2 Subjective: This morning x-ray showing atelectasis likely with mucous plug on left side with vascular congestion On right, Currently saturating 77-78%On PEEP of 14 and 100% FiO2 Patient had 2 bowel movements yesterday Hemoglobin stable White count 15,000 pO2 61 Hypercapnia noted today with respiratory acidosis Vitals/I&O/Wt Last Vital Signs Temp 100.2 F H 04/21/23 04:15 Pulse 88 04/21/23 07:40 Resp 16 04/21/23 09:23 BP 108/65 04/21/23 06:15 Pulse Ox 76 L 04/21/23 09:23 O2 Del Method Mechanical Ventilation 04/21/23 07:30 FiO2 100 04/21/23 09:23 04/20/23 04/21/23 04/21/23 22:59 06:59 14:59 Intake Total 920.560 / 6486.879 1743.167 / 2836.070 272.433 / 272.433 Output Total 1450 / 2825 1700 / 4525 Balance -529.440 / -1117.097 -571.833 / -1688.930 272.433 / 272.433 Weight last 48 hrs Weight 224.528 kg Weight 227.567 kg Physical Exam 2 Narrative: Patient intubated and sedated Saturating 77% Adequate urine output Abdomen distended Intertrigo no signs of Malu's gangrene Umbilical area redness noted Still fluid overloaded Bilateral breath sounds I do not appreciate crackles diminished breath sounds on left abdomen with right Febrile events noted Sacral area skin tear without any significant ulcer as per the nursing staff Urinary Catheter Management: Kothari: Cath Placed During This Visit: yes Reason for Continuing Indwelling Catheter: Accurate Measurement of Urinary Output in Critically Ill Patients Urinary Catheter Date of Insertion: 04/13/23 Urinary Catheter Time of Insertion: 20:00 Data 04/21/23 02:08 04/21/23 02:08 Micro: Microbiology 04/19/23 20:44 Blood Culture - Preliminary Blood NEGATIVE TO DATE 04/19/23 20:40 Blood Culture - Preliminary Blood NEGATIVE TO DATE A&P Assessment and plan (1) Elevated brain natriuretic peptide (BNP) level: (2) Cardiogenic shock: (3) Non-STEMI (non-ST elevated myocardial infarction): (4) Hypervolemia: (5) Acute renal failure (ARF): Qualifiers: Acute renal failure type: unspecified Qualified Code(s): N17.9 - Acute kidney failure, unspecified (6) Community acquired pneumonia: Qualifiers: Laterality: unspecified laterality Qualified Code(s): J18.9 - Pneumonia, unspecified organism (7) Acute respiratory failure: Qualifiers: Respiratory failure complication: hypoxia and hypercapnia Qualified Code(s): J96.01 - Acute respiratory failure with hypoxia; J96.02 - Acute respiratory failure with hypercapnia (8) Obesity hypoventilation syndrome: (9) Pneumothorax: Qualifiers: Pneumothorax type: spontaneous, primary Qualified Code(s): J93.11 - Primary spontaneous pneumothorax (10) Ventilator associated pneumonia: (11) Intertrigo: Plan Persistent hypoxia Hypoxic hypercapnic resp failure Respiratory failure requiring mechanical ventilation Patient is making good amount of urine more than 4 L every day but is hypervolemia is not improving X-ray showing vascular congestion right side and complete whiteout on left like related to mucous plug Patient is still on paralytics and sedatives Maximum input is around 70-75 mill per hour Adequate output No indication for dialysis because patient is making more than 4 L with Lasix drip Patient has not responded well to Mucomyst Constipation: Relieved Had 2 bowel movement yesterday KUB unremarkable Abnormal transaminases likely related to significant heart failure exacerbation Ventilator associated pneumonia Patient is still febrile Monitor cultures Escalated antibiotics 3/4 Skin tear, no signs of ulcer on sacral area Intertrigo no signs of Malu's gangrene Abdominal pannus nonpurulent Nystatin powder Acute kidney injury Creatinine worsened with Lasix drip however stable at this point Mild alkalosis Continue potassium supplementation twice daily Appreciate nephro recommendations Non-STEMI EF unknown We have continued heparin drip There is still possibility of thromboembolic phenomenon Guarded prognosis Family meeting conducted CODE STATUS has been changed to DNR/DNI Spoke with Dr. Pfeiffer, family at the bedside Attestations 2 Medical Necessity Statement*: Continue medical management Coding Level of Care Code Critical Care >/= 30 minutes Critical care time (in minutes): 35 The high probability of a clinically significant, sudden or life threatening deterioration, as referenced in this documentation, required my full and direct attention, intervention and personal management. The critical care time shown is in addition to time spent performing any reported separately billable procedures and includes the following: [x] Data and vital sign review and interpretation [x ] Patient assessment, examination and intervention [x] Medication orders and management [x] Patient/Family updates as able [x] Care Coordination and Documentation. Diagnoses Elevated brain natriuretic peptide (BNP) level R79.89 Cardiogenic shock R57.0 Non-STEMI (non-ST elevated myocardial infarction) I21.4 Hypervolemia E87.70 Acute renal failure, unspecified acute renal failure type N17.9 Acute renal failure type: unspecified Community acquired pneumonia J18.9 Laterality: unspecified laterality Acute respiratory failure J96.01; J96.02 Respiratory failure complication: hypoxia and hypercapnia Obesity hypoventilation syndrome E66.2 Primary spontaneous pneumothorax J93.11 Pneumothorax type: spontaneous, primary Ventilator associated pneumonia J95.851 Intertrigo L30.4
[2023-04-21 10:08] LABS: Glucose Point of Care 107 mg/dL (70-110)
--- NOTE | 2023-04-21 11:13 | P.PN_ITS ---
Subjective 2 Subjective: remains on vent on 100 % FIO2 Medications: Reviewed: Yes Vitals/I&O/Wt Last Vital Signs Temp 101.9 F H 04/21/23 10:00 Pulse 95 04/21/23 10:00 Resp 17 04/21/23 10:00 BP 113/68 04/21/23 10:00 Pulse Ox 76 L 04/21/23 10:00 O2 Del Method Mechanical Ventilation 04/21/23 10:00 FiO2 100 04/21/23 10:00 04/20/23 04/21/23 04/21/23 22:59 06:59 14:59 Intake Total 920.560 / 6495.409 9787.167 / 2836.070 272.433 / 272.433 Output Total 1450 / 2825 1700 / 4525 Balance -529.440 / -1117.097 -571.833 / -1688.930 272.433 / 272.433 Weight last 48 hrs Weight 224.528 kg Weight 227.567 kg Physical Exam 2 Narrative: Intubated and sedated Urinary Catheter Management: Kothari: Cath Placed During This Visit: yes Reason for Continuing Indwelling Catheter: Accurate Measurement of Urinary Output in Critically Ill Patients Urinary Catheter Date of Insertion: 04/13/23 Urinary Catheter Time of Insertion: 20:00 Data 04/21/23 02:08 04/21/23 02:08 Micro: Microbiology 04/20/23 08:30 Sputum Culture - Preliminary Sputum - Endotracheal Tube Aspirate 04/19/23 20:44 Blood Culture - Preliminary Blood NEGATIVE TO DATE 04/19/23 20:40 Blood Culture - Preliminary Blood NEGATIVE TO DATE A&P Assessment and plan (1) Acute renal failure (ARF): Qualifiers: Acute renal failure type: unspecified Qualified Code(s): N17.9 - Acute kidney failure, unspecified Plan 1. Acute kidney injury in the setting of volume overload/anasarca: Likely cardiorenal etiology, EF not known -Agree with Lasix drip currently will added metolazone via orogastric tube to augment diuresis -noted rise in Cr from baseline , s/p aggressive duresis , - responding to diuretics appropriately 2. Acute on chronic respiratory failure, intubated sedated, on 100% FiO2 3. Morbid obesity 4. NSTEMI, medical management currently Patient evaluated using audiovisual cart. Time spent 20 minutes Attestations 2 Medical Necessity Statement*: per giselle Coding Level of Care Code Acute Code for Chg Fwd Diagnoses Acute renal failure, unspecified acute renal failure type N17.9 Acute renal failure type: unspecified
[2023-04-21] MEDS: linezolid premix 600 MG/300 ML PREMIX 300 MG IV (12:11)
--- NOTE | 2023-04-21 12:46 | PC.SOCIAL ---
IMM Updated Updated pt's family on IMM. No questions voiced. Provided them a copy. Initialed, dated, & timed copy in chart.
[2023-04-21 16:27] LABS: Partial Thromboplastin Time 62.8 SECONDS (23.9-36.7)
--- NOTE | 2023-04-21 18:21 | PM.DDS ---
Discharge Providers DDS Date of Admission: 04/12/23 21:49 Date Summary Completed: 04/23/23 Attending Provider at Admission: Geovanni Diaz Time of : 04:44 Attending Provider at Discharge: MD JENNIFER Sullivan Diagnoses Hospital Diagnoses (1) Acute renal failure (ARF): Qualifiers: Acute renal failure type: unspecified Qualified Code(s): N17.9 - Acute kidney failure, unspecified Reason for Visit Reason for Visit respiratory distress Summary Date and Time of Date of : 04/21/23 Time of : 04:44 Summary Summary: 57-year-old male who was admitted after respiratory distress, he was intubated by the EMS, patient remained persistently hypoxic despite FiO2 100% and PEEP of 14, patient was diuresed aggressively, he was fluid overloaded with severe signs of congestive heart failure, we were not able to learn more about his echo or wall motion abnormality because of body habitus, we could not do CT because a weight limit, we put him on Lasix drip for more than 2 days which improved his kidney function however hypoxia never improved, he was kept on therapeutic heparin dose, he was diagnosed with non-STEMI as well, he was deemed not stable for transfer to tertiary level of care, EKG was consistent with ST depressions, DVT was ruled out, multiple family meetings were conducted, family decided to pursue DNR/DNI status and switch him to comfort care in case of cardiac arrest however patient gradually worsened became more hypoxic and tachycardic and Additional Data Confirmation of as documented by pronouncing clinician: no pulse, no respirations, no heart sounds and pupils fixed and dilated Family: at bedside Additional persons at bedside: nursing staff Attending/PCP notified?: I am attending Was code activated?: No Autopsy requested?: No Advance directives?: Yes Hospice patient?: No Discharge Plan Discharge Patient Disposition: Condition: Stable Probable Cause of Probable cause of : Cardiac arrest DS Attestations Time Spent in /Discharge Care*: greater than 30 min Quality - AMI: AMI present?: No Quality - Stroke: CVA present?: No Quality - VTE: VTE present?: No Coding Level of Care Code Acute Code for [facility]g Fwd Diagnoses Acute renal failure, unspecified acute renal failure type N17.9 Acute renal failure type: unspecified
--- NOTE | 2023-04-21 19:06 | PC.NURSE ---
Late note, throughout the day, patient has continued to in the mid 70's while occaisonally in the low 80's. Multiple posoitions tried to acheiuve better saturations, but any movement outside of left side lying caused further saturation drops. Ventilators is at 100%FIO2 with a peep of 14. Dr chisholm and roque notified of patient condition. Physicians were considering a bronchoscopy, but patient is not a candidate. Physicians discussed this with family.
--- NOTE | 2023-04-21 19:20 | PC.NURSE ---
At 1608, patient's oxygen saturation fell below 60%. Family requested a call if oxygen levels fell below 60. Nurse contacted daughter Capo, Dr Bradley contact Jazmyne.
--- NOTE | 2023-04-21 19:21 | PC.NURSE ---
Patient's oxygen saturation contuntinues to fall. and additional family members are at bedside. at 1644, patient's heart rythm became asystole. This nurse and Nurse Giancarlo Guajardo verified asystole via auscultation and palpation for 1 minute. Nurse informed sol that the patient has . NUrse alerted Dr nevarez to time of : 1643.
--- NOTE | 2023-04-21 19:23 | PC.NURSE ---
Addendum entered by Jam Pfeiffer RN 04/21/23 19:24: Received call from [facility]. Spoke to loli. Was advised that the patient is not a candidate and we can release to the home. NUrse contacted [facility] per family request.Was advised that due to staffing and available equipment, they cannot pick this patient up at this time due to his size. Equipment will be available tomorrow and they will pick him up at 2pm on 04/22/2023. [facility] will contact the family. Nurse alerted a p supervisor so patient could be taken to [facility]. Patient has been given bed bath and has had all lines removed. Awaiting mixing house operator to bring patient to [facility]. Original Note: [facility]Urse contacts [facility] to report , Was advised he is not a candidate for organ donation. Was advised to continue to hold patient for saving sight screening. Reference#:[id number]
== END 2023-04-21 16:44 | disposition expired | DRG 207 ==
LOC: ER 21:22 → ICU 21:49
PROVIDERS: Student in an Organized Health Care Education/Training Program; Admitting Provider Internal Medicine; Emergency Provider Emergency Medicine; Family Provider Family Medicine; Visit Provider Internal Medicine
DX: J96.21 Acute and chronic respiratory failure with hypoxia (principal); J18.9 Pneumonia, unspecified organism; I21.4 Non-ST elevation (NSTEMI) myocardial infarction; N17.9 Acute kidney failure, unspecified; E66.2 Morbid (severe) obesity with alveolar hypoventilation; Z68.45 Body mass index [BMI] 70 or greater, adult; I13.0 Hypertensive heart and chronic kidney disease with heart failure and stage 1 through stage 4 chronic kidney disease, or unspecified chronic kidney disease; J93.11 Primary spontaneous pneumothorax; J98.11 Atelectasis; I42.9 Cardiomyopathy, unspecified; E87.3 Alkalosis; E87.20 Acidosis, unspecified; J95.851 Ventilator associated pneumonia; J96.22 Acute and chronic respiratory failure with hypercapnia; Z99.81 Dependence on supplemental oxygen; I89.0 Lymphedema, not elsewhere classified; G62.9 Polyneuropathy, unspecified; N18.9 Chronic kidney disease, unspecified; I50.9 Heart failure, unspecified; L30.4 Erythema intertrigo; Z66 Do not resuscitate; R00.0 Tachycardia, unspecified; K59.00 Constipation, unspecified; E87.5 Hyperkalemia; R57.0 Cardiogenic shock; E65 Localized adiposity
CPT/HCPCS: 32555; 36415; 36416; 36573; 36592; 36600; 51702; 71045; 74018; 76604; 76770; 76857; 80048; 80051; 80053; 80306; 81001; 82330; 82550; 82803; 82805; 82962; 83605; 83735; 83880; 84100; 84145; 84439; 84443; 84484; 85025; 85730; 86403; 87040; 87070; 87205; 87426; 87449; 87635; 87641; 87804; 93005; 93971; 93998; 94002; 94003; 94640; 94669; 94799; 96365; 96366; 96367; 96372; 96376; 99291; C1751; C8929; C9113; J0610; J0612; J1644; J1650; J1815; J1885; J1940; J2020; J2185; J2250; J2543; J2704; J2930; J3010; J3490; J7030; J7608; J7799; Q3014; Q9956